=== PATIENT | male | born 1935 | race Caucasian/White ===

== ENCOUNTER 2019-08-27 11:14 | Inpatient (IN) | payer MEDICARE ==
[~2019-08-27] VITALS: Ht 170.2 cm; Wt 73.2 kg
[~2019-08-27 11:14] MED LIST: AMILODIPINE PO; FISHCAP PO; FLOM0.4C39 PO; LISIPOW PO; LOVASTATIN PO; METROPROL PO; MULTLIQ7 PO; OXYC1TAB23 PO; PRADAXA PO; SAWPOW XX; TYLENOL PO; VITAMIN D PO
[2019-08-27] MEDS ORDERED: XARE20TA PO (11:46)
[2019-08-27] MEDS ORDERED: FURO20TA2 PO (11:46)
[2019-08-27] MEDS ORDERED: CO Q200C10 PO (11:46)
[2019-08-27] MEDS ORDERED: DITR5TAB PO (11:46)
[2019-08-27] MEDS ORDERED: FINA5TAB2 PO (11:46)
[2019-08-27] MEDS ORDERED: CEPH500C PO (11:47)
[2019-08-27 13:31] LABS: BASO % 0.3 % (0.0-1.0); EOS # 0.1 10^3/uL (0.0-0.5); EOS % 0.8 % (0.0-3.0); HEMOGLOBIN 13.9 g/dl (13.5-17.5); LYMPH # 0.7 10^3/uL (1.5-5.0); LYMPH % 12.2 % (24.0-44.0); MEAN CORPUSCULAR HEMOGLOBIN 31.2 pg (27.0-33.0); MEAN CORPUSCULAR HGB CONC 33.1 g/dl (32.0-36.5); MEAN CORPUSCULAR VOLUME 94.4 fl (80.0-96.0); MONO # 0.7 10^3/uL (0.0-0.8); MONO % 11.5 % (0.0-5.0); NEUTROPHILS # 4.5 10^3/uL (1.5-8.5); NEUTROPHILS % 73.4 % (36.0-66.0); PLATELET COUNT, AUTOMATED 180 10^3/uL (150-450); RED BLOOD COUNT 4.45 10^6/uL (4.30-6.10); WHITE BLOOD COUNT 6.1 10^3/uL (4.0-10.0)
--- NOTE | 2019-08-27 13:31 | REP ---
CT of the abdomen and pelvis without IV or bowel contrast for right flank pain: There are no comparisons. There is a large right pleural effusion. The the. The hepatic parenchyma is homogeneous. There are numerous tiny gallbladder calculi, biliary gravel, layering dependently in the gallbladder. The gallbladder is otherwise unremarkable. There is no biliary duct dilatation. The pancreas and spleen are unremarkable. The adrenals are unremarkable. There are no renal calculi. There is no hydronephrosis. There is bilateral renal cortical atrophy. The abdominal aorta is unremarkable except for calcified atheroma. There is no periaortic adenopathy or mass. There is no bowel distension or obstruction. The mesentery is unremarkable. Pelvis: There is an irregular 2.1 cm calcification with irregular margins posterolaterally in the bladder on the left. The there is sigmoid colon diverticulosis without diverticulitis. There is no pelvic adenopathy or ascites. There is a left hip arthroplasty resulting in beam hardening artifact and image degradation in the inferior pelvis. There is advanced osteoarthritis of the right hip. There is degenerative disc disease throughout the lumbar spine. Impression: Large right pleural effusion. There are no renal or ureteral calculi. No hydronephrosis. There are a few small atheromatous calcifications in the kidneys. Abdominal aorta is unremarkable. No bowel distension or obstruction. No ascites. Diverticulosis without diverticulitis. 2.1 cm calcification per STIR laterally in the bladder with irregular margins. Multilevel lumbar spine degenerative disc disease. Advanced right hip osteoarthritis. Left hip arthroplasty. Electronically Signed by Abraham Viramontes MD 08/27/2019 01:22 P
[2019-08-27 13:40] LABS: INR 2.31; PROTHROMBIN TIME 25.2 SECONDS (11.8-14.0)
[2019-08-27 13:41] LABS: PARTIAL THROMBOPLASTIN TIME 43.4 SECONDS (25.0-38.4)
[2019-08-27 13:49] LABS: CALCIUM LEVEL 8.5 MG/DL (8.8-10.2); CREATININE FOR GFR 1.22 MG/DL (0.70-1.30); POTASSIUM SERUM 4.1 MEQ/L (3.5-5.1)
[2019-08-27] MEDS ORDERED: METO25TA4 PO (16:10)
[2019-08-27] MEDS ORDERED: LOVA40TA PO (16:10)
[2019-08-27] MEDS ORDERED: TAMS1CAP17 PO (16:10)
[2019-08-27] MEDS ORDERED: LISI-672 PO (16:10)
[2019-08-27] MEDS ORDERED: CO Q1CAP2 PO (16:10)
[2019-08-27] MEDS ORDERED: KP F1200 PO (16:10)
[2019-08-27] MEDS ORDERED: MAALOX 30 ML SUSP *UDC PO PRN (16:30)
[2019-08-27] MEDS ORDERED: MOM 30ML SUSPENSION UDC PO PRN (16:30)
--- NOTE | 2019-08-27 16:48 | HPEPDOC ---
General Date of Admission 08/27/19 Date of Service: Aug 27, 2019 Chief Complaint The patient is a 84-year-old male admitted with a reason for visit of Blood In Urine. Source: Patient Exam Limitations: No limitations Timing/Duration: Other (2-3 days) Severity: Mild Associated Symptoms: Weakness, Other (. Right flank pain and hematuria) History of Present Illness This is a very pleasant 84 years old white male with past medical history of coronary artery disease status post aortic valve replacement with bio prosthetic valve, possible CABG, but he is not sure hypertension, hyperlipidemia, atrial fibrillation, BPH, history of right pleural effusion wasn't his usual state of health since last 2-3 days when he noticed large amount of blood in the urine and he was seen at an urgent care where he was prescribed Keflex for UTI. Patient this morning, developed waves of right flank pain which is dull, intermittent, nonradiating, associated with hematuria, not relieved with any pain meds. No chest pain, no shortness of breath. Patient is being admitted with the diagnosis of hematuria and large right pleural effusion Home Medications Scheduled Cephalexin (Cephalexin) 500 Mg Capsule, 500 MG PO TID, (Reported) Finasteride (Finasteride) 5 Mg Tablet, 5 MG PO DAILY, (Reported) Fish Oil/Dha/Epa (Fish Oil 1,200 mg Fish Oil) 1 Each Capsule, 1 CAP PO BID, (Reported) Furosemide (Furosemide) 20 Mg Tablet, 20 MG PO DAILY, (Reported) Lisinopril (Lisinopril) 30 Mg Tablet, 30 MG PO DAILY, (Reported) Lovastatin (Lovastatin) 40 Mg Tablet, 80 MG PO QHS, (Reported) Metoprolol Tartrate (Metoprolol Tartrate) 25 Mg Tablet, 25 MG PO BID, (Reported) PCP INSTRUCTED PT THAT THEY MAY TAKE A THIRD TABLET DURING THE DAY NEEDED FOR HEART RATE AND HIGH BLOOD PRESSURE Oxybutynin Chloride (Ditropan Xl) 5 Mg Tab.er.24, 5 MG PO DAILY, (Reported) Rivaroxaban (Xarelto) 20 Mg Tablet, 20 MG PO QPM, (Reported) WITH DINNER Tamsulosin Hcl (Tamsulosin HCl) 0.4 Mg Capsule, 0.4 MG PO DAILY, (Reported) Ubidecarenone (Co Q-10) 200 Mg Capsule, 200 MG PO DAILY, (Reported) Allergies Coded Allergies: No Known Allergies (Unverified , 08/27/19) Past Medical History Medical History A. fib, hypertension, hyperlipidemia, aortic wall replacement, questionable C ABG, BPH Surgical History Bioprosthetic aortic valve, left hip replacement, carpal tunnel syndrome repair on left side Family History Significant Family History: No pertinent family hx Social History * Smoker: Denies Alcohol: rarely A-FIB/CHADSVASC A-FIB History Current/History of A-Fib/PAF?: Yes Current PO Anticoag Therapy: Yes Review of Systems Constitutional: Denies: Chills, Fever, Malaise, Night Sweats, Weakness, Fatigue, Weight Loss, Lethargy, Other Eyes: Denies: Pain, Vision change, Conjunctivae inflammation, Eyelid inflammation, Redness, Other ENT: Denies: Head Aches, Ear Pain, Dysphagia, Sinus Congestion, Post Nasal Drip, Sore Throat, Epistaxis, Other Symptoms Skin: Denies: Rash, Lesions, Jaundice, Bruising, Itching, Dry, Breakdown, Nail Changes, Other Pulmonary: Denies: Dyspnea, Cough, Pleuritic Chest Pain, Other Symptoms Gastrointestinal: Reports: Other Symptoms (and right flank pain) Genitourinary: Reports: Hematuria (, hematuria), Other Symptoms Hematologic: Denies: Bruising, Bleeding Excessively, Petecchia, Purpura, Enlarged Lymph Nodes, Other Hematologic Endocrine: Denies: Polydipsia, Polyphagia, Polyuria, Heat Intolerance, Cold Intolerance, Other Endocrine Sx Musculoskeletal: Denies: Neck Pain, Back Pain, Shoulder Pain, Arm Pain, Hand Pain, Leg Pain, Foot Pain, Joint Pain, Muscle Pain, Spasms, Other Symptoms Neurological: Denies: Weakness, Numbness, Incoordination, Change in speech, Confusion, Seizures, Other Symptoms Psych: Denies: Mood Normal, Anxiety, Depression, Memory Issues, Thoughts of Self Harm, Anger, Thoughts of Harming Other, Other Psych Physical Examination General Exam: Positive: Alert, Cooperative Eye Exam: Positive: PERRLA, Conjunctiva & lids normal ENT Exam: Positive: Atraumatic, Mucous membr. moist/pink Neck Exam: Positive: Supple, JVD Chest Exam: Positive: Clear to auscultation, Normal air movement Heart Exam: Positive: Rate Normal, Normal S1, Normal S2 Abdomen Exam: Positive: Normal bowel sounds, Soft, Tenderness (. No tenderness, no positive Ordoñez's punch on right side) Extremity Exam: Positive: Normal pulses Skin Exam: Negative: Nl turgor and temperature, Rash, Breakdown, Lesion, Pruritus, Other skin issue Neuro Exam: Negative: Normal Gait, Normal Speech, Strength at 5/5 X4 ext, Normal Tone, Sensation Intact, Cranial Nerves 3-12 NL, Reflexes 2+, Other Psych Exam: Negative: Mental status NL, Mood NL, Anxiety, Memory Intact, Oriented x 3, Other Vital Signs Vital Signs Date Time Temp Pulse Resp B/P (MAP) Pulse Ox O2 Delivery O2 Flow Rate FiO2 08/27/19 16:01 63 16 142/90 (107) 97 Room Air 08/27/19 11:15 98.0 Laboratory Data Labs 24H Laboratory Tests 2 08/27/19 12:55: Immature Granulocyte % (Auto) 1.8, Neutrophils (%) (Auto) 73.4H, Lymphocytes (%) (Auto) 12.2L, Monocytes (%) (Auto) 11.5H, Eosinophils (%) (Auto) 0.8, Basophils (%) (Auto) 0.3, Neutrophils # (Auto) 4.5, Lymphocytes # (Auto) 0.7L, Monocytes # (Auto) 0.7, Eosinophils # (Auto) 0.1, Basophils # (Auto) 0.0, Nucleated Red Blood Cells % (auto) 0.0, Prothrombin Time 25.2H, Prothromb Time International Ratio 2.31, Activated Partial Thromboplast Time 43.4H, Urine Color ARMANDO, Urine Appearance CLOUDYH, Urine pH 5.0, Urine Specific [place] 1.015, Urine Protein 1+H, Urine Glucose (UA) NEGATIVE, Urine Ketones NEGATIVE, Urine Blood 3+H, Urine Nitrite NEGATIVE, Urine Bilirubin NEGATIVE, Urine Urobilinogen 0.2, Urine Leukocyte Esterase NEGATIVE, Urine WBC (Auto) 27H, Urine RBC (Auto) TNTCH, Urine Hyaline Casts (Auto) 0, Urine Bacteria (Auto) 1+H, Urine Squamous Epithelial Cells 0, Urine Amorphous Sediment SMALLH, Urine Mucus (Auto) SMALL, Urine Sperm (Auto) , Anion Gap 7L, Glomerular Filtration Rate 60.0, Calcium Level 8.5L, NT- Pro-B-Type Natriuretic Peptide 3124H CBC/BMP Laboratory Tests 08/27/19 12:55 Microbiology Microbiology 08/27/19 Urine Culture, Received Pending Problems (1) Pleural effusion, right Status: Acute Problem Text: 84 years old white male with past medical history of CAD, status post aortic wall replacement with bioprosthesis. Questionable history of CABG, also in the past has developed right pleural effusion which was drained at [facility]. He presented this time with right flank pain and CAT scan of abdomen and pelvis essentially showed: Large right pleural effusion. There are no renal or ureteral calculi. No hydronephrosis. There are a few small atheromatous calcifications in the kidneys. Abdominal aorta is unremarkable. No bowel distension or obstruction. No ascites. Diverticulosis without diverticulitis. 2.1 cm calcification per STIR laterally in the bladder with irregular margins. Multilevel lumbar spine degenerative disc disease. Advanced right hip osteoarthritis. Left hip arthroplasty. His WBC count 6.1, hemoglobin 13.9, hematocrit 42, platelets of 1 ED [place] normal with BUN of 50 and creatinine 1.22. INR is 2.31 and BNP 3124 Admit patient to PCU with patient monitor Echocardiogram Serial troponin Continue home meds Hold Xarelto Thoracentesis in a.m. Cardiology consultation with Dr. Eller has been requested Continue all other home meds Further, as per cardiology recommendations DVT prophylaxis with bilateral SCDs Diet 2 g sodium Activity as tolerated (2) Hematuria Status: Acute Problem Text: Hematuria, most likely secondary to Xarelto and possible UTI Urine cultures have been sent from ED Will start Rocephin 1 g IV piggyback every 24 hours Hold Xarelto Monitor H&H and a urine (3) HTN (hypertension) Status: Chronic Problem Text: Continue home meds (4) Atrial fibrillation Status: Chronic Problem Text: Telemetry monitoring Continue home meds Hold Xarelto Rodas consult in a.m. (5) History of prosthetic aortic valve Status: Chronic Problem Text: Continue home meds (6) Hyperlipemia Status: Chronic Problem Text: Continue home meds Plan / VTE VTE Prophylaxis Ordered?: Yes KIRILL WYNN MD Aug 27, 2019 16:48
[2019-08-27] MEDS ORDERED: cefTRIAXone SOD 1 GM in D5W MINI-BAG PLUS 50 ML IV SCH (17:00)
--- NOTE | 2019-08-27 17:25 | REP ---
Chest x-ray: Two views. History: Large right pleural effusion. Comparison: Chest x-ray August 07, 2012. Findings: The patient is status post prior median sternotomy and aortic valve replacement. Mild cardiomegaly is observed. The left lung is clear. Pulmonary vasculature is not increased. On the right, there is a blunting of the posterior and lateral pleural angles consistent with a moderate right pleural effusion. Right lung is otherwise clear. No bony destructive lesion is seen. Impression: Status post aortic valve replacement. Moderate right pleural effusion noted. Otherwise no active disease. Electronically Signed by Davis Grimes MD 08/27/2019 07:38 P
[2019-08-27 18:30] VITALS: BP 144/82
[2019-08-27] MEDS ORDERED: SLF 3 ML SYR IV PRN (18:45)
[2019-08-27 20:00] VITALS: BP 146/75
[2019-08-27] MEDS: DOCUSATE SODIUM 100 MG CAP PO SCH (20:12)
[2019-08-27] MEDS: SIMVASTATIN 40 MG TAB PO SCH (20:12)
[2019-08-27] MEDS: METOPROLOL TART 25 MG TABLET PO SCH (20:14)
[2019-08-27] MEDS: SLF 3 ML SYR IV SCH (20:17)
[2019-08-27] MEDS: ACETAMINOPHEN TAB 650MG DOSE (2X325MG) PO PRN (20:23)
[2019-08-27 23:59] VITALS: BP 147/72
[2019-08-28] MEDS: ACETAMINOPHEN TAB 650MG DOSE (2X325MG) PO PRN ×5 (00:31→20:34)
[2019-08-28 04:00] VITALS: BP 152/70
[2019-08-28] MEDS: SLF 3 ML SYR IV SCH ×3 (04:33→21:10)
[2019-08-28 05:56] LABS: HEMATOCRIT 39.9 % (42.0-52.0); HEMOGLOBIN 13.3 g/dl (13.5-17.5); MEAN CORPUSCULAR HEMOGLOBIN 31.3 pg (27.0-33.0); MEAN CORPUSCULAR HGB CONC 33.3 g/dl (32.0-36.5); MEAN CORPUSCULAR VOLUME 93.9 fl (80.0-96.0); PLATELET COUNT, AUTOMATED 161 10^3/uL (150-450); RED BLOOD COUNT 4.25 10^6/uL (4.30-6.10); WHITE BLOOD COUNT 6.8 10^3/uL (4.0-10.0)
[2019-08-28 06:08] LABS: INR 1.5; PROTHROMBIN TIME 17.8 SECONDS (11.8-14.0)
[2019-08-28 06:31] LABS: ALBUMIN 2.9 GM/DL (3.2-5.2); ALT/SGPT 19 U/L (12-78); BILIRUBIN,TOTAL 1.5 MG/DL (0.2-1.0); BLOOD UREA NITROGEN 41 MG/DL (7-18); CALCIUM LEVEL 8.4 MG/DL (8.8-10.2); CARBON DIOXIDE LEVEL 26 MEQ/L (21-32); CHLORIDE LEVEL 106 MEQ/L (98-107); CREATININE FOR GFR 1.14 MG/DL (0.70-1.30); GLOMERULAR FILTRATION RATE > 60.0 (>35); GLUCOSE, FASTING 113 MG/DL (70-100); MAGNESIUM LEVEL 2.2 MG/DL (1.8-2.4); POTASSIUM SERUM 4.2 MEQ/L (3.5-5.1); SODIUM LEVEL 139 MEQ/L (136-145); TOTAL PROTEIN 6.6 GM/DL (6.4-8.2); TROPONIN I < 0.02 NG/ML (< 0.10)
[2019-08-28 07:47] VITALS: BP 190/100
[2019-08-28] MEDS ORDERED: FLUBLOK(EGG FREE)(QUAD)INFLUENZA VACC 0.5ML SYRINGE (90682)18YRS&OLDER IM ONE (09:00)
[2019-08-28] MEDS: DOCUSATE SODIUM 100 MG CAP PO SCH ×2 (09:32→20:33)
[2019-08-28] MEDS: oxyBUTYnin *DITROPAN XL* 5 MG TABCR PO SCH (09:33)
[2019-08-28] MEDS: TAMSULOSIN 0.4 MG CAP PO SCH (09:33)
[2019-08-28] MEDS: lisinopriL 10 MG TAB PO SCH (09:33)
[2019-08-28] MEDS: FINASTERIDE 5 MG TAB PO SCH (09:33)
[2019-08-28] MEDS: FUROSEMIDE 20 MG TAB PO SCH (09:34)
[2019-08-28] MEDS: METOPROLOL TART 25 MG TABLET PO SCH ×2 (09:34→20:33)
--- NOTE | 2019-08-28 10:52 | IPNPDOC ---
Subjective Date Seen The patient was seen on 08/28/19. Subjective Chief Complaint/HPI Patient is comfortable is still complaining of right flank pain comes in waves. No fever, no nausea, vomiting, no abdominal pain. Still has hematuria Eyes: Denies: Pain, Vision change Pulmonary: Denies: Dyspnea, Cough, Pleuritic Chest Pain, Other Symptoms Cardiovascular: Denies: Chest Pain, Palpitations, Orthopnea, Paroxysmal Noc. Dyspnea, Edema, Lt Headedness, Other Symptoms Gastrointestinal: Denies: Nausea, Vomiting, Abdominal Pain, Diarrhea, Constipat ion, Melena, Hematochezia, Other Symptoms Genitourinary: Reports: Hematuria, Other Symptoms (right flank pain) Musculoskeletal: Denies: Neck Pain, Back Pain, Shoulder Pain, Arm Pain, Hand Pain, Leg Pain, Foot Pain, Joint Pain, Muscle Pain, Spasms, Other Symptoms Neurological: Denies: Weakness, Numbness, Incoordination, Change in speech, Confusion, Seizures, Other Symptoms Objective Physical Examination ENT Exam: Positive: Atraumatic, Mucous membr. moist/pink Neck Exam: Positive: Supple, JVD Chest Exam: Positive: Clear to auscultation, Normal air movement Heart Exam: Positive: Rate Normal, Normal S1, Normal S2 Abdomen Exam: Positive: Normal bowel sounds, Soft, Tenderness (. No tenderness, no positive Ordoñez's punch on right side) Extremity Exam: Positive: Normal pulses Skin Exam: Positive: Nl turgor and temperature Neuro Exam: Positive: Strength at 5/5 X4 ext, Cranial Nerves 3-12 NL Assessment /Plan Problems (1) Flank pain Status: Acute Problem Text: Right flank pain, etiology is still unknown CT of the abdomen and pelvis did not show any acute kidney processes are kidney stones No evidence of any retroperitoneal bleed on CT abdomen, pelvis Get renal ultrasound on right side to further evaluate the symptoms H&H within normal range. INR 1.50 Symptomatic care (2) Pleural effusion, right Status: Acute Problem Text: Xarelto is on hold Scheduled for thoracentesis Echocardiogram is pending Patient will be seen by Dr. Eller case was discussed with him today Continue home meds (3) HTN (hypertension) Status: Chronic Problem Specific Plan: Consult Specialist Problem Text: Continue all present home meds (4) Hyperlipemia Status: Chronic Problem Text: Continue home meds (5) Atrial fibrillation Status: Chronic Problem Text: Rate is under well control, Xarelto is on hold. We'll continue all home meds (6) Hematuria Status: Acute Problem Text: H&H stable. We'll monitor patient's urine for continuous bleeding and renal sonogram has been ordered CBC in a.m. Xarelto on hold Plan/VTE VTE Prophylaxis Ordered?: Yes VS, I&O, 24H, Fishbone Vital Signs/I&O Vital Signs Date Time Temp Pulse Resp B/P (MAP) Pulse Ox O2 Delivery O2 Flow Rate FiO2 08/28/19 07:47 98.0 90 18 190/100 (130) 97 Room Air I&O- Last 24 Hours up to 6 AM 08/28/19 06:00 Intake Total 410 ml Output Total 700 ml Balance -290 ml Laboratory Data 24H LABS Laboratory Tests 2 08/27/19 12:55: Immature Granulocyte % (Auto) 1.8, Neutrophils (%) (Auto) 73.4H, Lymphocytes (%) (Auto) 12.2L, Monocytes (%) (Auto) 11.5H, Eosinophils (%) (Auto) 0.8, Basophils (%) (Auto) 0.3, Neutrophils # (Auto) 4.5, Lymphocytes # (Auto) 0.7L, Monocytes # (Auto) 0.7, Eosinophils # (Auto) 0.1, Basophils # (Auto) 0.0, Nucleated Red Blood Cells % (auto) 0.0, Prothrombin Time 25.2H, Prothromb Time International Ratio 2.31, Activated Partial Thromboplast Time 43.4H, Urine Color ARMANDO, Urine Appearance CLOUDYH, Urine pH 5.0, Urine Specific [place] 1.015, Urine Protein 1+H, Urine Glucose (UA) NEGATIVE, Urine Ketones NEGATIVE, Urine Blood 3+H, Urine Nitrite NEGATIVE, Urine Bilirubin NEGATIVE, Urine Urobilinogen 0.2, Urine Leukocyte Esterase NEGATIVE, Urine WBC (Auto) 27H, Urine RBC (Auto) TNTCH, Urine Hyaline Casts (Auto) 0, Urine Bacteria (Auto) 1+H, Urine Squamous Epithelial Cells 0, Urine Amorphous Sediment SMALLH, Urine Mucus (Auto) SMALL, Urine Sperm (Auto) , Anion Gap 7L, Glomerular Filtration Rate 60.0, Calcium Level 8.5L, MU-Dwb-T-Type Natriuretic Peptide 3124H 08/27/19 23:56: Troponin I < 0.02 2/5/20 05:32: Nucleated Red Blood Cells % (auto) 0.0, Prothrombin Time 17.8H, Prothromb Time International Ratio 1.50, Anion Gap 7L, Glomerular Filtration Rate > 60.0, Juan cium Level 8.4L, Troponin I < 0.02, Magnesium Level 2.2, Total Bilirubin 1.5H, Aspartate Amino Transf (AST/SGOT) 19, Alanine Aminotransferase (ALT/SGPT) 19, Alkaline Phosphatase 76, Total Protein 6.6, Albumin 2.9L, Albumin/Globulin Ratio 0.78L CBC/BMP Laboratory Tests 08/27/19 12:55 08/28/19 05:32 Microbiology Microbiology 08/27/19 Urine Culture - Final, Complete KIRILL WYNN MD Aug 28, 2019 10:52
[2019-08-28 13:00] VITALS: BP 162/78
--- NOTE | 2019-08-28 13:30 | REP ---
Urinary tract sonography: History: Right flank pain. Comparison CT study August 27, 2019. Sonographic findings: Scanning at the level of the urinary bladder demonstrates marked elevation of the bladder base with prostate hypertrophy. Prostate dimensions by transabdominal sonography are 4.7 x 5.0 x 4.7 cm. Calculated glandular volume 72.1 mL. There is a shadowing echogenic focus in the left posterior bladder lumen at the level of the left ureteral orifice region measuring 2.8 x 1.9 x 2.1 cm. This casts acoustic shadowing and is felt to correspond with a large bladder calculus seen on yesterday's CT study. Renal cortical echogenicity pattern is normal and renal contours are smooth. The right renal dimensions are 15.1 x 5.4 x 6.8 cm. Left kidney dimensions are 13.7 x 3.7 x 5.7 cm. On the right there is mild hydronephrosis with 10 mm diameter proximal ureter. There is a non-shadowing hyperechoic area in the renal pelvis on the right 2.9 x 1.4 x 1.7 cm in greatest diameter. No internal flow is seen. Possibilities include proteinaceous sludge like material, polypoid tissue, or thrombus. On the left there is evidence of mild hydroureter but no intrarenal hydronephrosis is seen. There is a cyst at the lower pole peripherally on the left measuring 2.2 x 2.8 x 1.4 cm. This projects anteriorly. Impression: 1. Large bladder calculus. 2. Marked prostate enlargement with elevation of the bladder base. 3. Right-sided hydronephrosis. There is a slightly hyperechoic non-shadowing material in the dilated renal pelvis on the right of uncertain etiology as discussed above. Thrombus versus polypoid tissue. 4. Peripheral cyst lower pole left kidney. Electronically Signed by Davis Grimes MD 08/28/2019 02:38 P
--- NOTE | 2019-08-28 14:54 | ECGEPIP ---
[facility] - ED Test Date: 2019-08-27 Pat Name: NORIS WYATT Department: Room: - Gender: Male [employer]: : 1935 Requested By: LAURA BARBOZA PA-C. Order Number: [id number] Reading MD: Indy Talavera Measurements Intervals [place]very Rate: 82 P: MO: 0 QRS: 108 QRSD: 126 T: 3 QT: 368 QTc: 431 Interpretive Statements ATRIAL FIBRILLATION MARKED RIGHT AXIS DEVIATION RIGHT BUNDLE BRANCH BLOCK baseline artifact may affect interpretation Electronically Signed on 08-28-2019 14:54:39 EST by Indy Talavera
[2019-08-28] MEDS ORDERED: PIPERACILLIN/TAZOBACTAM SOD 3.375 GM in D5W MINI-BAG PLUS 50 ML IV SCH (15:15)
[2019-08-28 16:00] VITALS: BP 119/58
--- NOTE | 2019-08-28 16:45 | SMCUROLCON ---
Urology Consultation General Date of Consultation 08/28/19 Reason For Consultation This patient is seen for Hematuria Pleural Effusion Rt. History of Present Illness This is an 84 y/o M w/ PMH significant for CAD, CVD, a fib (on xarelto), and BPH, admitted for a right pleural effusion and gross hematuria. The patient notes that he has been having gross hematuria intermittently for a few months, but for the last few days the hematuria has become heavier. He has also had right flank pain that has increased some over the last few days. A CT A/P was obtained on admission and was notable for a >2cm bladder stone and mild right hydronephrosis w/ no obvious cause of obstruction. A renal US was done today that demonstrated the same findings. Other than gross hematuria, the patient has no urinary complaints. He denies dysuria and feels that he empties his bladder well. He has been on flomax and proscar for several years for BPH and feels that these work well to help him void. At this time he notes that his flank pain is controlled. He has taken tylenol only for this. Past Medical History Medical History see HPI Surgical Hstory CABG, cardiac valve replacement, left hip replacement, carpal tunnel surgery Medications Current Medications Current Medications Medications (Trade) Dose Ordered Sig/Vicenta Route PRN Reason Start Time Stop Time Status Last Admin Dose Admin Acetaminophen (Tylenol Tab) 650 mg Q4H PRN PO PAIN OR FEVER 08/27/19 16:30 08/28/19 13:48 Al Hydrox/Mg Hydrox/Simethicone (Mylanta) 30 ml DAILY PRN PO DYSPEPSIA 08/27/19 16:30 Ceftriaxone Sodium 1 gm/ Dextrose 50 ml @ 100 mls/hr Q24H IV 08/27/19 17:00 08/28/19 15:15 DC 08/27/19 17:29 Docusate Sodium (Colace) 100 mg BID PO 08/27/19 21:00 08/28/19 09:32 Finasteride (Proscar) 5 mg DAILY PO 08/28/19 09:00 08/28/19 09:33 Furosemide (Lasix) 20 mg DAILY PO 08/28/19 09:00 08/28/19 09:34 Home Med (Med Rec Complete!) ASDIRECTED XX 08/27/19 16:15 08/27/19 16:13 DC Lisinopril (Prinivil) 30 mg DAILY PO 08/28/19 09:00 08/28/19 09:33 Magnesium Hydroxide (Milk Of Magnesia) 30 ml DAILY PRN PO CONSTIPATION 08/27/19 16:30 Metoprolol Tartrate (Lopressor) 25 mg BID PO 08/27/19 21:00 08/28/19 09:34 Oxybutynin Chloride (Ditropan Xl) 5 mg DAILY PO 08/28/19 09:00 08/28/19 09:33 Piperacillin Sod/ Tazobactam Sod 3.375 gm/Dextrose 50 ml @ 50 mls/hr Q6H IV 08/28/19 15:15 Simvastatin (Zocor) 80 mg QHS PO 08/27/19 21:00 08/27/19 20:12 Sodium Chloride (Saline Lock Flush) 2 ml ASDIRECTED PRN IV SEE LABEL COMMENTS 08/27/19 18:45 Sodium Chloride (Saline Lock Flush) 2 ml SLF IV 08/27/19 22:00 08/28/19 14:31 Tamsulosin HCl (Flomax) 0.4 mg DAILY PO 08/28/19 09:00 08/28/19 09:33 Allergies Allergies: Coded Allergies: No Known Allergies (Unverified , 08/27/19) Review of Systems General: Reports: Chills (earlier this afternoon) Constitutional: Reports: Fever (earlier this afternoon) Skin: Denies: Rash, Lesions, Breakdown, Nail Changes Pulmonary: Denies: Dyspnea, Cough Cardiovascular: Denies Chest Pain Gastrointestinal: Reports: Nausea, Abdominal Pain (lower right) Genitourinary: Reports: Hematuria; Denies: Dysuria, Frequency, Incontinence Musculoskeletal: Reports: Back Pain (right flank) Psych: Reports: Mood Normal Physical Examination General Exam: Alert, Cooperative, No Acute Distress Chest Exam: Normal air movement Heart Exam: Rate Normal Abdomen Exam: Soft, Tenderness (mild lower right) Skin Exam: Nl turgor and temperature Neuro Exam: Normal Speech Psych Exam: Mental status NL, Mood NL Vital Signs/I&O Vital Signs Date Time Temp Pulse Resp B/P (MAP) Pulse Ox O2 Delivery O2 Flow Rate FiO2 08/28/19 16:00 99.9 113 18 119/58 (78) 92 Room Air I&O- Last 24 Hours up to 6 AM 08/28/19 06:00 Intake Total 410 ml Output Total 700 ml Balance -290 ml Laboratory Data 24H Labs Laboratory Tests 2 08/27/19 23:56: Troponin I < 0.02 08/28/19 05:32: Troponin I < 0.02, Nucleated Red Blood Cells % (auto) 0.0, Prothrombin Time 17.8H, Prothromb Time International Ratio 1.50, Anion Gap 7L, Glomerular Filtration Rate > 60.0, Calcium Level 8.4L, Magnesium Level 2.2, Total Bilirubin 1.5H, Aspartate Amino Transf (AST/SGOT) 19, Alanine Aminotransferase (ALT/SGPT) 19, Alkaline Phosphatase 76, Total Protein 6.6, Albumin 2.9L, Albumin/Globulin Ratio 0.78L CBC/BMP Laboratory Tests 08/28/19 05:32 Microbiology Microbiology 08/27/19 Urine Culture - Final, Complete Assessment This is an 84 y/o M admitted w/ a large right pleural effusion and gross hematuria. The gross hematuria is the result of his large bladder stone and his blood thinner. I explained that it should be safe for him to go back on his blood thinner and to expect on and off hematuria until we remove his bladder stone. Regarding the right flank/lower abdominal pain, I am not certain if this is due to the kidney. His hydro is mild and could potentially be due to a recently passed kidney stone. If the pain persists, then we could investigate w/ a right ureteroscopy at the time of the bladder stone surgery. Plan - recommend checking a PVR as the bladder stone could have formed as a result of him retaining urine - ok from my standpoint to resume xarelto after he has his pleural effusion drained - I will arrange outpatient cystoscopy to confirm the finding of a bladder stone and rule out other bladder pathology - assuming only a bladder stone is seen, we will set him up for laser cystolitholapaxy (and possible right ureteroscopy) in the OR - plan of care discussed in detail w/ the patient and his family JEOVANY ORONA MD Aug 28, 2019 16:45
[2019-08-28] MEDS: PIPERACILLIN/TAZOBACTAM SOD 3.375 GM in D5W MINI-BAG PLUS 50 ML IV SCH ×2 (18:08→23:43)
[2019-08-28 20:00] VITALS: BP 107/57
[2019-08-28] MEDS: SIMVASTATIN 40 MG TAB PO SCH (20:33)
[2019-08-28 23:59] VITALS: BP 95/61
[2019-08-29] VITALS (14 sets, daily range): BP systolic 102–155; BP diastolic 65–86; O2SAT 97–100
[2019-08-29] MEDS: PIPERACILLIN/TAZOBACTAM SOD 3.375 GM in D5W MINI-BAG PLUS 50 ML IV SCH ×3 (05:33→17:47)
[2019-08-29] MEDS: SLF 3 ML SYR IV SCH ×3 (05:34→20:53)
[2019-08-29 06:05] LABS: BASO % 0.1 % (0.0-1.0); EOS % 0.1 % (0.0-3.0); HEMATOCRIT 37.1 % (42.0-52.0); HEMOGLOBIN 12.3 g/dl (13.5-17.5); LYMPH # 0.9 10^3/uL (1.5-5.0); LYMPH % 7.3 % (24.0-44.0); MEAN CORPUSCULAR HEMOGLOBIN 31.2 pg (27.0-33.0); MEAN CORPUSCULAR HGB CONC 33.2 g/dl (32.0-36.5); MEAN CORPUSCULAR VOLUME 94.2 fl (80.0-96.0); MONO % 8.4 % (0.0-5.0); NEUTROPHILS # 9.7 10^3/uL (1.5-8.5); NEUTROPHILS % 83.6 % (36.0-66.0); PLATELET COUNT, AUTOMATED 156 10^3/uL (150-450); RED BLOOD COUNT 3.94 10^6/uL (4.30-6.10); WHITE BLOOD COUNT 11.6 10^3/uL (4.0-10.0)
[2019-08-29 06:15] LABS: INR 1.41
[2019-08-29 06:31] LABS: ALBUMIN 2.4 GM/DL (3.2-5.2); BILIRUBIN,TOTAL 1.5 MG/DL (0.2-1.0); CALCIUM LEVEL 8.1 MG/DL (8.8-10.2); CREATININE FOR GFR 1.34 MG/DL (0.70-1.30); GLOMERULAR FILTRATION RATE 53.8 (>35); POTASSIUM SERUM 4.1 MEQ/L (3.5-5.1); TOTAL PROTEIN 5.9 GM/DL (6.4-8.2)
--- NOTE | 2019-08-29 08:33 | CR ---
DATE OF CONSULTATION: 08/29/2019 REFERRING PHYSICIAN: Dr. Zarate INDICATION: Right pleural effusion atrial fibrillation. HISTORY OF PRESENT ILLNESS: Mr. Phillips is previously unknown to me. He is followed by Dr. Berman in [place] and from cardiology has been seeing Dr. Eduardo Salgado also in [place] office. He presented to our facility because of right flank pain and gross hematuria. It was suspected that he is going to have a ureteral stone, but turns out that he had a stone in his bladder. There is also relatively unimpressive right-sided hydronephrosis. He was already seen by urology and there is a tentative plan for outpatient cystoscopy. I was asked to see him because the CT scan of the abdomen performed for suspected hydronephrosis revealed large right pleural effusion. The patient does have a history of prior right pleural effusion. He was hospitalized in [facility] in [place] last the year in November and December and underwent thoracentesis. Unfortunately, I am not quite sure what was the conclusion from the analysis of the fluid but subsequently he was given low-dose diuretics. It does not seem that it made any significant difference. The patient surprisingly denies significant dyspnea but admits that he has been quite sedentary. There has been no peripheral edema and no paroxysmal nocturnal dyspnea (PND). He also denies any anginal symptoms. PAST MEDICAL HISTORY: 1. Coronary artery disease, history of coronary artery bypass surgery in 2008 (TORRES to LAD, sequential SVG to RCA and posterolateral branch, SVG to OM2). 2. 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 3. Bilateral carotid artery stenosis, known to have less than 50% obstruction based on recent ultrasound. 4. History of embolic stroke in 2010. 5. Hypertension. 6. Hyperlipidemia. 7. Chronic atrial fibrillation. 8. BPH. SURGICAL HISTORY: Is positive for aortic valve replacement, bypass surgery as above, left hip replacement, and right hip replacement. SOCIAL HISTORY: Patient is retired. Does not smoke and does not drink. FAMILY HISTORY: Denies any early coronary artery disease in first-degree relatives. OUTPATIENT MEDICATIONS: - finasteride 5 mg a day - fish oil one capsule twice a day - furosemide 20 mg daily - lisinopril 30 mg daily - lovastatin 80 mg daily - metoprolol tartrate 25 twice a day - Ditropan 5 mg daily - Xarelto 20 mg daily - tamsulosin 0.4 mg daily - Coenzyme Q10 REVIEW OF SYSTEMS: There has not been any recent fever, chills, nausea, vomiting, or diarrhea. He denies any dyspnea with his level of activity. No chest pain. No dizziness, near/syncope. He had pain in his right groin and flank. He has had gross hematuria for several days. No peripheral edema. PHYSICAL EXAMINATION: Mr. Phillips is an elderly white male. He appears younger than his calendar age. He is in no distress, in a good mood, very pleasant. Vital Signs: Blood pressure 102/66. Heart rate has been in 70s and 80s. He is atrial fibrillation. Saturation is 96% on room air. Weight is recorded 74.7 kg. I do not appreciate jugular venous pulse (JVP) elevation. Lungs are clear on the left, on the right they are somewhat diminished over the base, not as impressive as I was expecting. Heart exam reveals irregularly irregular rhythm. The precordial impulse is not displaced. There is only faint murmur of the aortic valve, systolic ejection 1/6, certainly not more than that. I do not appreciate any diastolic murmur and I do not appreciate any apical murmur. Abdomen is soft. There is minimal tenderness around his right flank. No guarding. Extremities are free of edema. Peripheral pulses are palpable. Neurologically, there are no focal deficits. He is alert and oriented and appropriate, and moves all four extremities. LABORATORIES: Basic Metabolic Panel: Sodium 139, potassium 4.1, BUN 49, creatinine 1.3, and glucose 130. Normal liver function tests. Normal troponin and terminal proBNP was 3100 and albumin 2.4. CBC: WBC count 11.6, hemoglobin 12.3, hematocrit 37, platelet count 126,000. An electrocardiogram performed on admission revealed presence of atrial fibrillation with nonspecific repolarization abnormalities. ASSESSMENT AND PLAN: Mr. Phillisp is an 84-year-old man, who has a history of coronary artery bypass surgery and aortic valve replacement in 2008, who presents with martin hematuria and is found to have a large right pleural effusion. There is a plan for thoracentesis today, which I think is appropriate. His anticoagulation has been on hold for the last 2 days. I believe it is important to establish the etiology even though it is most likely going to be transudate. Surprisingly, he has not been bothered by the effusion and it is probably chronic in nature because he had thoracentesis for the same reason a little more than a year ago. Provided it is transudative infusion, I believe we can continue his chronic medications and just increase the dose of diuretics and the followup can be established through his regular strapper, Dr. Salgado. As far as the other issues are concerned, he has no ischemic symptoms and he does not have any trouble with rate control on his current medications. I do not believe there is any reason to change them. After the procedure is performed, the anticoagulation should be restarted. KATTY
[2019-08-29] MEDS: lisinopriL 10 MG TAB PO SCH (09:54)
[2019-08-29] MEDS: FINASTERIDE 5 MG TAB PO SCH (09:54)
[2019-08-29] MEDS: TAMSULOSIN 0.4 MG CAP PO SCH (09:54)
[2019-08-29] MEDS: METOPROLOL TART 25 MG TABLET PO SCH ×2 (09:55→20:53)
[2019-08-29] MEDS: DOCUSATE SODIUM 100 MG CAP PO SCH ×2 (09:55→20:51)
[2019-08-29] MEDS: oxyBUTYnin *DITROPAN XL* 5 MG TABCR PO SCH (09:55)
[2019-08-29] MEDS: FUROSEMIDE 20 MG TAB PO SCH (09:55)
[2019-08-29] MEDS: ACETAMINOPHEN TAB 650MG DOSE (2X325MG) PO PRN (09:58)
[2019-08-29] MEDS ORDERED: PILL CUTTER 1 EACH XX PRN (10:00)
--- NOTE | 2019-08-29 10:42 | IPNPDOC ---
Subjective Date Seen The patient was seen on 08/29/19. Subjective Chief Complaint/HPI Patient offers no new complaints. Still has some hematuria, but now is as gross as was on admission General: Denies: ROS Unobtainable, Chills, Night Sweats, Fatigue, Malaise, Normal Appetite, Other Symptoms Pulmonary: Denies: Dyspnea, Cough, Pleuritic Chest Pain, Other Symptoms Cardiovascular: Denies: Chest Pain, Palpitations, Orthopnea, Paroxysmal Noc. Dyspnea, Edema, Lt Headedness, Other Symptoms Gastrointestinal: Denies: Nausea, Vomiting, Abdominal Pain, Diarrhea, Constipation, Melena, Hematochezia, Other Symptoms Genitourinary: Reports: Hematuria Hematologic: Denies: Bruising, Bleeding Excessively, Petecchia, Purpura, Enlarged Lymph Nodes, Other Hematologic Endocrine: Denies: Polydipsia, Polyphagia, Polyuria, Heat Intolerance, Cold Intolerance, Other Endocrine Sx Musculoskeletal: Denies: Neck Pain, Back Pain, Shoulder Pain, Arm Pain, Hand Pain, Leg Pain, Foot Pain, Joint Pain, Muscle Pain, Spasms, Other Symptoms Neurological: Denies: Weakness, Numbness, Incoordination, Change in speech, Confusion, Seizures, Other Symptoms Psych: Denies: Mood Normal, Anxiety, Depression, Memory Issues, Thoughts of Self Harm, Anger, Thoughts of Harming Other, Other Psych Objective Physical Examination General Exam: Positive: Alert, Cooperative ENT Exam: Positive: Atraumatic, Mucous membr. moist/pink Neck Exam: Positive: Supple, JVD Chest Exam: Positive: Clear to auscultation, Normal air movement Heart Exam: Positive: Rate Normal, Normal S1, Normal S2 Abdomen Exam: Positive: Normal bowel sounds, Soft, Tenderness (. No tenderness, no positive Ordoñez's punch on right side) Extremity Exam: Positive: Normal pulses Skin Exam: Positive: Nl turgor and temperature Neuro Exam: Positive: Strength at 5/5 X4 ext, Cranial Nerves 3-12 NL Assessment /Plan Problems (1) Bladder calculus Status: Acute Problem Text: Large bladder calculus found on renal sonogram. Patient was seen by Dr. Fuller and I have a extensive discussion with Dr. Fuller. Once the thoracentesis is done, patient can be discharged home on his oral anticoagulants and Dr. Fuller reschedule intermittent OR as an outpatient for cystoscopy and possible left laser lithotripsy. Patient is clinically stable after thoracentesis is probably be discharged home on all his current meds and by mouth antibiotics (2) Pleural effusion, right Status: Acute Problem Text: Xarelto is on hold Scheduled for thoracentesis today Echo is still pending (3) HTN (hypertension) Status: Chronic Problem Specific Plan: Consult Specialist Problem Text: Continue all present home meds (4) Hyperlipemia Status: Chronic Problem Text: Continue home meds (5) Atrial fibrillation Status: Chronic Problem Text: Rate is under well control, Xarelto is on hold. We'll continue all home meds (6) Hematuria Status: Acute Problem Text: Most likely secondary to bladder calculus and anticoagulation Patient is H&H stable with hemoglobin of 12.3 and hematocrit 37.1 Monitor H&H. Otherwise, he'll follow with Dr. Fuller as an outpatient Plan/VTE VTE Prophylaxis Ordered?: Yes VS, I&O, 24H, Fishbone Vital Signs/I&O Vital Signs Date Time Temp Pulse Resp B/P (MAP) Pulse Ox O2 Delivery O2 Flow Rate FiO2 08/29/19 09:55 87 119/73 08/29/19 08:00 97.5 14 97 Room Air I&O- Last 24 Hours up to 6 AM 08/29/19 05:59 Intake Total 1230 ml Output Total 1550 ml Balance -320 ml Laboratory Data 24H LABS Laboratory Tests 2 08/29/19 05:45: Immature Granulocyte % (Auto) 0.5, Neutrophils (%) (Auto) 83.6H, Lymphocytes (%) (Auto) 7.3L, Monocytes (%) (Auto) 8.4H, Eosinophils (%) (Auto) 0.1, Basophils (%) (Auto) 0.1, Neutrophils # (Auto) 9.7H, Lymphocytes # (Auto) 0.9L, Monocytes # (Auto) 1.0H, Eosinophils # (Auto) 0.0, Basophils # (Auto) 0.0, Nucleated Red Blood Cells % (auto) 0.0, Prothrombin Time 17.0H, Prothromb Time International Ratio 1.41, Anion Gap 7L, Glomerular Filtration Rate 53.8, Calcium Level 8.1L, Total Bilirubin 1.5H, Aspartate Amino Transf (AST/SGOT) 16, Alanine Aminotransferase (ALT/SGPT) 22, Alkaline Phosphatase 69, Total Protein 5.9L, Albumin 2.4L, Albumin/Globulin Ratio 0.69L CBC/BMP Laboratory Tests 08/29/19 05:45 Microbiology Microbiology 08/28/19 Urine Culture, Received Pending 08/28/19 Blood Culture, Received Pending 08/28/19 Blood Culture, Received Pending 08/27/19 Urine Culture - Final, Complete KIRILL WYNN MD Aug 29, 2019 10:42
--- NOTE | 2019-08-29 15:56 | REP ---
Chest x-ray: Two views. History: Post thoracentesis. The patient is status post right thoracentesis. 1710 mL of pleural fluid removed. Comparison chest x-ray August 27, 2019. Findings: There is a significant decrease in the size of the right pleural effusion. However, there is a small right-sided pneumothorax visible on the postprocedure chest x-ray with air visible at the base and apex of the right lung. The heart is somewhat enlarged. Left lung remains clear. Impression: Small post thoracentesis pneumothorax on the right. Followup suggested. Electronically Signed by Davis Grimes MD 08/29/2019 04:53 P
--- NOTE | 2019-08-29 19:37 | IPNPDOC ---
Text Note Date of Service The patient was seen on 08/29/19. NOTE Per d/w who reviewed the xray done this evening we will order repeat xray in the AM. VS,Fishbone, I+O VS, Fishbone, I+O Laboratory Tests 08/29/19 05:45 Vital Signs Date Time Temp Pulse Resp B/P (MAP) Pulse Ox O2 Delivery O2 Flow Rate FiO2 08/29/19 17:40 97.9 90 18 147/72 (97) 96 Room Air I&O- Last 24 Hours up to 6 AM 08/29/19 06:00 Intake Total 1230 ml Output Total 1300 ml Balance -70 ml ADRIANE SOLOMON MD Aug 29, 2019 19:37
--- NOTE | 2019-08-29 19:44 | REP ---
PA and lateral chest: Comparison is from 03:19 p.m. earlier today post thoracentesis. There is a right pneumothorax over the apex of the right lung with the pleura approximately 18 mm. The pleura by 12 mm. On the study earlier today. There is also a right pneumothorax in the right costophrenic angle. The pleura are by 39 mm. On the study earlier today. The pleura or by 33 mm. Cardiac size is normal. The aliya, mediastinum, skeletal structures are unremarkable. There are sternotomy wires. There is an aortic valve replacement. Impression: Small right pneumothorax has slightly increased in size. Electronically Signed by Abraham Viramontes MD 08/29/2019 07:36 P
--- NOTE | 2019-08-29 20:42 | ECHO ---
DATE OF PROCEDURE: 08/29/2019 REFERRING PHYSICIAN: Dr. Zarate INDICATION: Congestive heart failure, pleural effusion. Aortic valve replacement. HEIGHT: 170 cm WEIGHT: 75 kg DIMENSIONS: IVS: 1.1 LV: 4.2 LVPW: 1.1 LA: 5.4 IVC: 2.6 Left atrial volume index: 57 The study is of good technical quality. The patient is in atrial fibrillation with controlled rate. Left ventricle is of normal size. There is normal left ventricular systolic function, I estimate left ventricular ejection fraction (LVEF) around 70-75%. No distinct segmental wall motion abnormalities are appreciated. Right ventricle is severely dilated and globally hypokinetic. There is aortic bioprosthesis. It was poorly visualized and I cannot comment on its structure. It does appear heavily sclerotic based on limited views. There are also very prominent degenerative abnormalities of mitral valve with mitral annular calcifications. Tricuspid valve appears grossly normal even though it was poorly seen. Pulmonic valve was not visualized. No pericardial effusion is noted. Inferior vena cava is dilated and there is only minimal collapse with respiration indicative of very high central venous pressure. Aortic root, aortic arch and visualized segment of abdominal aorta appear normal. Doppler interrogation of aortic valve reveals no insufficiency and no significant stenosis. There is approximately [id number] mitral insufficiency related to degenerative abnormalities of the valve. There is severe tricuspid insufficiency with central TR jet. Calculated pulmonary artery pressure is around 55 mmHg, which corresponds to upper limits of moderate pulmonary hypertension. Evaluation of diastolic function is inconclusive due to underlying atrial fibrillation. CONCLUSION 1. Study is of good technical quality, the patient is in atrial fibrillation with controlled rate. 2. Normal left ventricle (LV) size with hyperdynamic LV systolic function. 3. Dilated globally hypokinetic right ventricle. 4. Severe biatrial enlargement (right atrium is much larger than left). 5. Normal function of aortic bioprosthesis. 6. Upgi-at-roafanki mitral insufficiency. 7. Severe tricuspid insufficiency. 8. Elevated central venous pressure. COMMENT Subacute bacterial endocarditis (SBE) prophylaxis is recommended. MTDD
[2019-08-29] MEDS: SIMVASTATIN 40 MG TAB PO SCH (20:52)
[2019-08-30] VITALS (15 sets, daily range): BP systolic 126–158; BP diastolic 62–85; O2SAT 95–100
[2019-08-30] MEDS: PIPERACILLIN/TAZOBACTAM SOD 3.375 GM in D5W MINI-BAG PLUS 50 ML IV SCH ×2 (00:15→06:14)
[2019-08-30] MEDS: ACETAMINOPHEN TAB 650MG DOSE (2X325MG) PO PRN ×3 (01:27→14:46)
[2019-08-30 06:13] LABS: INR 1.24; PROTHROMBIN TIME 15.3 SECONDS (11.8-14.0)
[2019-08-30] MEDS: SLF 3 ML SYR IV SCH ×3 (06:14→20:35)
[2019-08-30 07:43] LABS: BASO % 0.5 % (0.0-1.0); EOS # 0.1 10^3/uL (0.0-0.5); EOS % 1.1 % (0.0-3.0); HEMATOCRIT 39.6 % (42.0-52.0); HEMOGLOBIN 12.7 g/dl (13.5-17.5); LYMPH # 0.9 10^3/uL (1.5-5.0); LYMPH % 10.9 % (24.0-44.0); MEAN CORPUSCULAR HEMOGLOBIN 30.9 pg (27.0-33.0); MEAN CORPUSCULAR HGB CONC 32.1 g/dl (32.0-36.5); MEAN CORPUSCULAR VOLUME 96.4 fl (80.0-96.0); MONO # 0.7 10^3/uL (0.0-0.8); MONO % 8.4 % (0.0-5.0); NEUTROPHILS # 6.4 10^3/uL (1.5-8.5); NEUTROPHILS % 77.8 % (36.0-66.0); PLATELET COUNT, AUTOMATED 175 10^3/uL (150-450); RED BLOOD COUNT 4.11 10^6/uL (4.30-6.10); WHITE BLOOD COUNT 8.2 10^3/uL (4.0-10.0)
[2019-08-30 08:14] LABS: ALBUMIN 2.5 GM/DL (3.2-5.2); ALT/SGPT 19 U/L (12-78); BILIRUBIN,TOTAL 0.9 MG/DL (0.2-1.0); BLOOD UREA NITROGEN 43 MG/DL (7-18); CALCIUM LEVEL 8.3 MG/DL (8.8-10.2); CARBON DIOXIDE LEVEL 27 MEQ/L (21-32); CHLORIDE LEVEL 109 MEQ/L (98-107); CREATININE FOR GFR 1.12 MG/DL (0.70-1.30); GLOMERULAR FILTRATION RATE > 60.0 (>35); GLUCOSE, FASTING 97 MG/DL (70-100); POTASSIUM SERUM 4.2 MEQ/L (3.5-5.1); SODIUM LEVEL 140 MEQ/L (136-145); TOTAL PROTEIN 6.2 GM/DL (6.4-8.2)
[2019-08-30] MEDS: TAMSULOSIN 0.4 MG CAP PO SCH (08:20)
[2019-08-30] MEDS: FUROSEMIDE 20 MG TAB PO SCH (08:20)
[2019-08-30] MEDS: FINASTERIDE 5 MG TAB PO SCH (08:20)
[2019-08-30] MEDS: oxyBUTYnin *DITROPAN XL* 5 MG TABCR PO SCH (08:20)
[2019-08-30] MEDS: DOCUSATE SODIUM 100 MG CAP PO SCH ×2 (08:20→20:35)
--- NOTE | 2019-08-30 08:22 | REP ---
ULTRASOUND-GUIDED RIGHT THORACENTESIS The procedure was performed under the direct supervision of Dr. Grimes. The risks and benefits of the procedure were explained to the patient and informed consent was obtained. The right pleural effusion was localized using ultrasound guidance. The skin was prepped and draped in a sterile fashion. 1% lidocaine was used as a local anesthetic. An 8-English multi side-hole catheter was inserted using trocar technique. 1710 ml of yellow fluid was withdrawn and discarded. The patient tolerated the procedure well and there were no immediate complications. After the appropriate amount of monitored convalescence the patient was discharged from the department. Electronically Signed by BERKLEY Mac 08/29/2019 05:28 P Electronically Signed by Davis Grimes MD 08/30/2019 08:13 A
[2019-08-30] MEDS: lisinopriL 10 MG TAB PO SCH (08:24)
[2019-08-30] MEDS: METOPROLOL TART 25 MG TABLET PO SCH ×2 (08:25→20:34)
--- NOTE | 2019-08-30 08:38 | REP ---
CHEST X-RAY: Two views. HISTORY: Chest pain. Followup pneumothorax. Comparison chest x-rays are from August 29, 2019 at 3:19 p.m. and August 29, 2019 at 7:12 p.m. FINDINGS: The previously noted right-sided pneumothorax is again seen. This has decreased in size slightly. There is an air-fluid level in the pleural space at the right base posteriorly. The amount of pleural fluid appears unchanged. No infiltrate is seen. Cardiomediastinal silhouette is unchanged. The patient is status post aortic valve replacement. IMPRESSION: Small right-sided hydropneumothorax, the pneumothorax component has decreased slightly since last night's radiograph. Electronically Signed by Davis Grimes MD 08/30/2019 08:50 A
--- NOTE | 2019-08-30 09:39 | IPNPDOC ---
Subjective Date Seen The patient was seen on 08/30/19. Subjective Chief Complaint/HPI Patient feels better, in no apparent distress was seen by Dr. Oates this morning for small pneumothorax secondary to thoracentesis pt is afebrile, asymptomatic, in no apparent distress General: Denies: ROS Unobtainable, Chills, Night Sweats, Fatigue, Malaise, Normal Appetite, Other Symptoms Skin: Denies: Rash, Lesions, Jaundice, Bruising, Itching, Dry, Breakdown, Nail Changes, Other Pulmonary: Denies: Dyspnea, Cough, Pleuritic Chest Pain, Other Symptoms Cardiovascular: Denies: Chest Pain, Palpitations, Orthopnea, Paroxysmal Noc. Dyspnea, Edema, Lt Headedness, Other Symptoms Gastrointestinal: Denies: Nausea, Vomiting, Abdominal Pain, Diarrhea, Constipation, Melena, Hematochezia, Other Symptoms Endocrine: Denies: Polydipsia, Polyphagia, Polyuria, Heat Intolerance, Cold Intolerance, Other Endocrine Sx Neurological: Denies: Weakness, Numbness, Incoordination, Change in speech, Confusion, Seizures, Other Symptoms Objective Physical Examination ENT Exam: Positive: Atraumatic, Mucous membr. moist/pink Neck Exam: Positive: Supple, JVD Chest Exam: Positive: Clear to auscultation, Normal air movement Heart Exam: Positive: Rate Normal, Normal S1, Normal S2 Abdomen Exam: Positive: Normal bowel sounds, Soft, Tenderness (. No tenderness, no positive Ordoñez's punch on right side) Extremity Exam: Positive: Normal pulses Skin Exam: Positive: Nl turgor and temperature Neuro Exam: Positive: Strength at 5/5 X4 ext, Cranial Nerves 3-12 NL Assessment /Plan Problems (1) Bladder calculus Status: Acute Problem Text: Large bladder calculus found on renal sonogram. Patient was seen by Dr. Fuller and I have a extensive discussion with Dr. Fuller. Once the thoracentesis is done, patient can be discharged home on his oral anticoagulants and Dr. Fuller reschedule intermittent OR as an outpatient for cystoscopy and possible left laser lithotripsy. Patient is clinically stable after thoracentesis is probably be discharged home on all his current meds a Will DC antibiotics as patient is a afebrile and asymptomatic and is refusing to take any more antibiotics (2) Pleural effusion, right Status: Acute Problem Text: Status post thoracentesis with removal of about 3 L of pleural fluid from right side Patient developed small pneumothorax after the procedure. Hence has been observed with repeated chest x-rays Dr. Oates from thoracic surgery was contacted and he is on the case already (3) HTN (hypertension) Status: Chronic Problem Specific Plan: Consult Specialist Problem Text: Continue all present home meds (4) Hyperlipemia Status: Chronic Problem Text: Continue home meds (5) Atrial fibrillation Status: Chronic Problem Text: Rate is under well control, Xarelto is on hold. We'll continue all home meds (6) Hematuria Status: Acute Problem Text: Most likely secondary to bladder calculus and anticoagulation Patient is H&H stable with hemoglobin of 12.3 and hematocrit 37.1 Patient has no more hematuria. Only one small clot was noted. Otherwise, he is asymptomatic at present and will probably start him back on Xarelto once his pneumothorax is resolved and is ready to be discharged (7) Pneumothorax Problem Text: Patient developed a small pneumothorax of thoracentesis. Patient had a repeat chest x-ray done last night which shows no increase in pneumothorax, but slight increase in right pleural effusion Dr. Oates was called twice yesterday and recommended observation only, he has seen the patient this morning, but official note is awaited Will continue telemetry, repeat chest x-ray today and tomorrow and once cleared by Dr. Oates. They will be discharged home Plan/VTE VTE Prophylaxis Ordered?: Yes VS, I&O, 24H, Fishbone Vital Signs/I&O Vital Signs Date Time Temp Pulse Resp B/P (MAP) Pulse Ox O2 Delivery O2 Flow Rate FiO2 08/30/19 08:25 93 08/30/19 08:24 158/85 08/30/19 08:00 97.3 18 100 Room Air 08/30/19 06:00 2.0 I&O- Last 24 Hours up to 6 AM 08/30/19 06:00 Intake Total 540 ml Output Total 320 ml Balance 220 ml Laboratory Data 24H LABS Laboratory Tests 2 08/30/19 05:42: Prothrombin Time 15.3H, Prothromb Time International Ratio 1.24 08/30/19 06:24: Immature Granulocyte % (Auto) 1.3, Neutrophils (%) (Auto) 77.8H, Lymphocytes (%) (Auto) 10.9L, Monocytes (%) (Auto) 8.4H, Eosinophils (%) (Auto) 1.1, Basophils (%) (Auto) 0.5, Neutrophils # (Auto) 6.4, Lymphocytes # (Auto) 0.9L, Monocytes # (Auto) 0.7, Eosinophils # (Auto) 0.1, Basophils # (Auto) 0.0, Nucleated Red Blood Cells % (auto) 0.0 08/30/19 06:42: Anion Gap 4L, Glomerular Filtration Rate > 60.0, Calcium Level 8.3L, Total Bi lirubin 0.9, Aspartate Amino Transf (AST/SGOT) 18, Alanine Aminotransferase (ALT/SGPT) 19, Alkaline Phosphatase 65, Total Protein 6.2L, Albumin 2.5L, Albumin/Globulin Ratio 0.68L CBC/BMP Laboratory Tests 08/30/19 06:24 08/30/19 06:42 Microbiology Microbiology 08/28/19 Urine Culture - Final, Complete 08/28/19 Blood Culture - Preliminary, Resulted No growth after 24 hours . All specim... 08/28/19 Blood Culture - Preliminary, Resulted No growth after 24 hours . All specim... 08/27/19 Urine Culture - Final, Complete KIRILL WYNN MD Aug 30, 2019 09:39
--- NOTE | 2019-08-30 19:57 | ECGEPIP ---
[facility] Test Date: 2019-08-28 Pat Name: NORIS WYATT Department: Room: [place] [address] Gender: Male [employer]: [id number] : [id number] Requested By: KIRILL WYNN Order Number: [id number] Reading MD: Parisa Eller Measurements Intervals [place] Rate: 82 P: WI: 0 QRS: 111 QRSD: 132 T: 10 QT: 375 QTc: 438 Interpretive Statements ATRIAL FIBRILLATION INTRAVENTRICULAR CONDUCTION DELAY POSSIBLE RIGHT VENTRICULAR HYPERTROPHY SIMILAR TO 08/27/2019 Electronically Signed on 08-30-2019 19:56:55 EST by Parisa Eller
[2019-08-30] MEDS: SIMVASTATIN 40 MG TAB PO SCH (20:34)
--- NOTE | 2019-08-30 21:35 | CR ---
DATE OF CONSULTATION: 08/30/2019 Patient seen at the request of Dr. Grimes and the hospital service for a hydropneumothorax after a drainage procedure in x-ray. HISTORY OF PRESENT ILLNESS: Patient is an 84-year-old white male who presented to this hospital with a ureteral stone. He had some hydronephrosis. He has known coronary artery disease, status post coronary artery bypass grafting procedure and aortic valve replacement, bilateral carotid stenoses and history of embolic stroke in 2010, hypertension, chronic atrial fibrillation, and benign prostatic hypertrophy. He was found to have a pleural effusion which was drained by x-ray yesterday. 1700 mL of yellow fluid was drawn off. His postprocedure chest x-ray showed the lower lobe on the right side from the chest wall with a small air fluid level and with apical pneumothorax. When Dr. Grimes asked me to see him I thought that this had represented an entrapped lung as there was no subcutaneous emphysema. Chest x-ray later on that evening showed a slight increase in the airspaces with the air fluid level, but not significantly so. Today's chest x-ray shows a diminution of the airspace with reaccumulation of the pleural fluid with an air fluid level. This is his first thoracentesis. Today he does not complain of shortness of breath. He has not been out and around walking in the [place] yet however. There is no cough and no sputum production and he has not had any chills. His temperature charts do not show a fever for the last 48 hours but he did have a fever of 101 on 08/28/2019. There is no dysphagia and he states that he is eating well. PHYSICAL EXAMINATION: His lungs show equal breath sounds on either side without wheezes, rhonchi or rales. Percussion note is full to the diaphragm. Extremities show no pretibial edema, no calf tenderness. Neck is supple. There is no jugular venous distention. No subcutaneous emphysema. Trachea is midline. Mouth shows his mucous membranes to be pink and moist. Lips and commissures without lesions. There is no thrush. Eyes show his pupils equal and reactive. Extraocular muscles intact. Sclera nonicteric. Neuro shows II-XII intact. Gross motor and gross sensation intact. Gait is not tested. Psychiatric shows him to be awake, alert and oriented times three with appropriate mood, affect and conversational. Cardiac exam is without murmurs, clips, gallops or rubs. I cannot feel his point of maximal impulse (PMI). S1 and S2 are normal. Abdomen is soft, nontender. Bowel sounds are positive. There is no costovertebral angle (CVA) tenderness. His chest x-ray are described above that I have reviewed. IMPRESSION: 1. Pleural effusion, right side. 2. Coronary artery disease. 3. Status post aortic valve replacement. 4. Hematuria. 5. Hypertension. 6. Atrial fibrillation. PLAN AND DISCUSSION: The fluid was not sent for analysis. Considering the description of the fluid, it is probably transudative. It has probably been chronic as further review of the medical record shows that he had thoracentesis a year ago. I suspect that his lung is entrapped with fibrous tissue and that he is going to reaccumulate fluid. The fluid he accumulates is going to fill the space where his lung is entrapped. I can only conjecture that his fluid is secondary to a cardiac origin. He has essentially normal renal function with a BUN and creatinine of 43 and 1.12. I do not think this will keep him from going home. I suggest he be followed by cardiology and his primary care physician with serial chest x-rays. If he is not symptomatic from his pleural effusion I would not drain it as it is only going to come back and fill the empty space. He certainly does not need a PleurX catheter at this point in time.
[2019-08-31] VITALS: BP 136/90
[2019-08-31 04:00] VITALS: BP 135/88
[2019-08-31 05:29] LABS: BASO % 0.5 % (0.0-1.0); EOS # 0.2 10^3/uL (0.0-0.5); EOS % 2.1 % (0.0-3.0); HEMATOCRIT 39.3 % (42.0-52.0); HEMOGLOBIN 12.9 g/dl (13.5-17.5); LYMPH % 12.2 % (24.0-44.0); MEAN CORPUSCULAR HEMOGLOBIN 31.2 pg (27.0-33.0); MEAN CORPUSCULAR HGB CONC 32.8 g/dl (32.0-36.5); MEAN CORPUSCULAR VOLUME 95.2 fl (80.0-96.0); MONO # 0.7 10^3/uL (0.0-0.8); MONO % 8.5 % (0.0-5.0); NEUTROPHILS # 5.8 10^3/uL (1.5-8.5); NEUTROPHILS % 74.8 % (36.0-66.0); PLATELET COUNT, AUTOMATED 190 10^3/uL (150-450); RED BLOOD COUNT 4.13 10^6/uL (4.30-6.10); WHITE BLOOD COUNT 7.8 10^3/uL (4.0-10.0)
[2019-08-31 05:40] LABS: INR 1.33; PROTHROMBIN TIME 16.2 SECONDS (11.8-14.0)
[2019-08-31 05:58] LABS: ALBUMIN 2.7 GM/DL (3.2-5.2); ALT/SGPT 25 U/L (12-78); BILIRUBIN,TOTAL 0.8 MG/DL (0.2-1.0); BLOOD UREA NITROGEN 35 MG/DL (7-18); CALCIUM LEVEL 8.4 MG/DL (8.8-10.2); CARBON DIOXIDE LEVEL 30 MEQ/L (21-32); CHLORIDE LEVEL 108 MEQ/L (98-107); CREATININE FOR GFR 0.93 MG/DL (0.70-1.30); GLOMERULAR FILTRATION RATE > 60.0 (>35); GLUCOSE, FASTING 115 MG/DL (70-100); POTASSIUM SERUM 4.4 MEQ/L (3.5-5.1); SODIUM LEVEL 141 MEQ/L (136-145); TOTAL PROTEIN 5.9 GM/DL (6.4-8.2)
[2019-08-31] MEDS: SLF 3 ML SYR IV SCH ×2 (06:52→13:11)
[2019-08-31 08:00] VITALS: BP 138/84
[2019-08-31] MEDS: lisinopriL 10 MG TAB PO SCH (08:27)
[2019-08-31 08:28] VITALS: BP 138/84
[2019-08-31] MEDS: METOPROLOL TART 25 MG TABLET PO SCH (08:28)
[2019-08-31] MEDS: oxyBUTYnin *DITROPAN XL* 5 MG TABCR PO SCH (08:28)
[2019-08-31] MEDS: FUROSEMIDE 20 MG TAB PO SCH (08:28)
[2019-08-31] MEDS: TAMSULOSIN 0.4 MG CAP PO SCH (08:28)
[2019-08-31] MEDS: DOCUSATE SODIUM 100 MG CAP PO SCH (08:29)
[2019-08-31] MEDS: FINASTERIDE 5 MG TAB PO SCH (08:29)
--- NOTE | 2019-08-31 08:32 | REP ---
Clinical: Follow up pneumothorax. Technique: PA and lateral. Comparison: 08/30/2019. Findings: Right hydropneumothorax unchanged. Stable cardiomegaly. No new acute process identified. Evidence of prior sternotomy and CABG. Impression: 1. Stable right hydropneumothorax. 2. No new acute process. Electronically Signed by Guilherme Juarez MD 08/31/2019 08:24 A
[2019-08-31] MEDS ORDERED: RIVAROXABAN 20 MG TAB (XARELTO) PO ONE (09:00)
--- NOTE | 2019-08-31 11:27 | IPNPDOC ---
Subjective Date Seen The patient was seen on 08/31/19. Subjective Chief Complaint/HPI Patient comfortable in no distress. No shortness of breath, no chest pain, or syncope General: Denies: ROS Unobtainable, Chills, Night Sweats, Fatigue, Malaise, Normal Appetite, Other Symptoms Constitutional: Denies: Chills, Fever, Malaise, Night Sweats, Weakness, Fatigue, Weight Loss, Lethargy, Other Skin: Denies: Rash, Lesions, Jaundice, Bruising, Itching, Dry, Breakdown, Nail Changes, Other Pulmonary: Denies: Dyspnea, Cough, Pleuritic Chest Pain, Other Symptoms Cardiovascular: Denies: Chest Pain, Palpitations, Orthopnea, Paroxysmal Noc. Dyspnea, Edema, Lt Headedness, Other Symptoms Gastrointestinal: Denies: Nausea, Vomiting, Abdominal Pain, Diarrhea, Constipation, Melena, Hematochezia, Other Symptoms Endocrine: Denies: Polydipsia, Polyphagia, Polyuria, Heat Intolerance, Cold In tolerance, Other Endocrine Sx Musculoskeletal: Denies: Neck Pain, Back Pain, Shoulder Pain, Arm Pain, Hand Pain, Leg Pain, Foot Pain, Joint Pain, Muscle Pain, Spasms, Other Symptoms Neurological: Denies: Weakness, Numbness, Incoordination, Change in speech, Confusion, Seizures, Other Symptoms Objective Physical Examination ENT Exam: Positive: Atraumatic, Mucous membr. moist/pink Neck Exam: Positive: Supple, JVD Chest Exam: Positive: Clear to auscultation, Normal air movement Heart Exam: Positive: Rate Normal, Normal S1, Normal S2 Abdomen Exam: Positive: Normal bowel sounds, Soft, Tenderness (. No tenderness, no positive Ordoñez's punch on right side) Extremity Exam: Positive: Normal pulses Skin Exam: Positive: Nl turgor and temperature Neuro Exam: Positive: Strength at 5/5 X4 ext, Cranial Nerves 3-12 NL Assessment /Plan Problems (1) Bladder calculus Status: Acute Problem Text: Large bladder calculus found on renal sonogram. Patient was seen by Dr. Fuller and I have a extensive discussion with Dr. Fuller. pt will continue taking his cephalexin as an outpatient and follow with Dr. Fuller in a week for possible procedure in [place] as outpatient No more bleeding and he will be restarted back on Xarelto (2) Pleural effusion, right Status: Acute Problem Text: Status post thoracentesis with removal of about 3 L of pleural fluid from right side Patient was seen by Dr. Oates. Repeat chest x-ray showed no increase in pneumothorax. Head CT is been cleared by Dr. Oates for discharge home. He will need to follow with his primary care physician for repeat chest x-ray. Patient is completely asymptomatic. No shortness of breath or chest pain. (3) HTN (hypertension) Status: Chronic Problem Specific Plan: Consult Specialist Problem Text: Continue all present home meds (4) Hyperlipemia Status: Chronic Problem Text: Continue home meds (5) Atrial fibrillation Status: Chronic Problem Text: Rate is under well control. Will restart Xarelto today (6) Hematuria Status: Acute Problem Text: . Patient is H&H is stable and the hematuria has resolved Follow with Dr. Fuller as an outpatient (7) Pneumothorax Problem Text: Patient developed small pneumothorax after thoracentesis pt was followed up with Dr. Oates last night I'll repeat 3. Follow-up chest x-ray does not show any increase in pneumothorax Is completely asymptomatic and as per Dr. Oates's recommendation can get repeat chest x-ray with his PCP as an outpatient Patient will be discharged today Plan/VTE VTE Prophylaxis Ordered?: Yes VS, I&O, 24H, Fishbone Vital Signs/I&O Vital Signs Date Time Temp Pulse Resp B/P (MAP) Pulse Ox O2 Delivery O2 Flow Rate FiO2 08/31/19 08:28 98 138/84 08/31/19 08:00 97.7 18 97 Room Air 08/30/19 06:00 2.0 I&O- Last 24 Hours up to 6 AM 08/31/19 06:00 Intake Total 930 ml Output Total 220 ml Balance 710 ml Laboratory Data 24H LABS Laboratory Tests 2 08/31/19 05:18: Immature Granulocyte % (Auto) 1.9, Neutrophils (%) (Auto) 74.8H, Lymphocytes (%) (Auto) 12.2L, Monocytes (%) (Auto) 8.5H, Eosinophils (%) (Auto) 2.1, Basophils (%) (Auto) 0.5, Neutrophils # (Auto) 5.8, Lymphocytes # (Auto) 1.0L, Monocytes # (Auto) 0.7, Eosinophils # (Auto) 0.2, Basophils # (Auto) 0.0, Nucleated Red Blood Cells % (auto) 0.0, Prothrombin Time 16.2H, Prothromb Time International Ratio 1.33, Anion Gap 3L, Glomerular Filtration Rate > 60.0, Calcium Level 8.4L, Total Bilirubin 0.8, Aspartate Amino Transf (AST/SGOT) 21, Alanine Aminotransf erase (ALT/SGPT) 25, Alkaline Phosphatase 70, Total Protein 5.9L, Albumin 2.7L, Albumin/Globulin Ratio 0.84L CBC/BMP Laboratory Tests 08/31/19 05:18 Microbiology Microbiology 08/28/19 Urine Culture - Final, Complete 08/28/19 Blood Culture - Preliminary, Resulted No Growth after 48 hours. All Specime... 08/28/19 Blood Culture - Preliminary, Resulted No Growth after 48 hours. All Specime... 08/27/19 Urine Culture - Final, Complete KIRILL WYNN MD Aug 31, 2019 11:26
--- NOTE | 2019-08-31 11:28 | DS.PDOC ---
Discharge Summary General Date of Admission Aug 27, 2019 at 16:22 Date of Discharge 08/31/19 Discharge Summary PROCEDURES PERFORMED DURING STAY: None. ADMITTING DIAGNOSES: 1. . Hematuria ,right pleural effusion. DISCHARGE DIAGNOSES: 1. , Hematuria, bladder calculus, right pleural effusion, right pneumothorax, hypertension, hyperlipidemia, A. fib. COMPLICATIONS/CHIEF COMPLAINT: Hematuria ,Pleural Effusion Rt. HISTORY OF PRESENT ILLNESS: This is a very pleasant 84 years old white male with past medical history of coronary artery disease status post aortic valve replacement with bio prosthetic valve, possible CABG, but he is not sure hypertension, hyperlipidemia, atrial fibrillation, BPH, history of right pleural effusion wasn't his usual state of health since last 2-3 days when he noticed large amount of blood in the urine and he was seen at an urgent care where he was prescribed Keflex for UTI. Patient this morning, developed waves of right flank pain which is dull, intermittent, nonradiating, associated with hematuria, not relieved with any pain meds. No chest pain, no shortness of breath. Patient is being admitted with the diagnosis of hematuria and large right pleural effusion. HOSPITAL COURSE: (1) Bladder calculus Large bladder calculus found on renal sonogram. Patient was seen by Dr. Fuller and I have a extensive discussion with Dr. Fuller. pt will continue taking his cephalexin as an outpatient and follow with Dr. Fuller in a week for possible procedure in [place] as outpatient No more bleeding and he will be restarted back on Xarelto (2) Pleural effusion, right Status post thoracentesis with removal of about 3 L of pleural fluid from right side Patient was seen by Dr. Oates. Repeat chest x-ray showed no increase in pneumothorax. Head CT is been cleared by Dr. Oates for discharge home. He will need to follow with his primary care physician for repeat chest x-ray. Patient is completely asymptomatic. No shortness of breath or chest pain. (3) HTN (hypertension) Continue all present home meds (4) Hyperlipemia Status: Chronic Problem Text: Continue home meds (5) Atrial fibrillation Rate is under well control. Will restart Xarelto today (6) Hematuria Patient is H&H is stable and the hematuria has resolved Follow with Dr. Fuller as an outpatient (9) Pneumothorax. Patient developed small pneumothorax after thoracentesis pt was followed up with Dr. Oates last night I'll repeat 3. Follow-up chest x-ray does not show any increase in pneumothorax Is completely asymptomatic and as per Dr. Oates's recommendation can get repeat chest x-ray with his PCP as an outpatient Patient will be discharged home today . DISCHARGE MEDICATIONS: Please see below. ALLERGIES: Please see below. PHYSICAL EXAMINATION ON DISCHARGE: VITAL SIGNS: Please see below. GENERAL: Within normal limits HEENT: TAYLA muscle intact NECK: Supple, no JVD, no lymphadenopathy CARDIOVASCULAR EXAMINATION: S1, S2, regular RESPIRATORY EXAMINATION: Clear to A&P ABDOMINAL EXAMINATION: Benign EXTREMITIES: No clubbing, cyanosis, edema SKIN: Within normal limits NEUROLOGICAL EXAMINATION: . No focal motor sensory deficit PSYCHIATRIC EXAMINATION: Normal LABORATORY DATA: Please see below. IMAGING: Abdominal sono: Bladder calculus PROGNOSIS: Good ACTIVITY: As tolerated. DIET: As tolerated DISCHARGE PLAN: Follow with PCP and Dr. Fuller as an outpatient in one week DISPOSITION: . Home DISCHARGE INSTRUCTIONS: 1. As per discharge instructions. ITEMS TO FOLLOWUP ON ON OUTPATIENT: 1. Follow-up chest x-ray with PCP as soon as possible and follow with Dr. Fuller in one week. DISCHARGE CONDITION: Stable. Time is spent on the discharge is 41 minutes. Vital Signs/I&Os Vital Signs Date Time Temp Pulse Resp B/P (MAP) Pulse Ox O2 Delivery O2 Flow Rate FiO2 08/31/19 08:28 98 138/84 08/31/19 08:00 97.7 18 97 Room Air 08/30/19 06:00 2.0 I&O- Last 24 Hours up to 6 AM 08/31/19 06:00 Intake Total 930 ml Output Total 220 ml Balance 710 ml Laboratory Data Labs 24H Laboratory Tests 2 08/31/19 05:18: Immature Granulocyte % (Auto) 1.9, Neutrophils (%) (Auto) 74.8H, Lymphocytes (%) (Auto) 12.2L, Monocytes (%) (Auto) 8.5H, Eosinophils (%) (Auto) 2.1, Basophils (%) (Auto) 0.5, Neutrophils # (Auto) 5.8, Lymphocytes # (Auto) 1.0L, Monocytes # (Auto) 0.7, Eosinophils # (Auto) 0.2, Basophils # (Auto) 0.0, Nucleated Red Blood Cells % (auto) 0.0, Prothrombin Time 16.2H, Prothromb Time International Ratio 1.33, Anion Gap 3L, Glomerular Filtration Rate > 60.0, Calcium Level 8.4L, Total Bilirubin 0.8, Aspartate Amino Transf (AST/SGOT) 21, Alanine Aminotransferase (ALT/SGPT) 25, Alkaline Phosphatase 70, Total Protein 5.9L, Albumin 2.7L, Albumin/Globulin Ratio 0.84L CBC/BMP Laboratory Tests 08/31/19 05:18 Microbiology Microbiology 08/28/19 Urine Culture - Final, Complete 08/28/19 Blood Culture - Preliminary, Resulted No Growth after 48 hours. All Specime... 08/28/19 Blood Culture - Preliminary, Resulted No Growth after 48 hours. All Specime... 08/27/19 Urine Culture - Final, Complete Discharge Medications Scheduled Cephalexin (Cephalexin) 500 Mg Capsule, 500 MG PO TID, (Reported) Finasteride (Finasteride) 5 Mg Tablet, 5 MG PO DAILY, (Reported) Fish Oil/Dha/Epa (Fish Oil 1,200 mg Fish Oil) 1 Each Capsule, 1 CAP PO BID, (Reported) Furosemide (Furosemide) 20 Mg Tablet, 20 MG PO DAILY, (Reported) Lisinopril (Lisinopril) 30 Mg Tablet, 30 MG PO DAILY, (Reported) Lovastatin (Lovastatin) 40 Mg Tablet, 80 MG PO QHS, (Reported) Metoprolol Tartrate (Metoprolol Tartrate) 25 Mg Tablet, 25 MG PO BID, (Reported) PCP INSTRUCTED PT THAT THEY MAY TAKE A THIRD TABLET DURING THE DAY NEEDED FOR HEART RATE AND HIGH BLOOD PRESSURE Oxybutynin Chloride (Ditropan Xl) 5 Mg Tab.er.24, 5 MG PO DAILY, (Reported) Rivaroxaban (Xarelto) 20 Mg Tablet, 20 MG PO QPM, (Reported) WITH DINNER Tamsulosin Hcl (Tamsulosin HCl) 0.4 Mg Capsule, 0.4 MG PO DAILY, (Reported) Ubidecarenone (Co Q-10) 200 Mg Capsule, 200 MG PO DAILY, (Reported) Allergies Coded Allergies: No Known Allergies (Unverified , 08/27/19) KIRILL WYNN MD Aug 31, 2019 11:28
== END 2019-08-31 13:25 | disposition home or self-care (01) | DRG 813 ==
LOC: M ED 11:14 → M ED INP 16:22 → ENRESERVDT 16:35 → ENRESERVTM 16:35 → M PCU 18:02
PROVIDERS: ADMIT Internal Medicine; ATTEND Internal Medicine
PROC: 0W993ZZ Drainage of Right Pleural Cavity, Percutaneous Approach (ICD-10-PCS; principal; 2019-08-29 14:00)
DX: D68.32 Hemorrhagic disorder due to extrinsic circulating anticoagulants (principal); J90 Pleural effusion, not elsewhere classified; I48.20 Chronic atrial fibrillation, unspecified; J95.811 Postprocedural pneumothorax; R31.9 Hematuria, unspecified; N21.0 Calculus in bladder; I10 Essential (primary) hypertension; E78.5 Hyperlipidemia, unspecified; I25.10 Atherosclerotic heart disease of native coronary artery without angina pectoris; Z95.2 Presence of prosthetic heart valve; N40.0 Benign prostatic hyperplasia without lower urinary tract symptoms; Z79.899 Other long term (current) drug therapy; Z96.642 Presence of left artificial hip joint; Z86.73 Personal history of transient ischemic attack (TIA), and cerebral infarction without residual deficits; Z96.641 Presence of right artificial hip joint

== ENCOUNTER 2019-12-04 15:26 | Inpatient (IN) | payer MEDICARE ==
[~2019-12-04] VITALS: Ht 170.2 cm; Wt 76.9 kg
[~2019-12-04 15:26] MED LIST changes: +ARTH650T17 PO; +CEPH500C PO; +CO Q1CAP2 PO; +CO Q200C10 PO; +DITR5TAB PO; +FINA5TAB2 PO; +FURO20TA2 PO; +KP F1200 PO; +LISI30TA4 PO; +LOVA40TA PO; +METO25TA4 PO; +MULTCAP PO; +TAMS1CAP17 PO; +XARE20TA PO
[2019-12-04 16:20] LABS: BASO % 0.2 % (0.0-1.0); HEMATOCRIT 41.9 % (42.0-52.0); HEMOGLOBIN 14.3 g/dl (13.5-17.5); LYMPH # 0.2 10^3/uL (1.5-5.0); LYMPH % 1.8 % (24.0-44.0); MEAN CORPUSCULAR HEMOGLOBIN 31.8 pg (27.0-33.0); MEAN CORPUSCULAR HGB CONC 34.1 g/dl (32.0-36.5); MEAN CORPUSCULAR VOLUME 93.3 fl (80.0-96.0); MONO # 0.9 10^3/uL (0.0-0.8); MONO % 7.3 % (0.0-5.0); NEUTROPHILS # 11.1 10^3/uL (1.5-8.5); NEUTROPHILS % 89.9 % (36.0-66.0); PLATELET COUNT, AUTOMATED 147 10^3/uL (150-450); RED BLOOD COUNT 4.49 10^6/uL (4.30-6.10); WHITE BLOOD COUNT 12.3 10^3/uL (4.0-10.0)
[2019-12-04] MEDS ORDERED: ONDANSETRON 4MG/2ML VIAL IV ONE (16:30)
[2019-12-04] MEDS ORDERED: MORPHINE 4 MG/ML 1ML VIAL/SYRINGE (J2270) IV ONE (16:30)
[2019-12-04] MEDS: GASTROGRAFIN SOLUTION 30ML PO SCH ×2 (16:54→17:25)
[2019-12-04 17:11] LABS: ALBUMIN 3.1 GM/DL (3.2-5.2); ALT/SGPT 37 U/L (12-78); BILIRUBIN,DIRECT 0.6 MG/DL (0.0-0.2); BILIRUBIN,TOTAL 4.2 MG/DL (0.2-1.0); BLOOD UREA NITROGEN 34 MG/DL (7-18); CALCIUM LEVEL 8.7 MG/DL (8.8-10.2); CARBON DIOXIDE LEVEL 25 MEQ/L (21-32); CHLORIDE LEVEL 94 MEQ/L (98-107); CK-MB VALUE MASS 5.8 NG/ML (<3.6); CPK CREATINE PHOSPHOKINASE 115 U/L (39-308); CREATININE FOR GFR 0.98 MG/DL (0.70-1.30); GLOMERULAR FILTRATION RATE > 60.0 (>35); GLUCOSE, FASTING 143 MG/DL (70-100); LIPASE 56 U/L (73-393); MB/CK RELATIVE INDEX 5.04 (< OR =4); POTASSIUM SERUM 3.7 MEQ/L (3.5-5.1); SODIUM LEVEL 129 MEQ/L (136-145); TOTAL PROTEIN 6.9 GM/DL (6.4-8.2); TROPONIN I 0.02 NG/ML (< 0.10)
[2019-12-04] MEDS ORDERED: ISOVUE-370 76% 100ML VIAL As Ordered ONE (17:23)
--- NOTE | 2019-12-04 18:46 | REPVR ---
PROCEDURE INFORMATION: Exam: CT Abdomen And Pelvis With Contrast Exam date and time: 12/04/2019 6:16 PM Age: 84 years old Clinical indication: Abdominal pain; Generalized; Additional info: Gen abd pain, distention TECHNIQUE: Imaging protocol: Computed tomography of the abdomen and pelvis with intravenous contrast. Radiation optimization: All CT scans at this facility use at least one of these dose optimization techniques: automated exposure control; mA and/or kV adjustment per patient size (includes targeted exams where dose is matched to clinical indication); or iterative reconstruction. Contrast material: ISOVUE 370; Contrast volume: 100 ml; Contrast route: IV; COMPARISON: CT ABD PELVIS W/O CONTRAST 08/27/2019 12:52 PM FINDINGS: Lower thorax: Partially visualized moderate to large right pleural effusion. Coronary artery calcifications. Liver: Unremarkable. Gallbladder and bile ducts: Hydropic gallbladder. Possible gallbladder wall thickening. Pericholecystic fat stranding and fluid. Cholelithiasis. Pancreas: Unremarkable. No ductal dilation. Spleen: Unremarkable. Adrenals: Unremarkable. Kidneys and ureters: Punctate nonobstructive caliceal calculi in the kidneys. No hydronephrosis. Stomach and bowel: Scattered colonic diverticulosis without evidence of diverticulitis. Small bowel loops are unremarkable. Appendix: No evidence of appendicitis. Intraperitoneal space: Trace degree of nonspecific free fluid in the pelvis. Vasculature: Atherosclerotic calcifications of the aorta and major branches. Lymph nodes: No enlarged lymph nodes. Bladder: 2.1 cm stellate urinary bladder stone. Reproductive: Unremarkable as visualized. Bones/joints: Total left hip arthroplasty. Multilevel degenerative changes of the visualized spine. Chronic bilateral L5 spondylolysis. Grade 1 anterolisthesis of L5 on S1. No acute osseous lesion or fracture. Soft tissues: Unremarkable. IMPRESSION: 1. Findings concerning for acute cholecystitis in the setting of cholelithiasis. Recommend GI consultation and correlation with LFTs. 2. Partially visualized moderate to large right pleural effusion. 3. 2.1 cm stellate urinary bladder stone. 4. Other findings, as above. Electronically signed by: Castillo Ballard On 12/04/2019 18:46:14 PM
[2019-12-04] MEDS ORDERED: PIPERACILLIN/TAZOBACTAM SOD 4.5 GM in D5W MINI-BAG PLUS 50 ML IV ONE (19:00)
[2019-12-04] MEDS ORDERED: ONDANSETRON 4MG/2ML VIAL IV PRN (20:30)
[2019-12-04] MEDS ORDERED: LABETALOL 100MG/20ML VIAL IV SCH (21:00)
[2019-12-04] MEDS ORDERED: METO25TA4 PO (21:04)
[2019-12-04] MEDS ORDERED: OXYB5TAB10 PO (21:04)
[2019-12-04 21:28] VITALS: BP 164/64
[2019-12-04] MEDS: D5W/0.9% SODIUM CHLORIDE 1,000 ML IV SCH (22:13)
[2019-12-05] VITALS (7 sets, daily range): BP systolic 122–168; BP diastolic 68–98
[2019-12-05] MEDS: PIPERACILLIN/TAZOBACTAM SOD 3.375 GM in D5W MINI-BAG PLUS 50 ML IV SCH ×4 (02:00→20:25)
--- NOTE | 2019-12-05 03:48 | HPEPDOC ---
[facility] Medical History & Physical Date of Admission December 04, 2019 Date of Service: December 04, 2019 Attending Physician: LORENA VIVEROS MD History and Physical CHIEF COMPLAINT: Abdominal pain HISTORY OF PRESENT ILLNESS: 84 years old man with CAD s/p CABG?, s/p AVR with bio prosthetic valve, hypertension, hyperlipidemia, chronic atrial fibrillation, BPH and chronic right pleural effusion who presented to the ED reporting 3 days of abdominal pain, nausea, emesis, bloating and distention. He reports having eaten well with his family on mother's day but had abdominal pain since that dinner that has been waxing and waning. Today the pain was so severe with associated nausea and nonbloody emesis such that his and daughter decided that he should come into the hospital. In the ED, he was hemodynamically stable and afebrile and studies showed leukocytosis to 12.3, stable non ischemic EKG, negative trops, lipase and LFTs wnl and CT A/P revealed cholelithiasis with associated gall bladder wall thickening and fat stranding c/w cholecystitis, as well as a bladder stone (2.1 cm), punctate non-obstructing kidney stones with no hydro and his previously noted large R pleural effusion (recently drained in 08/2019). He was started on empiric zosyn, made NPO, surgery was consulted (Dr. Castellanos) and he suggested holding his xarelto, continuing antibiotics, NPO status and consultation with IR in the morning for cholecystostomy until inflammation improves. On further evaluation his abdomen was distended, hypoactive and on discussion with Dr. Castellanos decided to place an NGT for a developing ileus. He is now being admitted to medicine. Past Medical History -chronic A. fib -CAD -Hypertension -Hyperlipidemia -BPH -History of kidney stones Surgical History -Aortic valve replacement -possible history of CABG, unsure -Thoracenteses -Left hip replacement -Carpal tunnel syndrome release on left side Family History -No pertinent family hx Social History -None smoker, rare alcohol, no illicit drugs Review of Systems Constitutional: Denies: Chills, Fever, Malaise, Night Sweats, Weakness, Fatigue, Weight Loss, Lethargy, Other Eyes: Denies: Pain, Vision change, Conjunctivae inflammation, Eyelid inflammation, Redness, Other ENT: Denies: Head Aches, Ear Pain, Dysphagia, Sinus Congestion, Post Nasal Drip, Sore Throat, Epistaxis, Other Symptoms Skin: Denies: Rash, Lesions, Jaundice, Bruising, Itching, Dry, Breakdown, Nail Changes, Other Pulmonary: Denies: Dyspnea, Cough, Pleuritic Chest Pain, Other Symptoms Gastrointestinal: Reports: diffuse abdominal pain worst at RUQ, increased abdominal distention with girth, nausea, emesis, with no diarrhea. Denies bloody stool or emesis Genitourinary: No noted hematuria or retention symptoms at this time. No dysuria Hematologic: Denies: Bruising, Bleeding Excessively, Petecchia, Purpura, Enlarged Lymph Nodes, Other Hematologic Endocrine: Denies: Polydipsia, Polyphagia, Polyuria, Heat Intolerance, Cold Intolerance, Other Endocrine Sx Musculoskeletal: Denies: Neck Pain, Back Pain, Shoulder Pain, Arm Pain, Hand Pain, Leg Pain, Foot Pain, Joint Pain, Muscle Pain, Spasms, Other Symptoms Neurological: Denies: Weakness, Numbness, Incoordination, Change in speech, Confusion, Seizures, Other Symptoms Psych: Denies: Mood Normal, Anxiety, Depression, Memory Issues, Thoughts of Self Harm, Anger, Thoughts of Harming Other, Other Psych Physical Examination General: Alert, Cooperative, mild distress from abdominal discomfort, burping often, stops to vomit into emesis bag during examination Eye: PERRLA, Conjunctiva & lids normal ENT: Atraumatic, Mucous membr. moist/pink Neck: Positive: Supple, JVD Chest: Diminished R posterior lower field, otherwise clear to auscultation. No wheezing Heart Exam: irregularly irregular, s1s2, no noted murmurs Abdomen: distended, hypoactive sounds, tympanitic, RUQ pain with unreliable Ordoñez likely 2/2 girth, otherwise no rebound, involuntary guarding or shifting dullness Extremity: 2+ DP pulses Skin: Nl turgor and temperature, no rashes or lesions Neuro: Normal Speech, Strength at 5/5 X4 ext, Normal Tone, Sensation Intact, Cranial Nerves 3-12 NL Psych: Oriented x 3, good historian Assessment: 84 years old man with CAD s/p CABG?, s/p AVR with bio prosthetic valve, HTN, HLD, chronic atrial fibrillation, BPH and chronic right pleural effusion who presented to the ED reporting 3 days of abdominal pain, nausea, emesis, bloating and distention and found to have evidence of acute cholecystitis, reaccumulation of his chronic R pleural effusion and clinically now with ileus. Cholecystitis: Abdominal pain, RUQ pain on exam, CT with cholelithiasis and ev idence of inflammation -continue empiric zosyn -day team to consult IR in the morning for possible cholecystostomy per surgery recs -surgery consulted, Dr. Castellanos aware, recommending holding anticoagulation, abx, NPO and pursuing cholecystostomy. However if IR defers cholecystostomy, to pursue HIDA scan -IVF d5NS while NPO at 75cc/hr -morphine 4q6hp for severe abdominal pain Ileus: 2/2 to ongoing cholecystitis -NGT placed to low intermittent suction -IVF with D5NS -NPO -zofran IV PRN CAD s/p likely CABG w/ AVR -continue ASA, lipitor chronic Afib: -switch PO metop to metop IV Q6H for rate control -hold xarelto with pending interventions for cholecystitis -telemetry HTN: -holding home ACEi not tolerating much PO, giving IV metop q6H will escalate antihypertensives if indicated R pleural effusion: chronic, recurrent -currently on room air, per Dr. Oates's last evaluation, does not require pleurX and to tap if symptomatic but otherwise monitor. 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 Inpatient. Vital Signs Vital Signs Date Time Temp Pulse Resp B/P (MAP) Pulse Ox O2 Delivery O2 Flow Rate FiO2 12/05/19 00:00 98.7 88 16 122/78 (93) 97 Room Air Laboratory Data Labs 24H Laboratory Tests 2 12/04/19 15:59: Immature Granulocyte % (Auto) 0.8, Neutrophils (%) (Auto) 89.9H, Lymphocytes (%) (Auto) 1.8L, Monocytes (%) (Auto) 7.3H, Eosinophils (%) (Auto) 0.0, Basophils (%) (Auto) 0.2, Neutrophils # (Auto) 11.1H, Lymphocytes # (Auto) 0.2L, Monocytes # (Auto) 0.9H, Eosinophils # (Auto) 0.0, Basophils # (Auto) 0.0, Nucleated Red Blood Cells % (auto) 0.0, Anion Gap 10, Glomerular Filtration Rate > 60.0, Calcium Level 8.7L, Total Bilirubin 4.2H, Direct Bilirubin 0.6H, Aspartate Amino Transf (AST/SGOT) 44H, Alanine Aminotransferase (ALT/SGPT) 37, Alkaline Phosphatase 95, Total Creatine Kinase 115, Creatine Kinase MB 5.8H, Creatine Kinase MB Relative Index 5.04H, Troponin I 0.02, Total Protein 6.9, Albumin 3.1L, Albumin/Globulin Ratio 0.82L, Lipase 56L CBC/BMP Laboratory Tests 12/04/19 15:59 Home Medications Scheduled Finasteride (Finasteride) 5 Mg Tablet, 5 MG PO DAILY Fish Oil/Dha/Epa (Fish Oil 1,200 mg Fish Oil) 1 Each Capsule, 1 CAP PO BID Furosemide (Furosemide) 20 Mg Tablet, 20 MG PO DAILY Lisinopril (Lisinopril) 30 Mg Tablet, 30 MG PO DAILY Lovastatin (Lovastatin) 40 Mg Tablet, 80 MG PO QHS Metoprolol Tartrate (Metoprolol Tartrate) 25 Mg Tablet, 25 MG PO BID Multivitamin (Multivitamins) 1 Each Capsule, 1 TAB PO DAILY Oxybutynin Chloride (Oxybutynin Chloride) 5 Mg Tablet, 5 MG PO DAILY Rivaroxaban (Xarelto) 20 Mg Tablet, 20 MG PO QPM WITH DINNER Tamsulosin Hcl (Tamsulosin HCl) 0.4 Mg Capsule, 0.4 MG PO DAILY Ubidecarenone (Co Q-10) 200 Mg Capsule, 200 MG PO DAILY Scheduled PRN Acetaminophen (Arthritis Pain Reliever) 650 Mg Tablet.er, 650 MG PO TID PRN for PAIN Metoprolol Tartrate (Metoprolol Tartrate) 25 Mg Tablet, 25 MG PO DAILY PRN for HBP Allergies Coded Allergies: No Known Allergies (Unverified , 10/15/19) A-FIB/CHADSVASC A-FIB History Current/History of A-Fib/PAF?: Yes Current PO Anticoag Therapy: No Age/Risk Factor Scoring CHADSVASC: CHADSVASC Response (Comments) Value Age Risk Factor Age >/= 75 years old 2 Gender Risk Factor Male 0 Hx of CHF No 0 Hx of HTN Yes 1 Hx of Stroke/TIA/or VTE Yes 2 Hx of Diabetes No 0 Hx of Vascular Disease Yes 1 Total 6 Treatment Treatment ordered: NONE Reason Anticoagulant not given: Recent/upcomin procedure LORENA VIVEROS MD December 05, 2019 03:48
[2019-12-05] MEDS: METOPROLOL 5 MG/5 ML VIAL IV SCH ×3 (04:08→16:40)
[2019-12-05 06:15] LABS: HEMATOCRIT 37.9 % (42.0-52.0); HEMOGLOBIN 12.8 g/dl (13.5-17.5); MEAN CORPUSCULAR HGB CONC 33.8 g/dl (32.0-36.5); MEAN CORPUSCULAR VOLUME 91.8 fl (80.0-96.0); PLATELET COUNT, AUTOMATED 153 10^3/uL (150-450); RED BLOOD COUNT 4.13 10^6/uL (4.30-6.10); WHITE BLOOD COUNT 9.2 10^3/uL (4.0-10.0)
[2019-12-05 06:29] LABS: ALBUMIN 2.4 GM/DL (3.2-5.2); ALT/SGPT 34 U/L (12-78); BILIRUBIN,TOTAL 2.9 MG/DL (0.2-1.0); BLOOD UREA NITROGEN 31 MG/DL (7-18); CALCIUM LEVEL 7.9 MG/DL (8.8-10.2); CARBON DIOXIDE LEVEL 27 MEQ/L (21-32); CHLORIDE LEVEL 98 MEQ/L (98-107); CREATININE FOR GFR 0.81 MG/DL (0.70-1.30); GLOMERULAR FILTRATION RATE > 60.0 (>35); GLUCOSE, FASTING 158 MG/DL (70-100); POTASSIUM SERUM 3.4 MEQ/L (3.5-5.1); SODIUM LEVEL 133 MEQ/L (136-145); TOTAL PROTEIN 5.9 GM/DL (6.4-8.2)
--- NOTE | 2019-12-05 08:39 | IPN ---
DATE: 12/05/2019 The patient has been doing better overnight. His nasogastric (NG) tube has been in place. Labs are still pending this morning, but overall he has not been septic appearing per se. He states his abdominal pain is much better than it was. He is really not having a significant amount. His NG tube drainage was adjusted and seemed to have about 600 or 700 mL after adjustment. His abdominal exam reveals a much less distended abdomen, but he has a firm palpable mass in the right upper quadrant consistent with his probable inflamed gallbladder. IMPRESSION AND PLAN: The patient has evidence of probable cholecystitis as the etiology for his ileus. He feels a lot better. We will wait for his white count. If his white count is more elevated this morning or if he has a temperature spike, I would recommend proceeding with a cholecystostomy tube today. However, if his white count is down and he stays afebrile, we may be able to postpone this indefinitely or possibly until his anticoagulation has weaned off some more. This will have to be a day by day evaluation per se. In any case, I do feel that he has an extremely high pain tolerance and his abdominal exam may be somewhat unreliable given this finding. 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
--- NOTE | 2019-12-05 08:51 | CR ---
DATE OF CONSULTATION: 12/04/2019 HISTORY OF PRESENT ILLNESS: The patient is an 84-year-old male who has had numerous recurrent episodes of right pleural effusions essentially had a 3-day history of abdominal pain, nausea, vomiting, bloating and distension but essentially has had some crampy abdominal pain that was progressive today. Had some nonbloody emesis proceeded to the hospital for evaluation. The patient has a leukocytosis with a CT scan showing some gallbladder wall thickening, some stranding around the gallbladder. Also a large right pleural effusion. He is on anticoagulation with Xarelto. PAST MEDICAL HISTORY: Significant for history of the aortic valve replacement, history of coronary artery bypass graft (CABG), history of thoracentesis times two, history of hip replacement, history of carpal tunnel, history of coronary artery disease, chronic atrial fibrillation, hypertension, hyperlipidemia, benign prostatic hypertrophy (BPH), kidney stones. PHYSICAL EXAMINATION: Reveals an 84-year-old male who looks uncomfortable, very distended and complaining of mostly pressure, as his major complaint, across his abdomen. HEENT is unremarkable. NECK: Supple without adenopathy. LUNGS: Clear, anteriorly although diminished at the right posterior aspect. HEART: Heart is regular with many irregular beats. ABDOMEN: Distended, tympanitic throughout. No significant tenderness is appreciated but his abdomen is so tense that it is hard to truly palpate deeply on his exam. EXTREMITIES: Warm, well-perfused. IMPRESSION AND PLAN: The patient has evidence of ileus at this point. Nasogastric (NG) tube decompression, nothing by mouth is warranted. I anticipate the ileus is secondary to cholecystitis. Given that this has been going on for several days with the significant inflammation of the gallbladder wall, I would suggest that we see how he does overnight with antibiotic treatment. If his white count comes down and he is feeling much better, we may be able to resolve this issue with antibiotic treatment without further intervention. However, the inflammation that is caused from this probable gallbladder infection is significant enough to cause an ileus. Thus implies that this may tend to be less likely treated with antibiotic treatment alone and may need a percutaneous cholecystostomy tube for drainage as a temporary measure. I would recommend re-evaluating the white count in the morning seeing how that is doing and clinically seeing how he is doing. If he clinically improves his white count is slightly down, then watching this over the ensuing 24-48 hours is reasonable and that will the allow the Xarelto work out of his system to make intervention if necessary less risky for bleeding complications.
[2019-12-05] MEDS ORDERED: KCL 10MEQ/100ML SWI (KRUN) 10 MEQ in IV 1 EA IV ONE (10:00)
--- NOTE | 2019-12-05 10:02 | IPNPDOC ---
Subjective Date Seen The patient was seen on 12/05/19. Subjective Chief Complaint/HPI Patient is feeling slightly better after he had the NG tube placed in, abdomen is soft on exam General: Denies: ROS Unobtainable, Chills, Night Sweats, Fatigue, Malaise, Normal Appetite, Other Symptoms Constitutional: Denies: Chills, Fever, Malaise, Night Sweats, Weakness, Fatigue, Weight Loss, Lethargy, Other Eyes: Denies: Pain, Vision change, Conjunctivae inflammation, Eyelid inflammation, Redness, Other ENT: Denies: Head Aches, Ear Pain, Dysphagia, Sinus Congestion, Post Nasal Drip, Sore Throat, Epistaxis, Other Symptoms Pulmonary: Denies: Dyspnea, Cough, Pleuritic Chest Pain, Other Symptoms Cardiovascular: Denies: Chest Pain, Palpitations, Orthopnea, Paroxysmal Noc. Dyspnea, Edema, Lt Headedness, Other Symptoms Gastrointestinal: Reports: Abdominal Pain Genitourinary: Denies: Dysuria, Frequency, Incontinence, Hematuria, Retention, Other Symptoms Musculoskeletal: Denies: Neck Pain, Back Pain, Shoulder Pain, Arm Pain, Hand Pain, Leg Pain, Foot Pain, Joint Pain, Muscle Pain, Spasms, Other Symptoms Neurological: Denies: Weakness, Numbness, Incoordination, Change in speech, Confusion, Seizures, Other Symptoms Objective Physical Examination General Exam: Positive: Alert, Cooperative Eye Exam: Positive: PERRLA, Conjunctiva & lids normal ENT Exam: Positive: Atraumatic Neck Exam: Positive: Supple Chest Exam: Positive: Clear to auscultation Heart Exam: Positive: Rate Normal, Normal S1, Normal S2 Abdomen Exam: Positive: Normal bowel sounds, Soft, Tenderness (mild tenderness all over the abdomen) Extremity Exam: Positive: Normal pulses Skin Exam: Positive: Nl turgor and temperature Neuro Exam: Positive: Strength at 5/5 X4 ext, Sensation Intact, Cranial Nerves 3-12 NL Assessment /Plan Problems (1) Acute cholecystitis Status: Acute Problem Text: Acute cholecystitis NG tube in place with copious amount of drainage Patient is symptomatically feeling better since last night . We'll continue nothing by mouth status Communicated with Dr. Multani regarding cholecystotomy to placement, but since patient took his last dose of anticoagulation on Monday night. His WBC is count is getting better and he is symptomatically better, she is spoke with Dr. Castellanos and will hold on placing a cholecystotomy tube and just follow conservative medical management. Continue IV antibiotics with Zosyn Continue IV fluids as per orders Pain management Further, as per surgery accommodation (2) Atrial fibrillation with RVR Status: Acute Problem Text: History of chronic A. fib Patient is a nothing by mouth, hence metoprolol changed to IV Holding Xarelto at the present time On continuous radiation monitor (3) HTN (hypertension) Status: Chronic Problem Text: Holding by mouth meds Continue IV metoprolol Will restart by mouth meds once he is taken oral feeding (4) Hyperlipemia Status: Chronic Problem Text: Hold by mouth meds (5) Hypokalemia Status: Acute Problem Text: KCl 10 mEq IV 1 ordered Repeat labs in a.m. Plan/VTE VTE Prophylaxis Ordered?: Yes VS, I&O, 24H, Fishbone Vital Signs/I&O Vital Signs Date Time Temp Pulse Resp B/P (MAP) Pulse Ox O2 Delivery O2 Flow Rate FiO2 12/05/19 08:00 99.5 90 16 134/87 (103) 95 Room Air I&O- Last 24 Hours up to 6 AM 12/05/19 06:00 Intake Total 775 ml Output Total 1000 ml Balance -225 ml Laboratory Data 24H LABS Laboratory Tests 2 12/04/19 15:59: Immature Granulocyte % (Auto) 0.8, Neutrophils (%) (Auto) 89.9H, Lymphocytes (%) (Auto) 1.8L, Monocytes (%) (Auto) 7.3H, Eosinophils (%) (Auto) 0.0, Basophils (%) (Auto) 0.2, Neutrophils # (Auto) 11.1H, Lymphocytes # (Auto) 0.2L, Monocytes # (Auto) 0.9H, Eosinophils # (Auto) 0.0, Basophils # (Auto) 0.0, Nucleated Red Blood Cells % (auto) 0.0, Anion Gap 10, Glomerular Filtration Rate > 60.0, Calcium Level 8.7L, Total Bilirubin 4.2H, Direct Bilirubin 0.6H, Aspartate Amino Transf (AST/SGOT) 44H, Alanine Aminotransferase (ALT/SGPT) 37, Alkaline Phosphatase 95, Total Creatine Kinase 115, Creatine Kinase MB 5.8H, Creatine Kinase MB Relative Index 5.04H, Troponin I 0.02, Total Protein 6.9, Albumin 3.1L, Albumin/Globulin Ratio 0.82L, Lipase 56L 12/05/19 05:15: Nucleated Red Blood Cells % (auto) 0.0, Anion Gap 8, Glomerular Filtration Rate > 60.0, Calcium Level 7.9L, Total Bilirubin 2.9H, Aspartate Amino Transf (AST/SGOT) 34, Alanine Aminotransferase (ALT/SGPT) 34, Alkaline Phosphatase 81, Total Protein 5.9L, Albumin 2.4#L, Albumin/Globulin Ratio 0.69L CBC/BMP Laboratory Tests 12/04/19 15:59 12/05/19 05:15 KIRILL WYNN MD December 05, 2019 10:01
[2019-12-05] MEDS: D5W/0.9% SODIUM CHLORIDE 1,000 ML IV SCH (10:04)
[2019-12-05 10:14] LABS: INR 2.23; PROTHROMBIN TIME 24.5 SECONDS (11.8-14.0)
--- NOTE | 2019-12-05 22:07 | ECGEPIP ---
[facility] - ED Test Date: 2019-12-04 Pat Name: NORIS WYATT Department: Room: - Gender: Male [employer]: primo : [id number] Requested By: YUVAL Zhou Order Number: [id number] Reading MD: Sam Burnette Measurements Intervals [place] Rate: 103 P: DC: 0 QRS: 120 QRSD: 120 T: 8 QT: 337 QTc: 442 Interpretive Statements ATRIAL FIBRILLATION WITH RAPID VENTRICULAR RESPONSE POSSIBLE RIGHT VENTRICULAR HYPERTROPHY MODERATE INTRAVENTRICULAR CONDUCTION DELAY SIMILAR TO 08/28/19 Electronically Signed on 12-05-2019 22:07:34 EDT by Sam Burnette
[2019-12-06] VITALS (9 sets, daily range): BP systolic 122–188; BP diastolic 78–100
[2019-12-06] MEDS: METOPROLOL 5 MG/5 ML VIAL IV SCH ×5 (00:14→23:38)
[2019-12-06] MEDS: PIPERACILLIN/TAZOBACTAM SOD 3.375 GM in D5W MINI-BAG PLUS 50 ML IV SCH ×4 (01:47→20:11)
[2019-12-06] MEDS: D5W/0.9% SODIUM CHLORIDE 1,000 ML IV SCH ×2 (01:49→12:10)
[2019-12-06 05:54] LABS: BASO % 0.4 % (0.0-1.0); HEMATOCRIT 39.3 % (42.0-52.0); HEMOGLOBIN 13.1 g/dl (13.5-17.5); LYMPH # 0.4 10^3/uL (1.5-5.0); LYMPH % 4.4 % (24.0-44.0); MEAN CORPUSCULAR HEMOGLOBIN 31.3 pg (27.0-33.0); MEAN CORPUSCULAR HGB CONC 33.3 g/dl (32.0-36.5); MEAN CORPUSCULAR VOLUME 93.8 fl (80.0-96.0); MONO % 12.3 % (0.0-5.0); NEUTROPHILS # 6.7 10^3/uL (1.5-8.5); NEUTROPHILS % 81.7 % (36.0-66.0); PLATELET COUNT, AUTOMATED 169 10^3/uL (150-450); RED BLOOD COUNT 4.19 10^6/uL (4.30-6.10); WHITE BLOOD COUNT 8.2 10^3/uL (4.0-10.0)
[2019-12-06 06:21] LABS: ALBUMIN 2.3 GM/DL (3.2-5.2); ALT/SGPT 78 U/L (12-78); BLOOD UREA NITROGEN 28 MG/DL (7-18); CALCIUM LEVEL 7.8 MG/DL (8.8-10.2); CARBON DIOXIDE LEVEL 31 MEQ/L (21-32); CHLORIDE LEVEL 104 MEQ/L (98-107); CREATININE FOR GFR 0.78 MG/DL (0.70-1.30); GLOMERULAR FILTRATION RATE > 60.0 (>35); GLUCOSE, FASTING 156 MG/DL (70-100); SODIUM LEVEL 143 MEQ/L (136-145); TOTAL PROTEIN 5.7 GM/DL (6.4-8.2)
[2019-12-06] MEDS: KCL 10MEQ/100ML SWI (KRUN) 10 MEQ in IV 1 EA IV SCH ×4 (07:06→16:16)
[2019-12-06 07:08] LABS: MAGNESIUM LEVEL 2.4 MG/DL (1.8-2.4)
--- NOTE | 2019-12-06 10:12 | IPNPDOC ---
Subjective Date Seen The patient was seen on 12/06/19. Subjective Chief Complaint/HPI Patient complaining of discomfort but not pain and right upper quadrant. No fever or any other complaints observed last night General: Denies: ROS Unobtainable, Chills, Night Sweats, Fatigue, Malaise, Normal Appetite, Other Symptoms Constitutional: Denies: Chills, Fever, Malaise, Night Sweats, Weakness, Fatigue, Weight Loss, Lethargy, Other Pulmonary: Denies: Dyspnea, Cough, Pleuritic Chest Pain, Other Symptoms Cardiovascular: Denies: Chest Pain, Palpitations, Orthopnea, Paroxysmal Noc. Dyspnea, Edema, Lt Headedness, Other Symptoms Gastrointestinal: Reports: Abdominal Pain Genitourinary: Denies: Dysuria, Frequency, Incontinence, Hematuria, Retention, Other Symptoms Musculoskeletal: Denies: Neck Pain, Back Pain, Shoulder Pain, Arm Pain, Hand Pain, Leg Pain, Foot Pain, Joint Pain, Muscle Pain, Spasms, Other Symptoms Neurological: Denies: Weakness, Numbness, Incoordination, Change in speech, Confusion, Seizures, Other Symptoms Objective Physical Examination ENT Exam: Positive: Atraumatic Neck Exam: Positive: Supple Chest Exam: Positive: Clear to auscultation Heart Exam: Positive: Rate Normal, Normal S1, Normal S2 Abdomen Exam: Positive: Normal bowel sounds, Soft, Tenderness (. Minimum tenderness in right upper quadrant on deep palpation, palpable gallbladder) Extremity Exam: Positive: Normal pulses Skin Exam: Positive: Nl turgor and temperature Neuro Exam: Positive: Strength at 5/5 X4 ext, Sensation Intact, Cranial Nerves 3-12 NL Assessment /Plan Problems (1) Acute cholecystitis Status: Acute Problem Text: Acute cholecystitis NG tube in place with drainage Patient complained of mild discomfort but not pain at the right upper quadrant Patient is nothing by mouth Continue IV antibiotics with Zosyn Continue IV fluids as per orders Discussed with Dr. Castellanos. He will see patient today and decide about any surgical recommendation (2) Atrial fibrillation with RVR Status: Acute Problem Text: History of chronic A. fib Patient is a nothing by mouth, hence metoprolol changed to IV with control vent rate Holding Xarelto at the present time On continuous playground monitor (3) HTN (hypertension) Status: Chronic Problem Text: Holding by mouth meds Continue IV metoprolol Will restart by mouth meds once he is taken oral feeding (4) Hyperlipemia Status: Chronic Problem Text: Hold by mouth meds (5) Hypokalemia Status: Acute Problem Text: KCl 10 mEq IV 2 ordered by the night team . Repeat labs in a.m. Plan/VTE VTE Prophylaxis Ordered?: Yes VS, I&O, 24H, Fishbone Vital Signs/I&O Vital Signs Date Time Temp Pulse Resp B/P (MAP) Pulse Ox O2 Delivery O2 Flow Rate FiO2 12/06/19 07:36 97.7 86 20 148/78 (101) 96 Room Air I&O- Last 24 Hours up to 6 AM 12/06/19 06:00 Intake Total 1750 ml Output Total 2400 ml Balance -650 ml Laboratory Data 24H LABS Laboratory Tests 2 12/06/19 05:09: Immature Granulocyte % (Auto) 1.2, Neutrophils (%) (Auto) 81.7H, Lymphocytes (%) (Auto) 4.4L, Monocytes (%) (Auto) 12.3H, Eosinophils (%) (Auto) 0.0, Basophils (%) (Auto) 0.4, Neutrophils # (Auto) 6.7, Lymphocytes # (Auto) 0.4L, Monocytes # (Auto) 1.0H, Eosinophils # (Auto) 0.0, Basophils # (Auto) 0.0, Nucleated Red Blood Cells % (auto) 0.0, Anion Gap 8, Glomerular Filtration Rate > 60.0, Calcium Level 7.8L, Magnesium Level 2.4, Total Bilirubin 2.0H, Aspartate Amino Transf (AST/SGOT) 88H, Alanine Aminotransferase (ALT/SGPT) 78, Alkaline Phosphatase 83, Total Protein 5.7L, Albumin 2.3L, Albumin/Globulin Ratio 0.7 CBC/BMP Laboratory Tests 12/06/19 05:09 KIRILL WYNN MD December 06, 2019 10:12
[2019-12-06] MEDS ORDERED: PILL CUTTER 1 EACH XX PRN (12:30)
[2019-12-06 12:33] LABS: MAGNESIUM LEVEL 2.3 MG/DL (1.8-2.4); POTASSIUM SERUM 3.3 MEQ/L (3.5-5.1)
--- NOTE | 2019-12-06 13:20 | REP ---
REASON: Question ileus. The accompanying frontal view of the chest has been compared to the latest prior two-view examination of the chest of 08/31/2019. There is cardiomegaly, status quo. The right-sided pleural effusion seen previously has increased. There is no evidence of free subdiaphragmatic air. The intestinal gas pattern is nonspecific. There is no evidence of intestinal obstruction or significant ileus. The organ silhouettes insofar as delineated are within normal limits. IMPRESSION: 1. Increased right pleural effusion. 2. Stable cardiomegaly. 3. Nonspecific intestinal gas pattern without evidence of a significant ileus or obstruction. There is a small amount of gas within a few small bowel loops, which are not dilated. Electronically Signed by Ned Batista DO 12/06/2019 01:31 P
--- NOTE | 2019-12-06 13:57 | IPN ---
DATE: 12/06/2019 Subjectively, the patient states that he is feeling better than he was previously, but he is still having a lot of burping and still feels mildly distended. He has had some diarrheal bowel movements. His white count has normalized and he has been afebrile, but he is still having significant nasogastric (NG) tube drainage and continues have some mild shortness breath. On physical exam, his lungs are clear anteriorly. However, the right side, specifically right posterior, is significantly decreased consistent with his large pleural effusion seen on CAT scan the abdomen and pelvis. He does have a palpable mass in the right upper quadrant consistent with his episode of cholecystitis and I anticipate this is his distended gallbladder. He is distended overall with a tympanitic abdomen and his NG tube does not seem to be functioning very well at this point. IMPRESSION AND PLAN: The patient has evidence of an ileus associated with his probable cholecystitis. Given his ileus and abdominal distention, laparoscopic cholecystectomy is much more difficult and has a higher possibility of needing an open operative intervention. Thus, I would recommend proceeding with a percutaneous cholecystostomy tube at this time to see if this helps his ileus resolve and improve his overall medical status. His shortness of breath is also a contraindication for operative intervention at this time and he would need a thoracentesis preoperatively to optimize him as well for operative intervention. Given these findings, I do feel that his next best option at this time is to proceed with a percutaneous cholecystostomy tube. Will see how he does with the drainage over the weekend. Hopefully, we can discontinue his NG tube and progress his diet as well.
[2019-12-06] MEDS: SIMETHICONE 80 MG CHEW TAB PO SCH ×3 (13:58→20:11)
[2019-12-06] MEDS: MORPHINE 4 MG/ML 1ML VIAL/SYRINGE (J2270) IV PRN (21:16)
[2019-12-07] MEDS: D5W/0.9% SODIUM CHLORIDE 1,000 ML IV SCH ×2 (02:02→18:19)
[2019-12-07] MEDS: PIPERACILLIN/TAZOBACTAM SOD 3.375 GM in D5W MINI-BAG PLUS 50 ML IV SCH ×4 (02:02→20:19)
[2019-12-07 04:00] VITALS: BP 160/100
[2019-12-07] MEDS: METOPROLOL 5 MG/5 ML VIAL IV SCH ×4 (05:10→23:19)
[2019-12-07 05:13] LABS: HEMATOCRIT 40.7 % (42.0-52.0); HEMOGLOBIN 13.6 g/dl (13.5-17.5); MEAN CORPUSCULAR HEMOGLOBIN 31.4 pg (27.0-33.0); MEAN CORPUSCULAR HGB CONC 33.4 g/dl (32.0-36.5); PLATELET COUNT, AUTOMATED 171 10^3/uL (150-450); RED BLOOD COUNT 4.33 10^6/uL (4.30-6.10); WHITE BLOOD COUNT 7.7 10^3/uL (4.0-10.0)
[2019-12-07 05:15] LABS: BASO % 0.3 % (0.0-1.0); HEMATOCRIT 41.5 % (42.0-52.0); HEMOGLOBIN 13.8 g/dl (13.5-17.5); LYMPH # 0.6 10^3/uL (1.5-5.0); LYMPH % 8.1 % (24.0-44.0); MEAN CORPUSCULAR HEMOGLOBIN 31.3 pg (27.0-33.0); MEAN CORPUSCULAR HGB CONC 33.3 g/dl (32.0-36.5); MEAN CORPUSCULAR VOLUME 94.1 fl (80.0-96.0); MONO # 0.9 10^3/uL (0.0-0.8); MONO % 12.2 % (0.0-5.0); NEUTROPHILS # 5.8 10^3/uL (1.5-8.5); NEUTROPHILS % 76.9 % (36.0-66.0); PLATELET COUNT, AUTOMATED 173 10^3/uL (150-450); RED BLOOD COUNT 4.41 10^6/uL (4.30-6.10); WHITE BLOOD COUNT 7.6 10^3/uL (4.0-10.0)
[2019-12-07 05:48] LABS: ALBUMIN 2.3 GM/DL (3.2-5.2); ALT/SGPT 66 U/L (12-78); BILIRUBIN,TOTAL 2.2 MG/DL (0.2-1.0); BLOOD UREA NITROGEN 26 MG/DL (7-18); CALCIUM LEVEL 7.9 MG/DL (8.8-10.2); CARBON DIOXIDE LEVEL 33 MEQ/L (21-32); CHLORIDE LEVEL 104 MEQ/L (98-107); CREATININE FOR GFR 0.77 MG/DL (0.70-1.30); GLOMERULAR FILTRATION RATE > 60.0 (>35); GLUCOSE, FASTING 127 MG/DL (70-100); POTASSIUM SERUM 3.3 MEQ/L (3.5-5.1); SODIUM LEVEL 142 MEQ/L (136-145)
[2019-12-07 08:00] VITALS: BP 154/70
[2019-12-07] MEDS: SIMETHICONE 80 MG CHEW TAB PO SCH (08:09)
[2019-12-07] MEDS: KCL 10MEQ/100ML SWI (KRUN) 10 MEQ in IV 1 EA IV SCH ×2 (09:56→11:24)
--- NOTE | 2019-12-07 10:37 | IPNPDOC ---
Subjective Date Seen The patient was seen on 12/07/19. Subjective Chief Complaint/HPI Patient is angry and frustrated, expressed that he has eaten nothing by mouth since last 6 days and nothing is being done which he means surgical intervention. All the complications and contraindications for lap cholecystectomy were explained to him, but he is still insistent on doing something. According to nursing staff about 650 mL of gastric output was drained via NG tube Patient is afebrile and as per patient, he had a BM today Constitutional: Denies: Chills, Fever, Malaise, Night Sweats, Weakness, Fatigue, Weight Loss, Lethargy, Other Eyes: Denies: Pain, Vision change, Conjunctivae inflammation, Eyelid inflammation, Redness, Other Pulmonary: Denies: Dyspnea, Cough, Pleuritic Chest Pain, Other Symptoms Cardiovascular: Denies: Chest Pain, Palpitations, Orthopnea, Paroxysmal Noc. Dyspnea, Edema, Lt Headedness, Other Symptoms Gastrointestinal: Reports: Abdominal Pain Musculoskeletal: Denies: Neck Pain, Back Pain, Shoulder Pain, Arm Pain, Hand Pain, Leg Pain, Foot Pain, Joint Pain, Muscle Pain, Spasms, Other Symptoms Neurological: Denies: Weakness, Numbness, Incoordination, Change in speech, Confusion, Seizures, Other Symptoms Objective Physical Examination ENT Exam: Positive: Atraumatic Neck Exam: Positive: Supple Chest Exam: Positive: Clear to auscultation Heart Exam: Positive: Rate Normal, Normal S1, Normal S2 Abdomen Exam: Positive: Normal bowel sounds, Soft, Tenderness (. Minimum tenderness in right upper quadrant on deep palpation, palpable gallbladder) Extremity Exam: Positive: Normal pulses Skin Exam: Positive: Nl turgor and temperature Neuro Exam: Positive: Strength at 5/5 X4 ext, Sensation Intact, Cranial Nerves 3-12 NL Assessment /Plan Problems (1) Acute cholecystitis Status: Acute Problem Text: Acute cholecystitis Patient has NG tube in and 650 mL of gastric secretions were aspirated Patient is still is nothing by mouth Surgical follow-up appreciated, not a candidate for laparoscopic cholecystectomy Interventional radiology is not available on the weekend for cholecystotomy placement Continue IV antibiotics, Zosyn as he seems to be responding and his WBC count is 7.6 today and he is afebrile Possible NG tube removal and is started diet once followed up by surgery and recommended (2) Atrial fibrillation with RVR Status: Acute Problem Text: History of chronic A. 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 (3) HTN (hypertension) Status: Chronic Problem Text: Holding by mouth meds Continue IV metoprolol Will restart by mouth meds once he is taken oral feeding (4) Hyperlipemia Status: Chronic Problem Text: Hold by mouth meds (5) Hypokalemia Status: Acute Problem Text: Patient's potassium again was 3.3 KCl 10mEqs 2 has been ordered Plan/VTE VTE Prophylaxis Ordered?: Yes VS, I&O, 24H, Fishbone Vital Signs/I&O Vital Signs Date Time Temp Pulse Resp B/P (MAP) Pulse Ox O2 Delivery O2 Flow Rate FiO2 12/07/19 08:00 98.0 92 16 154/70 (98) 96 Room Air I&O- Last 24 Hours up to 6 AM 12/07/19 06:00 Intake Total 1275 ml Output Total 900 ml Balance 375 ml Laboratory Data 24H LABS Laboratory Tests 2 12/06/19 11:57: Magnesium Level 2.3 12/07/19 04:51: Immature Granulocyte % (Auto) 2.5, Neutrophils (%) (Auto) 76.9H, Lymphocytes (%) (Auto) 8.1L, Monocytes (%) (Auto) 12.2H, Eosinophils (%) (Auto) 0.0, Basophils (%) (Auto) 0.3, Neutrophils # (Auto) 5.8, Lymphocytes # (Auto) 0.6L, Monocytes # (Auto) 0.9H, Eosinophils # (Auto) 0.0, Basophils # (Auto) 0.0, Nucleated Red Blood Cells % (auto) 0.0, Anion Gap 5L, Glomerular Filtration Rate > 60.0, Calcium Level 7.9L, Total Bilirubin 2.2H, Aspartate Amino Transf (AST/SGOT) 44H, Alanine Aminotransferase (ALT/SGPT) 66, Alkaline Phosphatase 80, Total Protein 6.0L, Albumin 2.3L, Albumin/Globulin Ratio 0.6 CBC/BMP Laboratory Tests 12/06/19 11:57 12/07/19 04:51 KIRILL WYNN MD December 07, 2019 10:36
[2019-12-07 12:00] VITALS: BP 152/84
[2019-12-07] MEDS: MORPHINE 4 MG/ML 1ML VIAL/SYRINGE (J2270) IV PRN (12:25)
[2019-12-07] MEDS: oxyBUTYnin 5 MG TAB PO SCH (15:30)
[2019-12-07] MEDS: lisinopriL 10 MG TAB PO SCH (15:31)
[2019-12-07] MEDS: TAMSULOSIN 0.4 MG CAP PO SCH (15:31)
[2019-12-07] MEDS: FINASTERIDE 5 MG TAB PO SCH (15:31)
[2019-12-07 16:00] VITALS: BP 129/76
[2019-12-07 20:00] VITALS: BP 145/80
[2019-12-07] MEDS: SIMVASTATIN 40 MG TAB PO SCH (20:19)
[2019-12-07] MEDS ORDERED: METOPROLOL TART 25 MG TABLET PO SCH (21:00)
[2019-12-08] MEDS: PIPERACILLIN/TAZOBACTAM SOD 3.375 GM in D5W MINI-BAG PLUS 50 ML IV SCH ×4 (02:15→20:30)
[2019-12-08 04:00] VITALS: BP 140/82
[2019-12-08] MEDS: D5W/0.9% SODIUM CHLORIDE 1,000 ML IV SCH (04:09)
[2019-12-08] MEDS: METOPROLOL 5 MG/5 ML VIAL IV SCH (04:10)
[2019-12-08 05:11] LABS: HEMATOCRIT 44.7 % (42.0-52.0); HEMOGLOBIN 14.2 g/dl (13.5-17.5); MEAN CORPUSCULAR HEMOGLOBIN 30.4 pg (27.0-33.0); MEAN CORPUSCULAR HGB CONC 31.8 g/dl (32.0-36.5); MEAN CORPUSCULAR VOLUME 95.7 fl (80.0-96.0); PLATELET COUNT, AUTOMATED 216 10^3/uL (150-450); RED BLOOD COUNT 4.67 10^6/uL (4.30-6.10); WHITE BLOOD COUNT 10.8 10^3/uL (4.0-10.0)
[2019-12-08 05:36] LABS: ALBUMIN 2.4 GM/DL (3.2-5.2); ALT/SGPT 54 U/L (12-78); BILIRUBIN,TOTAL 1.6 MG/DL (0.2-1.0); BLOOD UREA NITROGEN 22 MG/DL (7-18); CALCIUM LEVEL 7.7 MG/DL (8.8-10.2); CARBON DIOXIDE LEVEL 33 MEQ/L (21-32); CHLORIDE LEVEL 106 MEQ/L (98-107); CREATININE FOR GFR 0.77 MG/DL (0.70-1.30); GLOMERULAR FILTRATION RATE > 60.0 (>35); GLUCOSE, FASTING 115 MG/DL (70-100); POTASSIUM SERUM 3.7 MEQ/L (3.5-5.1); SODIUM LEVEL 143 MEQ/L (136-145); TOTAL PROTEIN 6.2 GM/DL (6.4-8.2)
[2019-12-08 08:00] VITALS: BP 122/76
[2019-12-08] MEDS: METOPROLOL TART 25 MG TABLET PO SCH ×2 (08:11→20:30)
[2019-12-08] MEDS: lisinopriL 10 MG TAB PO SCH (08:12)
[2019-12-08] MEDS: FINASTERIDE 5 MG TAB PO SCH (08:15)
[2019-12-08] MEDS: TAMSULOSIN 0.4 MG CAP PO SCH (08:15)
[2019-12-08] MEDS: oxyBUTYnin 5 MG TAB PO SCH (08:15)
--- NOTE | 2019-12-08 09:05 | IPN ---
DATE: 12/07/2019 HISTORY: Patient was admitted back on the by the hospitalist service with a diagnosis of acute cholecystitis. He was seen in consultation by general surgery and it was noted that he had been having pain for perhaps 3 days prior to admission. He was started on antibiotics. He had an ileus associated with the acute cholecystitis and a nasogastric (NG) tube was placed. With the antibiotic therapy his white blood cell count returned toward normal. He still has some discomfort in the epigastrium but reports that he has been having some flatus and has had several bowel movements. Vital signs show that he has been afebrile over the past 24 hours. His pulse is in the range of 65-104. Blood pressure is good. Intake and output show that he had 1600 in yesterday with 1200 out recorded. He did have four small bowel movements noted. PHYSICAL EXAMINATION: Patient is lying quietly in the hospital bed. He looks fairly comfortable at rest. The NG tube seems to be his chief complaint. Heart exam shows a regular rhythm. The lungs show good bilateral breath sounds though they may be diminished somewhat on the right. His abdomen is fairly soft but still perhaps mildly distended. There is a suggestion of a mass palpable in the medial aspect of the subcostal area on the right. This is mildly tender. The lower portions of the abdomen are nontender and soft. He does have bowel sounds present. Laboratory studies today include a CBC showing a white count of 8, hemoglobin of 14, hematocrit of 42, and a platelet count of 173,000. Differential count shows 77% neutrophils, 8% lymphocytes, and 12% monocytes. Chemistry profile shows a sodium of 142, potassium 3.3, chloride 104, CO2 of 33, BUN of 26, creatinine 0.8, and a glucose of 127. His liver function tests show a total bilirubin of 2.2, which is stable from the 15th but down from admission. AST is minimally elevated at 44 and the other LFTs are normal. He has no new imaging. Apparently, there had been a plan for him to have a percutaneous cholecystostomy tube but in the absence of an interventional radiologist this was not performed. IMPRESSION: Acute cholecystitis now perhaps 5-6 days old with obvious palpable mass in the epigastrium likely representing his inflamed gallbladder. RECOMMENDATIONS: At this point, the patient seems to be having less discomfort. His ileus appears to be resolving. He is complaining quite a bit about the NG tube. Although I think ideally he would have had a laparoscopic cholecystectomy this has not been the case. I think his bowel function is probably adequate to remove his NG tube and I have ordered removal of his NG tube today. I believe starting him on some clear liquids would be reasonable to see how he does with this. If he does not tolerate the diet, then he still may well require a cholecystectomy. I would continue the antibiotics for now. KATTY
--- NOTE | 2019-12-08 09:24 | IPNPDOC ---
Subjective Date Seen The patient was seen on 12/08/19. Subjective Chief Complaint/HPI Patient is tolerating clear liquid diet but still had some epigastric pain after taking his lovastatin. He had refused to take his by mouth metoprolol. I had extensive discussion with them this morning and he is willing to take his beta blockers to avoid any PVCs, nonsustained V. tach, etc. General: Denies: ROS Unobtainable, Chills, Night Sweats, Fatigue, Malaise, Normal Appetite, Other Symptoms Constitutional: Denies: Chills, Fever, Malaise, Night Sweats, Weakness, Fatigue, Weight Loss, Lethargy, Other Pulmonary: Denies: Dyspnea, Cough, Pleuritic Chest Pain, Other Symptoms Cardiovascular: Denies: Chest Pain, Palpitations, Orthopnea, Paroxysmal Noc. Dyspnea, Edema, Lt Headedness, Other Symptoms Gastrointestinal: Reports: Other Symptoms (epigastric pain) Genitourinary: Denies: Dysuria, Frequency, Incontinence, Hematuria, Retention, Other Symptoms Musculoskeletal: Denies: Neck Pain, Back Pain, Shoulder Pain, Arm Pain, Hand Pain, Leg Pain, Foot Pain, Joint Pain, Muscle Pain, Spasms, Other Symptoms Neurological: Denies: Weakness, Numbness, Incoordination, Change in speech, Confusion, Seizures, Other Symptoms Objective Physical Examination ENT Exam: Positive: Atraumatic Neck Exam: Positive: Supple Chest Exam: Positive: Clear to auscultation Heart Exam: Positive: Rate Normal, Normal S1, Normal S2 Abdomen Exam: Positive: Normal bowel sounds, Soft, Tenderness (. Minimum tenderness in right upper quadrant on deep palpation, palpable gallbladder) Extremity Exam: Positive: Normal pulses Skin Exam: Positive: Nl turgor and temperature Neuro Exam: Positive: Strength at 5/5 X4 ext, Sensation Intact, Cranial Nerves 3-12 NL Assessment /Plan Problems (1) Acute cholecystitis Status: Acute Problem Text: Acute cholecystitis Patient has NG tube in and 650 mL of gastric secretions were aspirated Patient is still is nothing by mouth Surgical follow-up appreciated, not a candidate for laparoscopic cholecystectomy Interventional radiology is not available on the weekend for cholecystotomy placement Continue IV antibiotics, Zosyn as he seems to be responding and his WBC count is 7.6 today and he is afebrile NG tube was removed yesterday, patient is tolerating clear liquids, but he was unable to tolerate lovastatin And he had also refused to take his by mouth metoprolol, I had extensive discussion with them regarding all the complications of not taking his beta b lockers may cause cardiac arrhythmias [place] and , he understands very well and now he is willing to take his meds regularly. Yesterday when he was not taking his by mouth metoprolol. He was started on IV metoprolol 5 mg to 6 hours, which will be DC'd now, monitor tech checked no events or arrhythmias noted over last night Will keep him on clear liquid diets and still hold his anticoagulants as he might still need cholecystotomy on Monday, which I doubt at this point as patient is improving clinically. Will await further input from surgical colleagues (2) Atrial fibrillation with RVR Status: Acute Problem Text: History of chronic A. fib Patient is a nothing by mouth, hence metoprolol changed to IV with control vent rate Once patient is started having oral intake, then we'll restart Xarelto and beta blockers orally (3) HTN (hypertension) Status: Chronic Problem Text: Holding by mouth meds Continue IV metoprolol Will restart by mouth meds once he is taken oral feeding (4) Hyperlipemia Status: Chronic Problem Text: Hold by mouth meds (5) Hypokalemia Status: Resolved Problem Text: Plan/VTE VTE Prophylaxis Ordered?: Yes VS, I&O, 24H, [facility] Vital Signs/I&O Vital Signs Date Time Temp Pulse Resp B/P (MAP) Pulse Ox O2 Delivery O2 Flow Rate FiO2 12/08/19 08:11 100 122/72 12/08/19 08:00 98.7 18 97 Room Air I&O- Last 24 Hours up to 6 AM 12/08/19 06:00 Intake Total 2645 ml Output Total 1300 ml Balance 1345 ml Laboratory Data 24H LABS Laboratory Tests 2 12/07/19 12:17: Bedside Glucose (Misc Panel) 124H 12/08/19 04:37: Nucleated Red Blood Cells % (auto) 0.0, Anion Gap 4L, Glomerular Filtration Rate > 60.0, Calcium Level 7.7L, Total Bilirubin 1.6H, Aspartate Amino Transf (AST/SGOT) 25, Alanine Aminotransferase (ALT/SGPT) 54, Alkaline Phosphatase 81, Total Protein 6.2L, Albumin 2.4L, Albumin/Globulin Ratio 0.6 CBC/BMP Laboratory Tests 12/08/19 04:37 KIRILL WYNN MD December 08, 2019 09:24
[2019-12-08] MEDS ORDERED: SLF 3 ML SYR IV PRN (09:45)
[2019-12-08 12:00] VITALS: BP 132/60
--- NOTE | 2019-12-08 13:12 | IPN ---
DATE: 12/08/2019 HISTORY: Patient is being observed with severe acute cholecystitis with a secondary ileus. Because of his medical issues a nonoperative approach was taken. He has been responding to his antibiotic therapy. Yesterday, his nasogastric (NG) tube was removed and he was started on clear liquids. Vital signs show that he has been afebrile over the past 24 hours. His pulse is in the low 90s to as high as 100. Blood pressure is good and his room air oxygen saturation is normal. Intake and output show that yesterday he had 2400 in with 1600 out. He had 720 mL of oral intake recorded. He has had a bowel movement this morning and denies any nausea or vomiting. PHYSICAL EXAMINATION: Patient is sitting propped up in the bed looking quite comfortable. He is alert and oriented. Sclerae are anicteric. Heart exam shows a regular rhythm at about 100. The lungs are generally clear though the breath sounds are slightly diminished on the right. The abdomen is fairly soft but still mildly full. He does have active bowel sounds. Laboratory studies today show white count of 11, hemoglobin 14, hematocrit of 45 and a platelet count of 216,000. Chemistry profile shows sodium of 143, potassium 3.7, chloride 106, CO2 of 33, BUN of 22, creatinine of 0.8 and a glucose of 115. Total bilirubin is down to 1.6 and the other liver function tests are normal. IMPRESSION: Patient appears to be doing well with his clear liquid diet. He denies any nausea. He has had some bowel function and has active bowel sounds. RECOMMENDATIONS: I would recommend continuing his antibiotics for now. I will advance his diet today. I have taken the liberty of discontinuing his D5 normal saline as he appears to be taking in adequate oral intake. I am going to order a chest x-ray to followup on his large right pleural effusion. KATTY
[2019-12-08] MEDS: SLF 3 ML SYR IV SCH ×2 (13:25→20:33)
[2019-12-08 16:00] VITALS: BP 118/64
[2019-12-08 20:00] VITALS: BP 110/70
[2019-12-08] MEDS: SIMVASTATIN 40 MG TAB PO SCH (20:30)
[2019-12-09] VITALS (11 sets, daily range): BP systolic 100–180; BP diastolic 62–104
[2019-12-09] MEDS: PIPERACILLIN/TAZOBACTAM SOD 3.375 GM in D5W MINI-BAG PLUS 50 ML IV SCH ×4 (02:30→20:09)
[2019-12-09 04:25] LABS: BASO % 0.3 % (0.0-1.0); EOS % 0.2 % (0.0-3.0); HEMATOCRIT 37.6 % (42.0-52.0); HEMOGLOBIN 12.7 g/dl (13.5-17.5); LYMPH # 0.5 10^3/uL (1.5-5.0); LYMPH % 5.6 % (24.0-44.0); MEAN CORPUSCULAR HEMOGLOBIN 31.8 pg (27.0-33.0); MEAN CORPUSCULAR HGB CONC 33.8 g/dl (32.0-36.5); MEAN CORPUSCULAR VOLUME 94.2 fl (80.0-96.0); MONO # 0.6 10^3/uL (0.0-0.8); MONO % 6.5 % (0.0-5.0); NEUTROPHILS % 83.5 % (36.0-66.0); PLATELET COUNT, AUTOMATED 186 10^3/uL (150-450); RED BLOOD COUNT 3.99 10^6/uL (4.30-6.10); WHITE BLOOD COUNT 9.6 10^3/uL (4.0-10.0)
[2019-12-09] MEDS: SLF 3 ML SYR IV SCH ×3 (05:02→21:36)
[2019-12-09 05:12] LABS: ALT/SGPT 36 U/L (12-78); BILIRUBIN,TOTAL 1.7 MG/DL (0.2-1.0); BLOOD UREA NITROGEN 18 MG/DL (7-18); CALCIUM LEVEL 7.3 MG/DL (8.8-10.2); CARBON DIOXIDE LEVEL 32 MEQ/L (21-32); CHLORIDE LEVEL 106 MEQ/L (98-107); GLOMERULAR FILTRATION RATE > 60.0 (>35); GLUCOSE, FASTING 103 MG/DL (70-100); POTASSIUM SERUM 2.9 MEQ/L (3.5-5.1); SODIUM LEVEL 144 MEQ/L (136-145); TOTAL PROTEIN 5.2 GM/DL (6.4-8.2)
[2019-12-09] MEDS ORDERED: POTASSIUM CHLORIDE 10 MEQ SR TABLET PO ONE ×2 (06:15→07:15)
[2019-12-09] MEDS: oxyBUTYnin 5 MG TAB PO SCH (09:00)
[2019-12-09] MEDS: FINASTERIDE 5 MG TAB PO SCH (09:00)
[2019-12-09] MEDS: TAMSULOSIN 0.4 MG CAP PO SCH (09:00)
[2019-12-09] MEDS: lisinopriL 10 MG TAB PO SCH (09:41)
[2019-12-09] MEDS: METOPROLOL TART 25 MG TABLET PO SCH ×2 (09:42→20:10)
--- NOTE | 2019-12-09 10:14 | REP ---
PORTABLE CHEST X-RAY: SINGLE VIEW. HISTORY: Follow effusion. Preliminary report is provided at the time of the exam by Dr. Juarez. Comparison chest x-ray: December 06, 2019 FINDINGS: Extensive pleural opacity right base consistent with effusion persists, essentially unchanged. Left lung is clear. Remainder of the right lung is free of infiltrate. The patient is status post aortic valve replacement and median sternotomy wires are seen. Mildly prominent heart. Pulmonary vasculature is not increased. IMPRESSION: Findings consistent with moderate right pleural effusion essentially unchanged. Electronically Signed by Davis Grimes MD 12/09/2019 10:27 A
--- NOTE | 2019-12-09 10:32 | IPNPDOC ---
Subjective Date Seen The patient was seen on 12/09/19. Subjective Chief Complaint/HPI Patient is sitting in chair ,eating his breakfast has no other new complaints General: Denies: ROS Unobtainable, Chills, Night Sweats, Fatigue, Malaise, Normal Appetite, Other Symptoms Pulmonary: Denies: Dyspnea, Cough, Pleuritic Chest Pain, Other Symptoms Cardiovascular: Denies: Chest Pain, Palpitations, Orthopnea, Paroxysmal Noc. Dyspnea, Edema, Lt Headedness, Other Symptoms Gastrointestinal: Denies: Nausea, Vomiting, Abdominal Pain, Diarrhea, Constip ation, Melena, Hematochezia, Other Symptoms Musculoskeletal: Denies: Neck Pain, Back Pain, Shoulder Pain, Arm Pain, Hand Pain, Leg Pain, Foot Pain, Joint Pain, Muscle Pain, Spasms, Other Symptoms Neurological: Denies: Weakness, Numbness, Incoordination, Change in speech, Confusion, Seizures, Other Symptoms Objective Physical Examination ENT Exam: Positive: Atraumatic Neck Exam: Positive: Supple Chest Exam: Positive: Clear to auscultation Heart Exam: Positive: Rate Normal, Normal S1, Normal S2 Abdomen Exam: Positive: Normal bowel sounds, Soft, Tenderness (, palpable gallbladder, right upper quadrant below the costal margin with minimal tenderness on deep palpation) Extremity Exam: Positive: Normal pulses Skin Exam: Positive: Nl turgor and temperature Neuro Exam: Positive: Strength at 5/5 X4 ext, Sensation Intact, Cranial Nerves 3-12 NL Assessment /Plan Problems (1) Acute cholecystitis Status: Acute Problem Text: Acute cholecystitis Progressively improving with IV antibiotics and he is now on full diet Continue IV antibiotics, Zosyn as he seems to be responding and his WBC count is 9.6 today and he is afebrile NG tube was removed. If he was started on clear liquid diets now to a regular diet, tolerating so far. Will restart patient's statins as patient is on a full diet now Patient is taking all his by mouth meds now, including metoprolol, and no arrhythmia or cardiac event noticed on the monitor Communicated with Dr. Multani, hopefully will patient have a cholecystotomy done today Further recommendation as per surgery (2) Atrial fibrillation with RVR Status: Acute Problem Text: History of chronic A. fib Patient is currently taking his by mouth metoprolol No incidents. I events noted on the monitor technician. Last night Anticoagulation is still on hold till cholecystotomy procedure is complete (3) HTN (hypertension) Status: Chronic Problem Text: Continue all home meds (4) Hyperlipemia Status: Chronic Problem Text: Continue all home meds (5) Hypokalemia Status: Resolved Problem Text: Patient's potassium is again 2.9, extra potassium has been ordered Repeat levels at 2 PM today and add more potassium if needed Plan/VTE VTE Prophylaxis Ordered?: Yes VS, I&O, 24H, Fishbone Vital Signs/I&O Vital Signs Date Time Temp Pulse Resp B/P (MAP) Pulse Ox O2 Delivery O2 Flow Rate FiO2 12/09/19 09:42 136 148/84 12/09/19 08:00 97.8 18 96 Room Air I&O- Last 24 Hours up to 6 AM 12/09/19 06:00 Intake Total 1295 ml Output Total 0 ml Balance 1295 ml Laboratory Data 24H LABS Laboratory Tests 2 12/09/19 03:43: Immature Granulocyte % (Auto) 3.9H, Neutrophils (%) (Auto) 83.5H, Lymphocytes (%) (Auto) 5.6L, Monocytes (%) (Auto) 6.5H, Eosinophils (%) (Auto) 0.2, Basophils (%) (Auto) 0.3, Neutrophils # (Auto) 8.0, Lymphocytes # (Auto) 0.5L, Monocytes # (Auto) 0.6, Eosinophils # (Auto) 0.0, Basophils # (Auto) 0.0, Nucleated Red Blood Cells % (auto) 0.0, Anion Gap 6L, Glomerular Filtration Rate > 60.0, Calcium Level 7.3L, Total Bilirubin 1.7H, Aspartate Amino Transf (AST/SGOT) 17, Alanine Aminotransferase (ALT/SGPT) 36, Alkaline Phosphatase 66, Total Protein 5.2L, Albumin 2.0L, Albumin/Globulin Ratio 0.6 CBC/BMP Laboratory Tests 12/09/19 03:43 KIRILL WYNN MD December 09, 2019 10:32
[2019-12-09] MEDS ORDERED: diphenhydrAMINE 50MG/ML VIAL (J1200) As Ordered ONE (11:17)
[2019-12-09] MEDS ORDERED: fentaNYL 100 MCG/2 ML INJECTION (J3010) As Ordered ONE (11:18)
[2019-12-09] MEDS ORDERED: MIDAZOLAM INJ 2MG/2ML VIAL (J2250 PER 1MG) As Ordered ONE (11:18)
[2019-12-09] MEDS ORDERED: LIDOCAINE 1% MDV 20ML VIAL As Ordered ONE (11:18)
[2019-12-09] MEDS ORDERED: cefTRIAXone SOD 1GM VIAL (J0696 PER 250MG) As Ordered ONE (11:36)
--- NOTE | 2019-12-09 12:25 | REP ---
IR Cholecystostomy placement using CT guidance. Clinical information: Acute cholecystitis. Presently not a surgical candidate, therefore referred by surgery. Physician: Dr. Multani. Procedure: The patient was advised of the benefits, risks and alternatives of the procedure and informed consent was obtained. The time-out was performed with verification of the patient's name, MRN, site of procedure and type of procedure to be performed. Moderate sedation was not performed. Fentanyl was administered for analgesia. The physician spent 45 minutes of continuous face to face time with the patient. The patient was placed in the supine position on the CT gantry and a scan was performed through the region of interest. This demonstrates a distended gallbladder with the wall thickening, pericholecystic fluid and radiodense stone like material in the gallbladder. Large right pleural effusion. After marking the overlying skin, the patient was prepped and draped in the usual sterile fashion. The soft tissues overlying the gallbladder puncture site were anesthetized with lidocaine. Through this anesthetized region, an 18 gauge Chiba needle was advanced into the gallbladder under intermittent CT guidance. Brown fluid was aspirated. An Amplatz wire was advanced into the fluid collection over which a 10-Portuguese APDL was advanced. Subsequent localized CT scanning was performed to confirm catheter location. The catheter was then locked, sutured in position and placed to gravity drainage. The patient tolerated the procedure well and was returned to PRU in stable condition. EBL: Less than 5 ml. Complications: None. Conclusion: 1. CT demonstrates distended gallbladder containing stones with pericholecystic fluid and inflammation. 2. Successful CT guided cholecystostomy catheter placement. Catheter requires flushing with 10 ml sterile saline every day. Catheter may be removed at time of surgery otherwise patient to follow up in IR in 8 - 12 weeks for ongoing drain management. Thank you this referral. Electronically Signed by Krista Multani MD 12/09/2019 12:24 P
[2019-12-09 15:03] LABS: BLOOD UREA NITROGEN 21 MG/DL (7-18); CALCIUM LEVEL 8.3 MG/DL (8.8-10.2); CARBON DIOXIDE LEVEL 31 MEQ/L (21-32); CHLORIDE LEVEL 104 MEQ/L (98-107); CREATININE FOR GFR 0.72 MG/DL (0.70-1.30); GLOMERULAR FILTRATION RATE > 60.0 (>35); GLUCOSE, FASTING 112 MG/DL (70-100); MAGNESIUM LEVEL 2.1 MG/DL (1.8-2.4); SODIUM LEVEL 141 MEQ/L (136-145)
[2019-12-09] MEDS ORDERED: METOPROLOL 5 MG/5 ML VIAL IV PRN (15:30)
[2019-12-09] MEDS: ACETAMINOPHEN 650MG ER TAB (TYLENOL ARTHRITIS) PO PRN (17:37)
[2019-12-09] MEDS ORDERED: METOPROLOL 5 MG/5 ML VIAL IV STA (18:57)
[2019-12-09 19:06] LABS: CLOSTRIDIUM DIFFICILE PCR NEGATIVE (NEGATIVE)
[2019-12-09] MEDS: SIMVASTATIN 40 MG TAB PO SCH (21:00)
[2019-12-10] VITALS: BP 141/89
[2019-12-10] MEDS: PIPERACILLIN/TAZOBACTAM SOD 3.375 GM in D5W MINI-BAG PLUS 50 ML IV SCH ×4 (02:58→20:19)
[2019-12-10 04:00] VITALS: BP 139/88
[2019-12-10] MEDS: MORPHINE 4 MG/ML 1ML VIAL/SYRINGE (J2270) IV PRN (04:51)
[2019-12-10] MEDS: SLF 3 ML SYR IV SCH ×3 (05:19→20:31)
[2019-12-10 05:32] LABS: BASO # 0.1 10^3/uL (0.0-0.2); BASO % 0.5 % (0.0-1.0); EOS % 0.1 % (0.0-3.0); HEMATOCRIT 42.3 % (42.0-52.0); HEMOGLOBIN 13.7 g/dl (13.5-17.5); LYMPH # 0.5 10^3/uL (1.5-5.0); LYMPH % 3.1 % (24.0-44.0); MEAN CORPUSCULAR HEMOGLOBIN 30.3 pg (27.0-33.0); MEAN CORPUSCULAR HGB CONC 32.4 g/dl (32.0-36.5); MEAN CORPUSCULAR VOLUME 93.6 fl (80.0-96.0); MONO # 0.5 10^3/uL (0.0-0.8); MONO % 3.3 % (0.0-5.0); NEUTROPHILS # 13.6 10^3/uL (1.5-8.5); NEUTROPHILS % 90.4 % (36.0-66.0); PLATELET COUNT, AUTOMATED 213 10^3/uL (150-450); RED BLOOD COUNT 4.52 10^6/uL (4.30-6.10)
[2019-12-10 06:00] LABS: ALBUMIN 2.3 GM/DL (3.2-5.2); ALT/SGPT 41 U/L (12-78); BILIRUBIN,TOTAL 1.6 MG/DL (0.2-1.0); BLOOD UREA NITROGEN 21 MG/DL (7-18); CALCIUM LEVEL 7.9 MG/DL (8.8-10.2); CARBON DIOXIDE LEVEL 29 MEQ/L (21-32); CHLORIDE LEVEL 106 MEQ/L (98-107); CREATININE FOR GFR 0.68 MG/DL (0.70-1.30); GLOMERULAR FILTRATION RATE > 60.0 (>35); GLUCOSE, FASTING 139 MG/DL (70-100); SODIUM LEVEL 141 MEQ/L (136-145); TOTAL PROTEIN 5.7 GM/DL (6.4-8.2)
[2019-12-10 08:00] VITALS: BP 166/88
[2019-12-10] MEDS: TAMSULOSIN 0.4 MG CAP PO SCH (08:15)
[2019-12-10] MEDS: lisinopriL 10 MG TAB PO SCH (08:15)
[2019-12-10] MEDS: oxyBUTYnin 5 MG TAB PO SCH (08:16)
[2019-12-10] MEDS: METOPROLOL TART 25 MG TABLET PO SCH ×4 (08:16→20:21)
[2019-12-10] MEDS: FINASTERIDE 5 MG TAB PO SCH (08:16)
[2019-12-10 12:00] VITALS: BP 122/82
--- NOTE | 2019-12-10 13:16 | IPN ---
DATE: 12/09/2019 The patient had a slight elevated white count over the weekend. He has been afebrile but he still has a palpable mass on his abdominal exam and underwent a percutaneous cholecystostomy tube today. I am not exactly sure why the cholecystostomy tube was postponed until today, but underwent the procedure today and essentially the patient had a significant amount of pericholecystic fluid and I wonder if some of this was an abscess development in the pericholecystic area. He did have a temperature spike as well as some tachycardia associated with this abscess drainage, which is not surprising. He has been tolerating a diet. However, his albumin still keeps coming down. He is not nauseated today but still is distended, and he states that he had been eating overall relatively well over the weekend. The drainage in the tube at this point is quite dark and appears to be old blood suggesting that he probably had an infected gallbladder which hemorrhaged into the lumen as the most likely abnormality. Currently, he seems to be stable and doing well after drainage. IMPRESSION/PLAN: The patient had an infected gallbladder. Still with its distension I anticipate that drainage should expedite his gradual return of bowel function with the amount of inflammation seen on the CT scan suggesting that there was an ongoing significant infectious process present. With his elevated temperature and tachycardia it also supports this. In any case, at this point, we will see what the cultures of the drainage show and more importantly we will see how he makes some progress over the next 24-48 hours. Typically it takes an extra 48 hours for this to make significant improvements given the localized infection/inflammation that is present and it takes a while for this to resolve. In any case, at this point, it is reasonable to continue on a regular diet. He says he has been eating well, although he still seems some moderately distended and I feel that it is probably reasonable to continue with this, continue with antibiotics and we will see how he is doing in the morning.
[2019-12-10] MEDS ORDERED: LIDOCAINE 1% MDV 20ML VIAL As Ordered ONE (13:44)
[2019-12-10 16:00] VITALS: BP 138/73
--- NOTE | 2019-12-10 16:59 | REP ---
Procedure: PICC line insertion with Parul The procedure was performed under the direct supervision of Dr. Christianson. The risks and benefits of the procedure were explained to the patient and informed consent was obtained. The right basilic vein was localized using ultrasound guidance. The skin was prepped and draped in a sterile fashion. 2% lidocaine was used as a local anesthetic. Using ultrasound guidance the basilic vein was cannulated and a 0.018 guidewire was inserted and advanced to the SVC using fluoroscopic guidance. The needle was removed and a 5.5 Angolan dilator and peel-away sheath was inserted over the guide wire. A 5.5 Angolan dual lumen catheter was cut to length of 40 cm. The dilator was removed and the catheter was inserted over the guide wire with the tip ending in the SVC. The peel-away sheath was removed and the catheter was flushed with heparinized saline as per Hospital protocol. The catheter was affixed to the skin and a sterile dressing was applied. The patient tolerated the procedure well and there were no immediate complications. 0.4 minutes of fluoro time was utilized for this procedure. Electronically Signed by BERKLEY Mac 12/10/2019 04:38 P Electronically Signed by Abraham Christianson MD 12/10/2019 04:50 P
--- NOTE | 2019-12-10 17:14 | IPNPDOC ---
Text Note Date of Service The patient was seen on 12/10/19. NOTE Subjective: Continues to have abdominal discomfort and distention, complaining of regurgitation of stomach secretions all night since removal of the NG tube. Says had a rough night. He says has been passing a little gas. Physical Exam: Vitals: As below General: Awake alert and cooperative, mild discomfort from abdominal distension. HEENT: Normocephalic, atraumatic, moist mucous membranes, anicteric eyes Chest: decreased breath sounds on the right base till mid back, left clear to auscultation CVS: irregularly irregular heart rate, tachycardia, no rub or murmur or gallop Abdomen: distended, tender in the epigastrium and right upper quadrant, hyperperistaltic bowel sounds. Extremities: no edema, no caynosis or clubbing. Neuro: no focal neurodeficit. Labs and Radiology: Reviewed Assessment and Plan: 84 years old man with CAD, s/p AVR with bio prosthetic valve, hypertension, hyperlipidemia, chronic atrial fibrillation, BPH and chronic right pleural effusion who presented to the ED reporting 3 days of abdominal pain, nausea, emesis, bloating and distention. He reported having eaten well with his family on mother's day but had abdominal pain since that dinner that has been waxing and waning which made him come to the ED. In the ED, CT A/P revealed cholelithiasis with associated gall bladder wall thickening and fat stranding c/w cholecystitis, as well as a bladder stone (2.1cm), punctate non-obstructing kidney stones with no hydro and his previously noted large R pleural effusion (recently drained in 08/2019). He was admitted for acute cholecystitis. Acute cholecystitis s/p cholecystostomy drain on 12/09/19 Continue IV antibiotics, Zosyn NG tube was removed. Diet to continue on regular as per surgery Atrial fibrillation with RVR heart rate continues to be uncontrolled due to abdominal pathology , pain metoprolol dose increased. Xarelto on hold Large Recurrent right pleural effusion probably cardiac in origin due to moderate to severe pulmonary hypertension with dilated right heart and right heart failure with mitral regurgitation. IR drainage if symptomatic last drainage in aug 2019. Was seen by Dr Oates at that time and he recommended not not drain it again unless symptomatic. Echo in 2019: Normal left ventricle (LV) size with hyperdynamic LV systolic function. Dilated globally hypokinetic right ventricle. Severe biatrial enlargement (right atrium is much larger than left). Normal function of aortic bioprosthesis. [id number] mitral insufficiency. Severe tricuspid insufficiency. Elevated central venous pressure. RVSP about 55 HTN (hypertension) lisinopril dose reduced as metoprolol has been increased for rate control. Hyperlipemia statin Hypokalemia Resolved CAD S/P CABG continue metoprolol, statin, will restart xarelto when cleared by IR. BPH continue flomax and finasteride H/o kidney stones and ureteral stone H/o Aortic valve replacement H/O Embolic stroke in 2010 no deficits noted. Bilateral carotid artery stenosis. chronic. VS,Fishbone, I+O VS, Fishbone, I+O Laboratory Tests 12/10/19 04:47 Vital Signs Date Time Temp Pulse Resp B/P (MAP) Pulse Ox O2 Delivery O2 Flow Rate FiO2 12/10/19 14:30 89 18 95 Room Air 12/10/19 13:00 147/78 12/10/19 12:00 98.2 12/09/19 12:15 3 I&O- Last 24 Hours up to 6 AM 12/10/19 06:00 Intake Total 945 ml Output Total 265 ml Balance 680 ml NEHEMIAS STEELE MD December 10, 2019 17:14
[2019-12-10] MEDS: SODIUM CHLORIDE 0.9% INJ 10 ML SYR IV SCH (17:51)
[2019-12-10] MEDS ORDERED: FAT EMULSION IV 20% 500 ML IV SCH (18:00)
[2019-12-10] MEDS ORDERED: AMINO AC/ELECTROLYTE/DEX/CALC 2,000 ML IV SCH (18:00)
[2019-12-10 20:00] VITALS: BP 164/98
[2019-12-10] MEDS: NORCO, ANEXSIA 5/325MG TABLET (HYDROcodone/ACETAMINOPHEN) PO PRN (20:25)
[2019-12-10] MEDS: SIMVASTATIN 40 MG TAB PO SCH (20:31)
[2019-12-11] VITALS: BP 112/72
[2019-12-11] MEDS: PIPERACILLIN/TAZOBACTAM SOD 3.375 GM in D5W MINI-BAG PLUS 50 ML IV SCH ×4 (02:39→20:26)
--- NOTE | 2019-12-11 02:49 | IPN ---
DATE: 12/10/2019 Patient did have a temperature spike yesterday. However, he has been afebrile today. His heart rate has come down nicely during the day today. Initially this morning, it was elevated, all consistent with drainage of an abscess/infected gallbladder. 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 Yesterday, it was definitely dark, old blood, now has some minimal bile color to it. He overall still does not complain of any abdominal pain or discomfort but does feel some pressure. He states that today he has been a little bit more nauseated and is not as hungry. His abdomen is soft. His drain is draining. There is a nontender abdomen. No guarding. No rebound. It is a little bit softer than it was yesterday but still tympanitic across the upper abdomen. IMPRESSION/PLAN: Clinically, his abdomen looks a little better, but he is not feeling any better. I do feel that it has been a while since he has had some regular food and even though he said he has been eating well with his albumin decrease yesterday, I do feel that it is reasonable to start him on some total parenteral nutrition (TPN) at this time and continue him on his antibiotic treatment. He understands our current plan. I anticipate if the rest of this infection follows suit with his heart rate dropping, at this point with his blood pressure looking good, that he should have some significant improvement from a gastrointestinal (GI) standpoint and overall feeling better within the next 24-36 hours. We will see how he is doing depending (cut off).
[2019-12-11 04:00] VITALS: BP 158/98
[2019-12-11 04:28] LABS: HEMATOCRIT 42.3 % (42.0-52.0); HEMOGLOBIN 13.8 g/dl (13.5-17.5); MEAN CORPUSCULAR HEMOGLOBIN 30.8 pg (27.0-33.0); MEAN CORPUSCULAR HGB CONC 32.6 g/dl (32.0-36.5); MEAN CORPUSCULAR VOLUME 94.4 fl (80.0-96.0); PLATELET COUNT, AUTOMATED 223 10^3/uL (150-450); RED BLOOD COUNT 4.48 10^6/uL (4.30-6.10); WHITE BLOOD COUNT 12.8 10^3/uL (4.0-10.0)
[2019-12-11 04:51] LABS: BLOOD UREA NITROGEN 23 MG/DL (7-18); CARBON DIOXIDE LEVEL 29 MEQ/L (21-32); CHLORIDE LEVEL 103 MEQ/L (98-107); CREATININE FOR GFR 0.71 MG/DL (0.70-1.30); GLOMERULAR FILTRATION RATE > 60.0 (>35); GLUCOSE, FASTING 203 MG/DL (70-100); MAGNESIUM LEVEL 2.2 MG/DL (1.8-2.4); PHOSPHORUS LEVEL 2.7 MG/DL (2.5-4.9); SODIUM LEVEL 139 MEQ/L (136-145)
[2019-12-11] MEDS: SODIUM CHLORIDE 0.9% INJ 10 ML SYR IV SCH ×2 (06:37→17:40)
[2019-12-11] MEDS: SLF 3 ML SYR IV SCH ×3 (06:38→20:27)
[2019-12-11 08:00] VITALS: BP 164/96
[2019-12-11] MEDS: FINASTERIDE 5 MG TAB PO SCH ×2 (09:00→09:24)
[2019-12-11] MEDS: TAMSULOSIN 0.4 MG CAP PO SCH ×2 (09:00→09:25)
[2019-12-11] MEDS ORDERED: FUROSEMIDE 40MG/4ML VIAL (J1940) IV ONE (09:00)
[2019-12-11] MEDS: METOPROLOL TART 25 MG TABLET PO SCH ×4 (09:25→20:26)
[2019-12-11] MEDS: oxyBUTYnin 5 MG TAB PO SCH (09:25)
[2019-12-11] MEDS: lisinopriL 10 MG TAB PO SCH (09:25)
--- NOTE | 2019-12-11 11:34 | IPNPDOC ---
Text Note Date of Service The patient was seen on 12/11/19. NOTE Subjective: Says the abdomen feels a little better today, did have small bowel movement, but still uncomfortable. Did complain of feeling SOB though his oxygenation is fine. He also complains of a pain in the esophagus when he is swallowing. Spoke with Cheri today and updated her on the patient. He got some [place] yesterday which helped. Physical Exam: Vitals: As below General: Awake alert and cooperative, mild discomfort from abdominal distension. HEENT: Normocephalic, atraumatic, moist mucous membranes, anicteric eyes , No oral thrush. Chest: decreased breath sounds on the right base till mid back, left clear to auscultation CVS: irregularly irregular heart rate, tachycardia, no rub or murmur or gallop Abdomen: distended, tender in the epigastrium and right upper quadrant, hyperperistaltic bowel sounds. Extremities: no edema, no cyanosis or clubbing. Neuro: no focal neurodeficit. Labs and Radiology: Reviewed Assessment and Plan: 84 years old man with CAD, s/p AVR with bio prosthetic valve, hypertension, hyperlipidemia, chronic atrial fibrillation, BPH and chronic right pleural effusion who presented to the ED reporting 3 days of abdominal pain, nausea, emesis, bloating and distention. He reported having eaten well with his family on mother's day but had abdominal pain since that dinner that has been waxing and waning which made him come to the ED. In the ED, CT A/P revealed cholelithiasis with associated gall bladder wall thickening and fat stranding c/w cholecystitis, as well as a bladder stone (2.1cm), punctate non-obstructing kidney stones with no hydro and his previously noted large R pleural effusion (recently drained in 08/2019). He was admitted for acute cholecystitis. Acute cholecystitis s/p cholecystostomy drain on 12/09/19 Continue IV antibiotics, Zosyn NG tube was removed. Diet to continue on regular as per surgery Protein calorie malnutrition Has low albumin, poor oral intake for several days Started on TPN. Atrial fibrillation with RVR heart rate continues to be uncontrolled due to abdominal pathology , pain metoprolol dose increased. Xarelto on hold follows with Dr Salgado in [place]. If heart rate does not get better controlled will consult our cardiology. Large Recurrent right pleural effusion probably cardiac in origin due to moderate to severe pulmonary hypertension with dilated right heart and right heart failure with mitral regurgitation. IR drainage if symptomatic last drainage in aug 2019. Was seen by Dr Oates at that time and he recommended not not drain it again unless symptomatic. Echo in 2020: Normal left ventricle (LV) size with hyperdynamic LV systolic function. Dilated globally hypokinetic right ventricle. Severe biatrial enlargement (right atrium is much larger than left). Normal function of aortic bioprosthesis. [id number] mitral insufficiency. Severe tricuspid insufficiency. Elevated central venous pressure. RVSP about 55 Will give IV Lasix once. Discussed with Dr Oates about needing drainge at present or not. He is going to review his previous xrays and get back to me. HTN (hypertension) lisinopril dose reduced as metoprolol has been increased for rate control. Hyperlipemia statin Hypokalemia Resolved CAD S/P CABG continue metoprolol, statin, will restart xarelto when cleared by IR. BPH continue flomax and finasteride H/o kidney stones and ureteral stone H/o Aortic valve replacement H/O Embolic stroke in 2010 no deficits noted. Bilateral carotid artery stenosis. chronic. VS,Fishbone, I+O VS, Fishbone, I+O Laboratory Tests 12/11/19 03:54 Vital Signs Date Time Temp Pulse Resp B/P (MAP) Pulse Ox O2 Delivery O2 Flow Rate FiO2 12/11/19 08:00 97.9 93 16 164/96 (118) 97 Room Air 12/09/19 12:15 3 I&O- Last 24 Hours up to 6 AM 12/11/19 06:00 Intake Total 1640 ml Output Total 350 ml Balance 1290 ml NEHEMIAS STEELE MD December 11, 2019 11:34
[2019-12-11 12:00] VITALS: BP 166/90
[2019-12-11] MEDS ORDERED: MAALOX 30 ML SUSP *UDC PO ONE (14:30)
[2019-12-11] MEDS ORDERED: MAALOX 30 ML SUSP *UDC PO PRN (14:30)
[2019-12-11 16:00] VITALS: BP 162/88
[2019-12-11] MEDS ORDERED: FAT EMULSION IV 20% 500 ML IV SCH (18:00)
[2019-12-11] MEDS ORDERED: AMINO AC/ELECTROLYTE/DEX/CALC 2,000 ML IV SCH (18:00)
[2019-12-11 20:00] VITALS: BP 132/84
[2019-12-11] MEDS: SIMVASTATIN 40 MG TAB PO SCH (20:17)
[2019-12-11] MEDS: PANTOPRAZOLE 40MG VIAL (C9113 PER 1) IV SCH (20:26)
[2019-12-11] MEDS: SUCRALFATE SUSP 1GM/10ML UD PO SCH (20:26)
[2019-12-11] MEDS: NORCO, ANEXSIA 5/325MG TABLET (HYDROcodone/ACETAMINOPHEN) PO PRN (20:28)
[2019-12-12] VITALS: BP 136/74
[2019-12-12] MEDS: PIPERACILLIN/TAZOBACTAM SOD 3.375 GM in D5W MINI-BAG PLUS 50 ML IV SCH ×4 (02:07→20:05)
[2019-12-12 04:00] VITALS: BP 142/72
[2019-12-12] MEDS: SLF 3 ML SYR IV SCH ×3 (05:36→22:06)
[2019-12-12] MEDS: SODIUM CHLORIDE 0.9% INJ 10 ML SYR IV SCH ×2 (05:36→17:08)
[2019-12-12] MEDS: NORCO, ANEXSIA 5/325MG TABLET (HYDROcodone/ACETAMINOPHEN) PO PRN ×2 (05:48→17:06)
[2019-12-12 07:35] VITALS: BP 158/70
[2019-12-12] MEDS: SUCRALFATE SUSP 1GM/10ML UD PO SCH ×4 (07:53→20:03)
[2019-12-12 07:58] LABS: BASO # 0.1 10^3/uL (0.0-0.2); BASO % 0.7 % (0.0-1.0); EOS # 0.1 10^3/uL (0.0-0.5); EOS % 0.7 % (0.0-3.0); HEMATOCRIT 43.5 % (42.0-52.0); HEMOGLOBIN 14.2 g/dl (13.5-17.5); LYMPH # 0.7 10^3/uL (1.5-5.0); LYMPH % 6.2 % (24.0-44.0); MEAN CORPUSCULAR HEMOGLOBIN 30.6 pg (27.0-33.0); MEAN CORPUSCULAR HGB CONC 32.6 g/dl (32.0-36.5); MEAN CORPUSCULAR VOLUME 93.8 fl (80.0-96.0); MONO # 0.6 10^3/uL (0.0-0.8); MONO % 5.8 % (0.0-5.0); NEUTROPHILS # 8.8 10^3/uL (1.5-8.5); NEUTROPHILS % 82.4 % (36.0-66.0); PLATELET COUNT, AUTOMATED 225 10^3/uL (150-450); RED BLOOD COUNT 4.64 10^6/uL (4.30-6.10); WHITE BLOOD COUNT 10.7 10^3/uL (4.0-10.0)
[2019-12-12] MEDS: TAMSULOSIN 0.4 MG CAP PO SCH (08:00)
[2019-12-12] MEDS: oxyBUTYnin 5 MG TAB PO SCH (08:00)
[2019-12-12] MEDS: FINASTERIDE 5 MG TAB PO SCH (08:00)
[2019-12-12] MEDS: FUROSEMIDE 40MG/4ML VIAL (J1940) IV SCH (08:00)
[2019-12-12] MEDS: lisinopriL 10 MG TAB PO SCH (08:01)
[2019-12-12] MEDS: METOPROLOL TART 25 MG TABLET PO SCH (08:01)
[2019-12-12 08:22] LABS: ALBUMIN 2.3 GM/DL (3.2-5.2); ALT/SGPT 42 U/L (12-78); BILIRUBIN,TOTAL 1.1 MG/DL (0.2-1.0); BLOOD UREA NITROGEN 22 MG/DL (7-18); CARBON DIOXIDE LEVEL 34 MEQ/L (21-32); CHLORIDE LEVEL 99 MEQ/L (98-107); CREATININE FOR GFR 0.73 MG/DL (0.70-1.30); GLOMERULAR FILTRATION RATE > 60.0 (>35); GLUCOSE, FASTING 126 MG/DL (70-100); POTASSIUM SERUM 3.8 MEQ/L (3.5-5.1); SODIUM LEVEL 139 MEQ/L (136-145)
--- NOTE | 2019-12-12 11:14 | IPNPDOC ---
Text Note Date of Service The patient was seen on 12/12/19. NOTE Subjective: Says feels much better today. He had a good breakfast and his belly distention is less. Also says the pain with swallowing that he was having has improved. No fever or chills, His Heart rate is getting better controlled. Now mostly in 80 to 100 range going upto 120s when ambulating or during activities. Physical Exam: Vitals: As below General: Awake alert and cooperative, mild discomfort from abdominal distension. HEENT: Normocephalic, atraumatic, moist mucous membranes, anicteric eyes , No oral thrush. Chest: decreased breath sounds on the right base till mid back, left clear to auscultation CVS: irregularly irregular heart rate, no rub or murmur or gallop Abdomen: mildly distended, mildly tender in the epigastrium and right upper quadrant, normal bowel sounds. Extremities: no edema, no cyanosis or clubbing. Neuro: no focal neurodeficit. Labs and Radiology: Reviewed Assessment and Plan: 84 years old man with CAD, s/p AVR with bio prosthetic valve, hypertension, hyperlipidemia, chronic atrial fibrillation, BPH and chronic right pleural effusion who presented to the ED reporting 3 days of abdominal pain, nausea, emesis, bloating and distention. He reported having eaten well with his family on mother's day but had abdominal pain since that dinner that has been waxing and waning which made him come to the ED. In the ED, CT A/P revealed cholelithiasis with associated gall bladder wall thickening and fat stranding c/w cholecystitis, as well as a bladder stone (2.1cm), punctate non-obstructing kidney stones with no hydro and his previously noted large R pleural effusion (recently drained in 08/2019). He was admitted for acute cholecystitis. Acute cholecystitis s/p cholecystostomy drain on 12/09/19 Continue IV antibiotics, Zosyn NG tube was removed. Diet to continue on regular as per surgery Protein calorie malnutrition Has low albumin, poor oral intake for several days Started on TPN. Atrial fibrillation with RVR hear rate better controlled but still not optimal will change metoprolol to atenolol for better heart rate control. Restart Xarelto follows with Dr Salgado in [place]. Large Recurrent right pleural effusion probably cardiac in origin due to moderate to severe pulmonary hypertension with dilated right heart and right heart failure with mitral regurgitation. IR drainage if symptomatic last drainage in aug 2019. Was seen by Dr Oates at that time and he recommended not not drain it again unless symptomatic. Echo in 2019: Normal left ventricle (LV) size with hyperdynamic LV systolic function. Dilated globally hypokinetic right ventricle. Severe biatrial enlargement (right atrium is much larger than left). Normal function of aortic bioprosthesis. [id number] mitral insufficiency. Severe tricuspid insufficiency. Elevated central venous pressure. RVSP about [address] Oates and per him the efussion is about the same size as in August and does not need to be drained if not SOB. Patient tells me he has an appointment with a lung specialist in [place] for this. HTN (hypertension) lisinopril dose reduced will change metoprolol to atenolol. Hyperlipemia statin Hypokalemia Resolved CAD S/P CABG continue metoprolol, statin, will restart xarelto when cleared by IR. BPH continue flomax and finasteride H/o kidney stones and ureteral stone H/o Aortic valve replacement H/O Embolic stroke in 2010 no deficits noted. Bilateral carotid artery stenosis. chronic. VS,Fishbone, I+O VS, Fishbone, I+O Laboratory Tests 12/12/19 07:34 Vital Signs Date Time Temp Pulse Resp B/P (MAP) Pulse Ox O2 Delivery O2 Flow Rate FiO2 12/12/19 08:01 117 12/12/19 07:35 97.5 20 158/70 (99) 98 Room Air 12/09/19 12:15 3 I&O- Last 24 Hours up to 6 AM 12/12/19 06:00 Intake Total 2200 ml Output Total 2230 ml Balance -30 ml NEHEMIAS STEELE MD December 12, 2019 11:14
[2019-12-12 12:12] VITALS: BP 159/77
[2019-12-12] MEDS: atenoloL 25 MG TAB PO SCH ×2 (12:21→20:09)
[2019-12-12 13:34] VITALS: BP 134/76
[2019-12-12] MEDS: SODIUM CHLORIDE 0.9% INJ 10 ML SYR IV PRN ×2 (14:51→21:58)
[2019-12-12] MEDS: RIVAROXABAN 20 MG TAB (XARELTO) PO SCH (17:05)
[2019-12-12] MEDS: SIMVASTATIN 40 MG TAB PO SCH (20:03)
[2019-12-12] MEDS: PANTOPRAZOLE 40MG VIAL (C9113 PER 1) IV SCH (20:05)
[2019-12-12 22:00] VITALS: BP 133/76
[2019-12-13] MEDS: PIPERACILLIN/TAZOBACTAM SOD 3.375 GM in D5W MINI-BAG PLUS 50 ML IV SCH ×4 (02:17→20:04)
[2019-12-13] MEDS: SODIUM CHLORIDE 0.9% INJ 10 ML SYR IV PRN (03:38)
[2019-12-13] MEDS: SODIUM CHLORIDE 0.9% INJ 10 ML SYR IV SCH ×2 (05:37→17:39)
[2019-12-13] MEDS: SLF 3 ML SYR IV SCH ×3 (05:37→20:05)
[2019-12-13] MEDS: NORCO, ANEXSIA 5/325MG TABLET (HYDROcodone/ACETAMINOPHEN) PO PRN ×4 (05:38→21:26)
[2019-12-13 06:00] VITALS: BP 167/58
[2019-12-13 07:06] LABS: HEMATOCRIT 39.6 % (42.0-52.0); MEAN CORPUSCULAR HEMOGLOBIN 30.7 pg (27.0-33.0); MEAN CORPUSCULAR HGB CONC 32.8 g/dl (32.0-36.5); MEAN CORPUSCULAR VOLUME 93.6 fl (80.0-96.0); PLATELET COUNT, AUTOMATED 226 10^3/uL (150-450); RED BLOOD COUNT 4.23 10^6/uL (4.30-6.10); WHITE BLOOD COUNT 11.1 10^3/uL (4.0-10.0)
[2019-12-13 07:39] LABS: BLOOD UREA NITROGEN 27 MG/DL (7-18); CALCIUM LEVEL 7.9 MG/DL (8.8-10.2); CARBON DIOXIDE LEVEL 34 MEQ/L (21-32); CHLORIDE LEVEL 100 MEQ/L (98-107); CREATININE FOR GFR 0.84 MG/DL (0.70-1.30); GLOMERULAR FILTRATION RATE > 60.0 (>35); GLUCOSE, FASTING 86 MG/DL (70-100); POTASSIUM SERUM 4.2 MEQ/L (3.5-5.1); SODIUM LEVEL 139 MEQ/L (136-145)
[2019-12-13 07:40] LABS: EOSINOPHILS 2 % (0-3); LYMPHOCYTES 10 % (16-44); MONOCYTES 1 % (0-5); NEUTROPHILS 83 % (28-66)
[2019-12-13 07:41] LABS: PLATELET ESTIMATE NORMAL (NORMAL)
[2019-12-13] MEDS: SUCRALFATE SUSP 1GM/10ML UD PO SCH ×5 (07:51→20:17)
[2019-12-13] MEDS: FINASTERIDE 5 MG TAB PO SCH (08:55)
[2019-12-13] MEDS: FUROSEMIDE 40MG/4ML VIAL (J1940) IV SCH (08:55)
[2019-12-13] MEDS: oxyBUTYnin 5 MG TAB PO SCH (08:55)
[2019-12-13] MEDS: TAMSULOSIN 0.4 MG CAP PO SCH (08:55)
[2019-12-13] MEDS: atenoloL 25 MG TAB PO SCH ×2 (08:57→20:05)
[2019-12-13] MEDS: lisinopriL 10 MG TAB PO SCH (08:58)
--- NOTE | 2019-12-13 10:41 | IPNPDOC ---
Text Note Date of Service The patient was seen on 12/13/19. NOTE Subjective: Says feels much better today. He had a good breakfast and his belly distention is less. Pulse rate better controlled. No fever or chills. Oral intake is improving. Physical Exam: Vitals: As below General: Awake alert and cooperative, comfortable HEENT: Normocephalic, atraumatic, moist mucous membranes, anicteric eyes , No oral thrush. Chest: decreased breath sounds on the right base till mid back, left clear to auscultation CVS: irregularly irregular heart rate, no rub or murmur or gallop Abdomen: mildly distended, mildly tender in the epigastrium and right upper quadrant, hyperperistaltic bowel sounds. Extremities: no edema, no cyanosis or clubbing. Neuro: no focal neurodeficit. Labs and Radiology: Reviewed Assessment and Plan: 84 years old man with CAD s/p CABG, s/p AVR with bio prosthetic valve, hypertension, hyperlipidemia, chronic atrial fibrillation, BPH and chronic right pleural effusion who presented to the ED reporting 3 days of abdominal pain, nausea, emesis, bloating and distention. He reported having eaten well with his family on mother's day but had abdominal pain since that dinner that has been waxing and waning which made him come to the ED. In the ED, CT A/P revealed cholelithiasis with associated gall bladder wall thickening and fat stranding c/w cholecystitis, as well as a bladder stone (2.1cm), punctate non-obstructing kidney stones with no hydro and his previously noted large R pleural effusion (recently drained in 08/2019). He was admitted for acute cholecystitis. Acute cholecystitis s/p cholecystostomy drain on 12/09/19 Continue IV antibiotics, Zosyn Protein calorie malnutrition Has low albumin, poor oral intake for several days now off TPN. Atrial fibrillation with RVR hear rate better controlled but still not optimal changed metoprolol to atenolol for better heart rate control. Restarted Xarelto follows with Dr Sal[place]. Large Recurrent right pleural effusion probably cardiac in origin due to moderate to severe pulmonary hypertension with dilated right heart and right heart failure with mitral regurgitation. IR drainage if symptomatic last drainage in aug 2019. Was seen by Dr Oates at that time and he recommended not not drain it again unless symptomatic. Echo in 2019: Normal left ventricle (LV) size with hyperdynamic LV systolic function. Dilated globally hypokinetic right ventricle. Severe biatrial enlargement (right atrium is much larger than left). Normal function of aortic bioprosthesis. [id number] mitral insufficiency. Severe tricuspid insufficiency. Elevated central venous pressure. RVSP about [address] Oates and per him the effusion is about the same size as in August and does not need to be drained if not SOB. Patient tells me he has an appointment with a lung specialist in [place] for [place]. HTN (hypertension) lisinopril dose reduced metoprolol to atenolol. Hyperlipemia statin Hypokalemia Resolved CAD S/P CABG continue betablocker, statin and xarelto BPH continue flomax and finasteride H/o kidney stones and ureteral stone H/o Aortic valve replacement H/O Embolic stroke in 2010 no deficits noted. Bilateral carotid artery stenosis. chronic. VS,Fishbone, I+O VS, Fishbone, I+O Laboratory Tests 12/13/19 06:12 Vital Signs Date Time Temp Pulse Resp B/P (MAP) Pulse Ox O2 Delivery O2 Flow Rate FiO2 12/13/19 08:57 111 125/86 12/13/19 06:08 18 Room Air 12/13/19 06:00 97.9 97 12/09/19 12:15 3 I&O- Last 24 Hours up to 6 AM 12/13/19 06:00 Intake Total 1100 ml Output Total 1992 ml Balance -892 ml NEHEMIAS STEELE MD December 13, 2019 10:41
--- NOTE | 2019-12-13 12:32 | IPN ---
DATE: 12/13/2019 Subjectively, the patient was transferred from progressive care unit (PCU) up to the fourth floor. States that he has been having some bowel movements, tolerating a regular diet. He said no nausea, no vomiting. No abdominal pain. States his dysphagia is better than it was before hand. He had been taking pain medication because of his dysphagia. It sounds as though it may be a nasogastric (NG) tube related as the most likely etiology. Although he states he has been doing better with eating. His drain has been draining less over the last 24 hours but still has bilious drainage and is not complaining of any increasing pain or discomfort. VITAL SIGNS: He has had no fevers from vital signs. He has been stable. His blood pressures has been up and down ss it has been over the last several days. PHYSICAL EXAMINATION: On his physical exam his abdomen is soft, nondistended, nontender. No guarding. No rebound or peritoneal signs are appreciated. His drain site is clean and dry. He has bilious drainage from his drain and there is some stones within the drainage tube itself. IMPRESSION AND PLAN: The patient is status post cholecystostomy tube and has been very slow to progress/improved. But overall he seems to be slowly making some progress. His white count is slightly elevated today and I do feel that given the drainage of his gallbladder and the recurrent drainage all looks good that we can continue monitoring him and see how he does over the next 12-24 hours. His white count is increasing and I would recommend repeating a CT scan. But otherwise it seems that were making some slow but progressive improvement.
[2019-12-13 14:00] VITALS: BP 121/83
[2019-12-13] MEDS: RIVAROXABAN 20 MG TAB (XARELTO) PO SCH (17:37)
[2019-12-13] MEDS: PANTOPRAZOLE 40MG VIAL (C9113 PER 1) IV SCH (20:04)
[2019-12-13] MEDS: SIMVASTATIN 40 MG TAB PO SCH (20:04)
[2019-12-13 22:00] VITALS: BP 118/83
[2019-12-14] MEDS: PIPERACILLIN/TAZOBACTAM SOD 3.375 GM in D5W MINI-BAG PLUS 50 ML IV SCH ×4 (02:10→20:03)
[2019-12-14 06:00] VITALS: BP 147/90
[2019-12-14] MEDS: SODIUM CHLORIDE 0.9% INJ 10 ML SYR IV SCH ×2 (06:11→17:59)
[2019-12-14] MEDS: NORCO, ANEXSIA 5/325MG TABLET (HYDROcodone/ACETAMINOPHEN) PO PRN ×2 (06:11→12:02)
[2019-12-14] MEDS: SLF 3 ML SYR IV SCH (06:15)
[2019-12-14 06:25] LABS: HEMATOCRIT 38.3 % (42.0-52.0); HEMOGLOBIN 12.8 g/dl (13.5-17.5); MEAN CORPUSCULAR HEMOGLOBIN 30.9 pg (27.0-33.0); MEAN CORPUSCULAR HGB CONC 33.4 g/dl (32.0-36.5); MEAN CORPUSCULAR VOLUME 92.5 fl (80.0-96.0); PLATELET COUNT, AUTOMATED 226 10^3/uL (150-450); RED BLOOD COUNT 4.14 10^6/uL (4.30-6.10); WHITE BLOOD COUNT 9.3 10^3/uL (4.0-10.0)
[2019-12-14 06:45] LABS: BLOOD UREA NITROGEN 29 MG/DL (7-18); CREATININE FOR GFR 0.84 MG/DL (0.70-1.30); GLUCOSE, FASTING 102 MG/DL (70-100)
[2019-12-14 06:46] LABS: CALCIUM LEVEL 8.1 MG/DL (8.8-10.2); CARBON DIOXIDE LEVEL 33 MEQ/L (21-32); CHLORIDE LEVEL 102 MEQ/L (98-107); GLOMERULAR FILTRATION RATE > 60.0 (>35); POTASSIUM SERUM 3.5 MEQ/L (3.5-5.1); SODIUM LEVEL 140 MEQ/L (136-145)
[2019-12-14] MEDS: SUCRALFATE SUSP 1GM/10ML UD PO SCH ×4 (07:30→20:04)
[2019-12-14 07:41] LABS: EOSINOPHILS 1 % (0-3); LYMPHOCYTES 6 % (16-44); METAMYELOCYTES 1 % (0-0); MONOCYTES 10 % (0-5); MYELOCYTES 2 % (0-0); NEUTROPHILS 79 % (28-66); PLATELET ESTIMATE NORMAL (NORMAL)
[2019-12-14 07:45] LABS: ANISOCYTOSIS 1+; OVALOCYTES 1+
[2019-12-14] MEDS: lisinopriL 10 MG TAB PO SCH (08:08)
[2019-12-14] MEDS: oxyBUTYnin 5 MG TAB PO SCH (08:16)
[2019-12-14] MEDS: atenoloL 25 MG TAB PO SCH ×2 (08:17→20:04)
[2019-12-14] MEDS: TAMSULOSIN 0.4 MG CAP PO SCH (08:17)
[2019-12-14] MEDS: FINASTERIDE 5 MG TAB PO SCH (08:17)
--- NOTE | 2019-12-14 09:01 | IPNPDOC ---
Text Note Date of Service The patient was seen on 12/14/19. NOTE Subjective: Says feels good today. Slept well. He had a good breakfast. Heart rate controlled overnight. Telemetry dced. No fever or chills. Oral intake is improving. Having bowel movements , last one was yesterday afternoon. Physical Exam: Vitals: As below General: Awake alert and cooperative, comfortable HEENT: Normocephalic, atraumatic, moist mucous membranes, anicteric eyes , No oral thrush. Chest: decreased breath sounds on the right base till mid back, left clear to auscultation CVS: irregularly irregular heart rate, no rub or gallop, soft systolic murmur in the parasternal area heard. Abdomen: mildly distended, nontender , cholecystostomy drain present, normal bowel sounds. Extremities: no edema, no cyanosis or clubbing. Neuro: no focal neurodeficit. Labs and Radiology: Reviewed Assessment and Plan: 84 years old man with CAD s/p CABG, s/p AVR with bio prosthetic valve, hypertension, hyperlipidemia, chronic atrial fibrillation, BPH and chronic right pleural effusion who presented to the ED reporting 3 days of abdominal pain, nausea, emesis, bloating and distention. He reported having eaten well with his family on mother's day but had abdominal pain since that dinner that has been waxing and waning which made him come to the ED. In the ED, CT A/P revealed cholelithiasis with associated gall bladder wall thickening and fat stranding c/w cholecystitis, as well as a bladder stone (2.1cm), punctate non-obstructing kidney stones with no hydro and his previously noted large R pleural effusion (recently drained in 08/2019). He was admitted for acute cholecystitis. Acute cholecystitis s/p cholecystostomy drain on 12/09/19 Continue IV antibiotics, Zosyn Protein calorie malnutrition Has low albumin, poor oral intake for several days now off TPN. Improving oral intake. Atrial fibrillation with RVR hear rate now controlled. changed metoprolol to atenolol for better heart rate control. Restarted Xarelto follows with Dr Salgado in [place]. Large Recurrent right pleural effusion probably cardiac in origin due to moderate to severe pulmonary hypertension with dilated right heart and right heart failure with mitral regurgitation. IR drainage if symptomatic last drainage in aug 2019. Was seen by Dr Oates at that time and he recommended not not drain it again unless symptomatic. Echo in 2019: Normal left ventricle (LV) size with hyperdynamic LV systolic function. Dilated globally hypokinetic right ventricle. Severe biatrial enlargement (right atrium is much larger than left). Normal function of aortic bioprosthesis. [id number] mitral insufficiency. Severe tricuspid insufficiency. Elevated central venous pressure. RVSP about [address] Oates and per him the effusion is about the same size as in August and does not need to be drained if not SOB. Patient tells me he has an appointment with a lung specialist in [place] for this. HTN (hypertension) lisinopril dose reduced metoprolol changed to atenolol. Hyperlipemia statin Hypokalemia Resolved CAD S/P CABG continue betablocker, statin and xarelto BPH continue flomax and finasteride H/o kidney stones and ureteral stone H/o Aortic valve replacement H/O Embolic stroke in 2010 no deficits noted. Bilateral carotid artery stenosis. chronic. VS,Fishbone, I+O VS, Fishbone, I+O Laboratory Tests 12/14/19 05:41 Vital Signs Date Time Temp Pulse Resp B/P (MAP) Pulse Ox O2 Delivery O2 Flow Rate FiO2 12/14/19 08:17 97 118/70 12/14/19 06:41 20 12/14/19 06:00 97.3 97 12/13/19 22:00 Room Air 12/09/19 12:15 3 I&O- Last 24 Hours up to 6 AM 12/14/19 06:00 Intake Total 680 ml Output Total 800 ml Balance -120 ml NEHEMIAS STEELE MD December 14, 2019 09:01
--- NOTE | 2019-12-14 09:37 | IPN ---
DATE: 12/14/2019 Overall, he is looking much better today. He feels better today. His drain has been putting out minimal, and I irrigated the drain and there are still some minimal stones in it but otherwise some minimal bile coming back. He does not have any significant abdominal pain. He is tolerating a regular diet, and his white count is coming down to normal at this time. His abdomen is otherwise soft, nontender. His drain is in place. IMPRESSION/PLAN: Patient seems to be making some good progress at this time. I do feel that we can probably arrange for him to be discharged home with the drain in place on Monday and followup in my office in 1 week, but otherwise he is making some good progress and we will see if this drain can be removed in the next couple weeks and then plan for an outpatient laparoscopic cholecystectomy. He does have the pleural effusion on the right-hand side that needed some workup, and it would be beneficial to have this performed prior to operative intervention. He has an appointment with someone in [place] that was postponed because of the COVID crisis, but I am not sure if he has rescheduled that as of yet and will discuss this prior to discharge, etc. In any case, continue with antibiotics at this time.
[2019-12-14] MEDS: SODIUM CHLORIDE 0.9% INJ 10 ML SYR IV PRN ×3 (09:42→21:35)
[2019-12-14 14:00] VITALS: BP 125/80
[2019-12-14] MEDS: RIVAROXABAN 20 MG TAB (XARELTO) PO SCH (17:59)
[2019-12-14] MEDS: PANTOPRAZOLE 40MG VIAL (C9113 PER 1) IV SCH (20:03)
[2019-12-14] MEDS: SIMVASTATIN 40 MG TAB PO SCH (20:04)
[2019-12-14 22:00] VITALS: BP 121/77
[2019-12-15] MEDS: PIPERACILLIN/TAZOBACTAM SOD 3.375 GM in D5W MINI-BAG PLUS 50 ML IV SCH ×4 (02:21→20:11)
[2019-12-15] MEDS: SODIUM CHLORIDE 0.9% INJ 10 ML SYR IV PRN ×3 (03:50→21:53)
[2019-12-15] MEDS: SODIUM CHLORIDE 0.9% INJ 10 ML SYR IV SCH ×2 (05:20→18:00)
[2019-12-15 06:00] VITALS: BP 153/97
[2019-12-15 06:27] LABS: BASO # 0.1 10^3/uL (0.0-0.2); BASO % 0.7 % (0.0-1.0); EOS # 0.2 10^3/uL (0.0-0.5); EOS % 1.7 % (0.0-3.0); HEMATOCRIT 40.1 % (42.0-52.0); HEMOGLOBIN 13.4 g/dl (13.5-17.5); LYMPH # 1.1 10^3/uL (1.5-5.0); LYMPH % 11.7 % (24.0-44.0); MEAN CORPUSCULAR HEMOGLOBIN 31.2 pg (27.0-33.0); MEAN CORPUSCULAR HGB CONC 33.4 g/dl (32.0-36.5); MEAN CORPUSCULAR VOLUME 93.3 fl (80.0-96.0); MONO # 0.7 10^3/uL (0.0-0.8); MONO % 7.9 % (0.0-5.0); NEUTROPHILS # 6.6 10^3/uL (1.5-8.5); NEUTROPHILS % 73.2 % (36.0-66.0); PLATELET COUNT, AUTOMATED 259 10^3/uL (150-450)
[2019-12-15 06:57] LABS: BLOOD UREA NITROGEN 26 MG/DL (7-18); CALCIUM LEVEL 8.3 MG/DL (8.8-10.2); CARBON DIOXIDE LEVEL 31 MEQ/L (21-32); CHLORIDE LEVEL 104 MEQ/L (98-107); CREATININE FOR GFR 0.81 MG/DL (0.70-1.30); GLOMERULAR FILTRATION RATE > 60.0 (>35); GLUCOSE, FASTING 101 MG/DL (70-100); POTASSIUM SERUM 4.3 MEQ/L (3.5-5.1); SODIUM LEVEL 138 MEQ/L (136-145)
[2019-12-15] MEDS: SUCRALFATE SUSP 1GM/10ML UD PO SCH ×4 (07:30→20:11)
[2019-12-15] MEDS: TAMSULOSIN 0.4 MG CAP PO SCH (08:17)
[2019-12-15] MEDS: oxyBUTYnin 5 MG TAB PO SCH (08:17)
[2019-12-15] MEDS: FINASTERIDE 5 MG TAB PO SCH (08:18)
[2019-12-15] MEDS: FUROSEMIDE 20 MG TAB PO SCH (08:18)
[2019-12-15] MEDS: lisinopriL 10 MG TAB PO SCH (08:21)
[2019-12-15] MEDS: atenoloL 25 MG TAB PO SCH ×2 (08:22→20:12)
[2019-12-15] MEDS: ACETAMINOPHEN 650MG ER TAB (TYLENOL ARTHRITIS) PO PRN (08:26)
--- NOTE | 2019-12-15 08:54 | IPNPDOC ---
Text Note Date of Service The patient was seen on 12/15/19. NOTE Subjective: Says feels good today. Slept well. He had a good breakfast. Heart rate controlled overnight. No fever or chills. Oral intake is improving. Having bowel movements. Physical Exam: Vitals: As below General: Awake alert and cooperative, comfortable HEENT: Normocephalic, atraumatic, moist mucous membranes, anicteric eyes , No oral thrush. Chest: decreased breath sounds on the right base till mid back, left clear to auscultation CVS: irregularly irregular heart rate, no rub or gallop, soft systolic murmur in the parasternal area heard. Abdomen: mildly distended, nontender , cholecystostomy drain present, normal bowel sounds. Extremities: no edema, no cyanosis or clubbing. Neuro: no focal neurodeficit. Labs and Radiology: Reviewed Assessment and Plan: 84 years old man with CAD s/p CABG, s/p AVR with bio prosthetic valve, hypertension, hyperlipidemia, chronic atrial fibrillation, BPH and chronic right pleural effusion who presented to the ED reporting 3 days of abdominal pain, nausea, emesis, bloating and distention. He reported having e aten well with his family on mother's day but had abdominal pain since that dinner that has been waxing and waning which made him come to the ED. In the ED, CT A/P revealed cholelithiasis with associated gall bladder wall thickening and fat stranding c/w cholecystitis, as well as a bladder stone (2 .1cm), punctate non-obstructing kidney stones with no hydro and his previously noted large R pleural effusion (recently drained in 08/2019). He was admitted for acute cholecystitis. Acute cholecystitis s/p cholecystostomy drain on 12/09/19 Continue IV antibiotics, Zosyn Protein calorie malnutrition Has low albumin, poor oral intake for several days Improving oral intake. Atrial fibrillation with RVR hear rate now controlled. changed metoprolol to atenolol for better heart rate control. Restarted Xarelto follows with Dr Salgado in [place]. Large Recurrent right pleural effusion probably cardiac in origin due to moderate to severe pulmonary hypertension with dilated right heart and right heart failure with mitral regurgitation. IR drainage if symptomatic last drainage in aug 2019. Was seen by Dr Oates at that time and he recommended not not drain it again unless symptomatic. Echo in 2019: Normal left ventricle (LV) size with hyperdynamic LV systolic function. Dilated globally hypokinetic right ventricle. Severe biatrial enlargement (right atrium is much larger than left). Normal function of aortic bioprosthesis. Plpm-rx-[id number] mitral insufficiency. Severe tricuspid insufficiency. Elevated central venous pressure. RVSP about [address] Oates and per him the effusion is about the same size as in August and does not need to be drained if not SOB. Patient tells me he has an appointment with a lung specialist in [place] for this. HTN (hypertension) lisinopril dose reduced metoprolol changed to atenolol. Hyperlipemia statin Hypokalemia Resolved CAD S/P CABG continue betablocker, statin and xarelto BPH continue flomax and finasteride H/o kidney stones and ureteral stone H/o Aortic valve replacement H/O Embolic stroke in 2010 no deficits noted. Bilateral carotid artery stenosis. chronic. VS,Fishbone, I+O VS, Fishbone, I+O Laboratory Tests 12/15/19 06:11 Vital Signs Date Time Temp Pulse Resp B/P (MAP) Pulse Ox O2 Delivery O2 Flow Rate FiO2 12/15/19 08:22 98 12/15/19 08:21 151/98 12/15/19 06:00 97.5 18 97 Room Air 12/09/19 12:15 3 I&O- Last 24 Hours up to 6 AM 12/15/19 06:00 Intake Total 940 ml Output Total 860 ml Balance 80 ml NEHEMIAS STEELE MD December 15, 2019 08:54
--- NOTE | 2019-12-15 13:09 | IPN ---
DATE: 12/15/2019 Patient each day feels better, more active, more alert. Has been eating well. He had some dysphagia that seems to have resolved at this point. It seemed to be associated with his nasogastric (NG) tube that was in place, but otherwise has made some progress. His drain is draining much less fluid. I irrigated this a couple times this morning and got out a little bit more stones, but otherwise no other significant abnormality was appreciated. No purulent discharge was appreciated, and overall his abdomen is softer than it was and it is nontender. IMPRESSION/PLAN: Patient has resolved/resolving his cholecystitis. I do feel that he can go home with his cholecystostomy tube in place. When we can arrange this to be seen on a daily basis by visiting nurses, we will discharge him to home and see him in the office next week. Otherwise, at this point, it seems as though he is making some good steady progress. He still has to have his pulmonary issues evaluated preoperatively, and I would recommend that he have his followup visit in [place] with the residential aide as well. I anticipate that anesthesia will probably want his pleural effusion tapped to optimize him for operative intervention as well preoperatively, but at this point, from a surgical standpoint, doing well.
[2019-12-15 14:00] VITALS: BP 104/65
[2019-12-15] MEDS: RIVAROXABAN 20 MG TAB (XARELTO) PO SCH (17:59)
[2019-12-15] MEDS: ACETAMINOPHEN 500 MG TAB PO PRN (19:00)
[2019-12-15] MEDS: PANTOPRAZOLE 40MG VIAL (C9113 PER 1) IV SCH (20:11)
[2019-12-15] MEDS: SIMVASTATIN 40 MG TAB PO SCH (20:11)
[2019-12-15 22:00] VITALS: BP 140/76
[2019-12-16] MEDS: PIPERACILLIN/TAZOBACTAM SOD 3.375 GM in D5W MINI-BAG PLUS 50 ML IV SCH ×4 (02:00→19:57)
[2019-12-16] MEDS: SODIUM CHLORIDE 0.9% INJ 10 ML SYR IV PRN ×5 (03:35→21:22)
[2019-12-16 06:00] VITALS: BP 123/81
[2019-12-16] MEDS: ACETAMINOPHEN 500 MG TAB PO PRN ×2 (06:17→16:37)
[2019-12-16] MEDS: SODIUM CHLORIDE 0.9% INJ 10 ML SYR IV SCH ×2 (06:17→18:58)
[2019-12-16 06:23] LABS: BASO # 0.1 10^3/uL (0.0-0.2); BASO % 0.7 % (0.0-1.0); EOS # 0.1 10^3/uL (0.0-0.5); EOS % 1.4 % (0.0-3.0); HEMATOCRIT 37.6 % (42.0-52.0); HEMOGLOBIN 12.6 g/dl (13.5-17.5); LYMPH # 0.8 10^3/uL (1.5-5.0); LYMPH % 10.7 % (24.0-44.0); MEAN CORPUSCULAR HEMOGLOBIN 31.1 pg (27.0-33.0); MEAN CORPUSCULAR HGB CONC 33.5 g/dl (32.0-36.5); MEAN CORPUSCULAR VOLUME 92.8 fl (80.0-96.0); MONO # 0.6 10^3/uL (0.0-0.8); NEUTROPHILS # 5.5 10^3/uL (1.5-8.5); NEUTROPHILS % 74.6 % (36.0-66.0); PLATELET COUNT, AUTOMATED 241 10^3/uL (150-450); RED BLOOD COUNT 4.05 10^6/uL (4.30-6.10); WHITE BLOOD COUNT 7.4 10^3/uL (4.0-10.0)
[2019-12-16 06:46] LABS: BLOOD UREA NITROGEN 22 MG/DL (7-18); CALCIUM LEVEL 8.1 MG/DL (8.8-10.2); CARBON DIOXIDE LEVEL 28 MEQ/L (21-32); CHLORIDE LEVEL 106 MEQ/L (98-107); CREATININE FOR GFR 0.81 MG/DL (0.70-1.30); GLOMERULAR FILTRATION RATE > 60.0 (>35); GLUCOSE, FASTING 96 MG/DL (70-100); POTASSIUM SERUM 4.2 MEQ/L (3.5-5.1); SODIUM LEVEL 138 MEQ/L (136-145)
[2019-12-16] MEDS: SUCRALFATE SUSP 1GM/10ML UD PO SCH ×4 (07:30→20:00)
[2019-12-16] MEDS: TAMSULOSIN 0.4 MG CAP PO SCH (08:14)
[2019-12-16] MEDS: oxyBUTYnin 5 MG TAB PO SCH (08:14)
[2019-12-16] MEDS: FINASTERIDE 5 MG TAB PO SCH (08:14)
[2019-12-16] MEDS: atenoloL 25 MG TAB PO SCH ×2 (08:14→20:06)
[2019-12-16] MEDS: FUROSEMIDE 20 MG TAB PO SCH (08:15)
[2019-12-16] MEDS: lisinopriL 10 MG TAB PO SCH (08:15)
--- NOTE | 2019-12-16 13:08 | IPN ---
DATE: 12/16/2019 The patient seems to be making some good progress every day. He is looking better. He is getting more active. He has been moving in the holidays. He did have a problem with activity level on Monday, and physical therapy (PT) did not feel comfortable discharging him to home at that point. Hopefully he will be able to be discharged to home tomorrow. In any case, at this point his drain is draining some minimal amounts, and I have been flushing this on a daily basis and overall been getting some minimal small gallstones out, but otherwise it looks like it is healing nicely. He is doing well with the drain in place. He has had no nausea, no vomiting and tolerating a regular diet. His abdomen is soft, nontender, nondistended. IMPRESSION AND PLAN: Patient seems to be making some good progress. I anticipate he will be discharged home. Once he is discharged home, hopefully we can get him seen by his lung specialist in [place] and once he is seen optimized for operative intervention should they find no other significant abnormality causing this recurrent right pleural effusion. He also states that he has a bladder stone that needs to be evaluated; however, this may take a back seat to his gallbladder being removed. It is not unreasonable to have him followup with urology as an outpatient, however.
--- NOTE | 2019-12-16 13:51 | IPNPDOC ---
Text Note Date of Service The patient was seen on 12/16/19. NOTE Subjective: Doing well. Heart rate controlled overnight. No fever or chills. Oral intake is improving. Having bowel movements. Moving around well. Walked outside in the corridor yesterday. Has not been cleared by PT yet. Physical Exam: Vitals: As below General: Awake alert and cooperative, comfortable HEENT: Normocephalic, atraumatic, moist mucous membranes, anicteric eyes , No oral thrush. Chest: decreased breath sounds on the right base till mid back, left clear to auscultation CVS: irregularly irregular heart rate, no rub or gallop, soft systolic murmur in the parasternal area heard. Abdomen: mildly distended, nontender , cholecystostomy drain present, normal bowel sounds. Extremities: no edema, no cyanosis or clubbing. Neuro: no focal neurodeficit. Labs and Radiology: Reviewed Assessment and Plan: 84 years old man with CAD s/p CABG, s/p AVR with bio prosthetic valve, hypertension, hyperlipidemia, chronic atrial fibrillation, BPH and chronic right pleural effusion who presented to the ED reporting 3 days of abdominal pain, nausea, emesis, bloating and distention. He reported having eaten well with his family on mother's day but had abdominal pain since that dinner that has been waxing and waning which made him come to the ED. In the ED, CT A/P revealed cholelithiasis with associated gall bladder wall thickening and fat stranding c/w cholecystitis, as well as a bladder stone (2.1cm), punctate non-obstructing kidney stones with no hydro and his previously noted large R pleural effusion (recently drained in 08/2019). He was admitted for acute cholecystitis. Acute cholecystitis s/p cholecystostomy drain on 12/09/19 Continue IV antibiotics, Zosyn will change to augmentin tomorrow. Follow up with Dr Castellanos after discharge. Protein calorie malnutrition Has low albumin, poor oral intake for several days Improving oral intake. Atrial fibrillation with RVR hear rate now controlled. changed metoprolol to atenolol for better heart rate control. Restarted Xarelto follows with Dr Salgado in [place]. Large Recurrent right pleural effusion probably cardiac in origin due to moderate to severe pulmonary hypertension with dilated right heart and right heart failure with mitral regurgitation. IR drainage if symptomatic last drainage in aug 2019. Was seen by Dr Oates at that time and he recommended not not drain it again unless symptomatic. Echo in 2019: Normal left ventricle (LV) size with hyperdynamic LV systolic function. Dilated globally hypokinetic right ventricle. Severe biatrial enlargement (right atrium is much larger than left). Normal function of aortic bioprosthesis. Dkaq-ly-fukxycir mitral insufficiency. Severe tricuspid insufficiency. Elevated central venous pressure. RVSP about [address] Oates and per him the effusion is about the same size as in August and does not need to be drained if not SOB. Patient tells me he has an appointment with a lung specialist in [place] for this. Patient will possibly need this tapped prior to surgery for medical optimization. HTN (hypertension) lisinopril dose reduced metoprolol changed to atenolol. Hyperlipemia statin Hypokalemia Resolved CAD S/P CABG continue betablocker, statin and xarelto BPH, Bladder stone continue flomax and finasteride urology referral on discharge. H/o kidney stones and ureteral stone bladder stone urology referral. H/o Aortic valve replacement H/O Embolic stroke in 2010 no deficits noted. Bilateral carotid artery stenosis. chronic. Dispo: home in 24 hours VS,[place], I+O VS, [place], I+O Laboratory Tests 12/16/19 05:52 Vital Signs Date Time Temp Pulse Resp B/P (MAP) Pulse Ox O2 Delivery O2 Flow Rate FiO2 12/16/19 08:14 90 152/97 12/16/19 06:00 97.2 18 97 Room Air I&O- Last 24 Hours up to 6 AM 12/16/19 05:59 Intake Total 540 ml Output Total 820 ml Balance -280 ml NEHEMIAS STEELE MD December 16, 2019 08:22
[2019-12-16 14:00] VITALS: BP 132/87
[2019-12-16] MEDS: RIVAROXABAN 20 MG TAB (XARELTO) PO SCH (19:01)
[2019-12-16] MEDS: PANTOPRAZOLE 40MG VIAL (C9113 PER 1) IV SCH (19:57)
[2019-12-16] MEDS: SIMVASTATIN 40 MG TAB PO SCH (20:03)
[2019-12-16 22:00] VITALS: BP 150/80
[2019-12-17] MEDS: SODIUM CHLORIDE 0.9% INJ 10 ML SYR IV SCH (05:08)
[2019-12-17 05:59] LABS: BASO # 0.1 10^3/uL (0.0-0.2); BASO % 0.8 % (0.0-1.0); EOS # 0.1 10^3/uL (0.0-0.5); EOS % 1.1 % (0.0-3.0); HEMATOCRIT 38.7 % (42.0-52.0); LYMPH # 0.9 10^3/uL (1.5-5.0); LYMPH % 12.6 % (24.0-44.0); MEAN CORPUSCULAR HGB CONC 33.6 g/dl (32.0-36.5); MEAN CORPUSCULAR VOLUME 92.4 fl (80.0-96.0); MONO # 0.6 10^3/uL (0.0-0.8); NEUTROPHILS # 5.4 10^3/uL (1.5-8.5); NEUTROPHILS % 72.9 % (36.0-66.0); PLATELET COUNT, AUTOMATED 253 10^3/uL (150-450); RED BLOOD COUNT 4.19 10^6/uL (4.30-6.10); WHITE BLOOD COUNT 7.4 10^3/uL (4.0-10.0)
[2019-12-17 06:00] VITALS: BP 133/78
[2019-12-17] MEDS: ACETAMINOPHEN 500 MG TAB PO PRN (06:00)
[2019-12-17 06:21] LABS: BLOOD UREA NITROGEN 23 MG/DL (7-18); CARBON DIOXIDE LEVEL 28 MEQ/L (21-32); CHLORIDE LEVEL 105 MEQ/L (98-107); CREATININE FOR GFR 0.89 MG/DL (0.70-1.30); GLOMERULAR FILTRATION RATE > 60.0 (>35); GLUCOSE, FASTING 94 MG/DL (70-100); POTASSIUM SERUM 4.7 MEQ/L (3.5-5.1); SODIUM LEVEL 139 MEQ/L (136-145)
[2019-12-17 08:03] VITALS: BP 143/81
[2019-12-17] MEDS: atenoloL 25 MG TAB PO SCH (08:03)
[2019-12-17] MEDS: lisinopriL 10 MG TAB PO SCH (08:03)
[2019-12-17] MEDS: oxyBUTYnin 5 MG TAB PO SCH (08:03)
[2019-12-17] MEDS: SUCRALFATE SUSP 1GM/10ML UD PO SCH ×2 (08:03→11:21)
[2019-12-17] MEDS: TAMSULOSIN 0.4 MG CAP PO SCH (08:03)
[2019-12-17] MEDS: FINASTERIDE 5 MG TAB PO SCH (08:03)
[2019-12-17] MEDS: FUROSEMIDE 20 MG TAB PO SCH (08:03)
[2019-12-17] MEDS ORDERED: AUGMENTIN 875 MG TAB PO SCH (09:00)
--- NOTE | 2019-12-17 11:33 | DS.PDOC ---
Discharge Summary General Date of Admission December 04, 2019 at 20:39 Date of Discharge 12/17/2019 Attending Physician: LORENA VIVEROS MD Discharge Summary PROCEDURES PERFORMED DURING STAY: Cholecystostomy drainage with tube placement on 12/08, PICC line placement on 12/09 ADMITTING DIAGNOSES: 1. Cholecystitis DISCHARGE DIAGNOSES: 1. Cholecystitis 2. Chronic A. fib, with acute RVR during this admission, now rate controlled 3. CAD 4. Chronic hypertension 5. Hyperlipidemia 6. BPH 7. History of kidney stones, currently with 2.1cm bladder stone and punctate bilateral kidney stones without obstruction 8. Chronic right sided pleural effusion 9. HFpEF 10. pulmonary hypertension COMPLICATIONS/CHIEF COMPLAINT: Abdominal pain HISTORY OF PRESENT ILLNESS: 84 years old man with CAD s/p CABG, s/p AVR with bio prosthetic valve, hypertension, hyperlipidemia, chronic atrial fibrillation, BPH and chronic right pleural effusion who presented to the ED reporting 3 days of abdominal pain, nausea, emesis, bloating and distention. He reports having eaten well with his family on mother's day but had abdominal pain since that dinner that was waxing and waning with associated nausea and nonbloody emesis such that his and daughter decided that he should come to the hospital. HOSPITAL COURSE: In the ED, he was hemodynamically stable and afebrile and studies showed leukocytosis to 12.3, stable non ischemic EKG, negative trops, lipase and LFTs wnl and CT A/P revealed cholelithiasis with associated gall bladder wall thickening and fat stranding c/w cholecystitis, as well as a bladder stone (2.1cm), punctate non-obstructing kidney stones with no hydro and his previously noted large R pleural effusion (recently drained in 08/2019). He was started on empiric zosyn, made NPO and surgery was consulted (Dr. Castellanos). His course was c/b development of an ileus and he had transient placement of an NGT. He had a cholecystostomy tube placed on 12/08 with improvement in symptoms, was continued on zosyn for the duration of his hospitalization, now being switched to augmentin before discharge home with plan for eventual cholecystectomy after resolution of his acute cholecystitis, with surgery suggesting medical optimization with drainage of his chronic pleural effusion before surgery. His hospital course was c/b AFib with RVR for which he was switched to atenolol gtom metoprolol with good effect and martin sepsis with possible abscess/collection for which he had percutaneous cholecystostomy drainage with drain placement by IR on 12/08 with resolution of sepsis with drainage and continued antibiotics. 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 DISCHARGE MEDICATIONS: Please see below. ALLERGIES: Please see below. PHYSICAL EXAMINATION ON DISCHARGE: VITAL SIGNS: Please see below. Vitals: As below General: Awake alert and cooperative, comfortable HEENT: NCAT, EOMI, PERRLA, MMM Chest: R posterior field stably diminished to custodial up the lung field, L side CTA without crackles or wheezing CVS: irregularly irregular, normal rate, no rub or gallop, soft systolic murmur in the parasternal area. Abdomen: Normoactive bowel sounds, mildly distended, nontender, cholecystostomy drain in place, no leakage or erythema around it. Extremities: no LE edema, WWP. Neuro: no focal neurodeficit. psych: AOx3 LABORATORY DATA: Please see below. IMAGIN/13: CT A/P: 1. Findings concerning for acute cholecystitis in the setting of cholelithiasis. Recommend GI consultation and correlation with LFTs. 2. Partially visualized moderate to large right pleural effusion. 3. 2.1 cm stellate urinary bladder stone. 12/05: AXR 1. Increased right pleural effusion. 2. Stable cardiomegaly. 3. Nonspecific intestinal gas pattern without evidence of a significant ileus or obstruction. There is a small amount of gas within a few small bowel loops, which are not dilated. 12/07: CXR Findings consistent with moderate right pleural effusion essentially unchanged. PROGNOSIS: Good ACTIVITY: As tolerated DIET: regular DISCHARGE PLAN: Home with surgery, pulmonology and urology follow up DISPOSITION: Home with 5d of augmentin, cholecystostomy tube with close surgery follow up. DISCHARGE INSTRUCTIONS: 1. Continue augmentin, follow up with surgery, pulmonology and urology. ITEMS TO FOLLOWUP ON ON OUTPATIENT: 1. Cholecystitis 2. Planning for cholecystectomy 3. R pleural effusion drainage and workup with pulmonology 4. urology follow up DISCHARGE CONDITION: Stable TIME SPENT ON DISCHARGE: 52 minutes. Vital Signs/I&Os Vital Signs Date Time Temp Pulse Resp B/P (MAP) Pulse Ox O2 Delivery O2 Flow Rate FiO2 12/16/19 22:00 98.0 87 17 150/80 (103) 97 Room Air I&O- Last 24 Hours up to 6 AM 12/17/19 06:00 Intake Total 1550 ml Output Total 990 ml Balance 560 ml Laboratory Data Labs 24H Laboratory Tests 2 12/17/19 05:44: Immature Granulocyte % (Auto) 4.6H, Neutrophils (%) (Auto) 72.9H, Lymphocytes (%) (Auto) 12.6L, Monocytes (%) (Auto) 8.0H, Eosinophils (%) (Auto) 1.1, Basophils (%) (Auto) 0.8, Neutrophils # (Auto) 5.4, Lymphocytes # (Auto) 0.9L, Monocytes # (Auto) 0.6, Eosinophils # (Auto) 0.1, Basophils # (Auto) 0.1, Nucleated Red Blood Cells % (auto) 0.0, Anion Gap 6L, Glomerular Filtration Rate > 60.0, Calcium Level 8.0L CBC/BMP Laboratory Tests 12/17/19 05:44 Discharge Medications Scheduled Finasteride (Finasteride) 5 Mg Tablet, 5 MG PO DAILY, (Reported) Fish Oil/Dha/Epa (Fish Oil 1,200 mg Fish Oil) 1 Each Capsule, 1 CAP PO BID, (Reported) Furosemide (Furosemide) 20 Mg Tablet, 20 MG PO DAILY, (Reported) Lisinopril (Lisinopril) 30 Mg Tablet, 30 MG PO DAILY, (Reported) Lovastatin (Lovastatin) 40 Mg Tablet, 80 MG PO QHS, (Reported) Metoprolol Tartrate (Metoprolol Tartrate) 25 Mg Tablet, 25 MG PO BID, (Reported) Multivitamin (Multivitamins) 1 Each Capsule, 1 TAB PO DAILY, (Reported) Oxybutynin Chloride (Oxybutynin Chloride) 5 Mg Tablet, 5 MG PO DAILY, (Reported) Rivaroxaban (Xarelto) 20 Mg Tablet, 20 MG PO QPM, (Reported) WITH DINNER Tamsulosin Hcl (Tamsulosin HCl) 0.4 Mg Capsule, 0.4 MG PO DAILY, (Reported) Ubidecarenone (Co Q-10) 200 Mg Capsule, 200 MG PO DAILY, (Reported) Scheduled PRN Acetaminophen (Arthritis Pain Reliever) 650 Mg Tablet.er, 650 MG PO TID PRN for PAIN, (Reported) Metoprolol Tartrate (Metoprolol Tartrate) 25 Mg Tablet, 25 MG PO DAILY PRN for HBP, (Reported) Allergies Coded Allergies: No Known Allergies (Unverified , 10/15/19) LORENA VIVEROS MD December 17, 2019 07:24
[2019-12-17] MEDS ORDERED: ATEN25TA PO (11:44)
[2019-12-17] MEDS ORDERED: AMOX875T2 PO (11:44)
[2019-12-17] MEDS ORDERED: LISI10TA4 PO (11:44)
[2019-12-17] MEDS ORDERED: SUCR1TA PO (11:44)
[2019-12-17] MEDS ORDERED: PANT40TA3 PO (11:45)
== END 2019-12-17 14:15 | disposition home health service (06) | DRG 445 ==
LOC: M ED 15:26 → M ED INP 20:39 → ENRESERV 21:07 → M PCU 21:28 → M MSPAV 12-12 13:33
PROVIDERS: ADMIT Internal Medicine; ATTEND Internal Medicine
PROC: 02HV33Z Insertion of Infusion Device into Superior Vena Cava, Percutaneous Approach (ICD-10-PCS; 2019-12-08)
PROC: 0F9430Z Drainage of Gallbladder with Drainage Device, Percutaneous Approach (ICD-10-PCS; principal; 2019-12-09 11:30)
DX: K80.00 Calculus of gallbladder with acute cholecystitis without obstruction (principal); K56.7 Ileus, unspecified; I48.20 Chronic atrial fibrillation, unspecified; J90 Pleural effusion, not elsewhere classified; E46 Unspecified protein-calorie malnutrition; E87.6 Hypokalemia; I50.810 Right heart failure, unspecified; I11.0 Hypertensive heart disease with heart failure; I25.10 Atherosclerotic heart disease of native coronary artery without angina pectoris; E78.5 Hyperlipidemia, unspecified; N20.0 Calculus of kidney; N40.0 Benign prostatic hyperplasia without lower urinary tract symptoms; I27.20 Pulmonary hypertension, unspecified; Z95.1 Presence of aortocoronary bypass graft; Z95.2 Presence of prosthetic heart valve; D72.829 Elevated white blood cell count, unspecified; Z79.899 Other long term (current) drug therapy; Z86.73 Personal history of transient ischemic attack (TIA), and cerebral infarction without residual deficits

== ENCOUNTER → 2020-02-04 | Outpatient (POV) | payer MEDICARE ==
[~2020-02-04] MED LIST changes: +AMOX875T2 PO; +ATEN25TA PO; +LISI10TA4 PO; +OXYB5TAB10 PO; +PANT40TA3 PO; +SUCR1TA PO
--- NOTE | 2020-02-06 11:19 | IRPN ---
[facility] IR Progress Note IR Progress Note DATE: Feb 04, 2020 Patient agreed to this telephone consultation. Duration of call 10 minutes. FOLLOW-UP: Status post cholecystostomy catheter placement couple months ago for acute cholecystitis. Patient denies abdominal pain, nausea, vomiting, fevers or chills. The catheter was removed by surgery. No plans for gallbladder surgery at present. IMPRESSION: Doing well status post treatment for acute cholecystitis with cholecystostomy catheter. Surgery removed the catheter. No further follow-up scheduled from IR unless requested by patient and/or referring provider. Thank you for this referral Cc Dr. Armando Castellanos Allergies Coded Allergies: No Known Allergies (Unverified , 10/15/19) TANK GOMEZ MD Feb 06, 2020 11:19
== END ==
LOC: M IRPOV 07:46
PROVIDERS: ATTEND Radiology Diagnostic Radiology
DX: Z48.815 Encounter for surgical aftercare following surgery on the digestive system (principal)

== ENCOUNTER → 2020-02-27 | Outpatient (CLI) | payer MEDICARE ==
[~2020-02-27] MED LIST changes: +PANT40TA29 PO; -PANT40TA3 PO
--- NOTE | 2020-04-14 08:25 | REP ---
ULTRASOUND-GUIDED RIGHT PLEUROCENTESIS The procedure was performed under the direct supervision of Dr. Grimes. The risks and benefits of the procedure were explained to the patient and informed consent was obtained. The right pleural effusion was localized using ultrasound guidance. The skin was prepped and draped in a sterile fashion. 1% Lidocaine was used as a local anesthetic. An 8-Uzbek multi-side hole catheter was inserted using trocar technique. 2115 mL of yellow fluid was withdrawn with a sample sent to the lab for analysis. A 2-view chest x-ray performed immediately after the procedure demonstrates improved pleural effusion. There is a small right subpulmonic pneumothorax. Recommend a follow-up chest x-ray in one to two days. The patient tolerated the procedure well and there were no immediate complications. After the appropriate amount of monitor convalescent, the patient was discharged from the department. KATTY
--- NOTE | 2020-04-14 08:26 | REP ---
CHEST X-RAY: 2-VIEWS HISTORY: Post right thoracentesis evaluation. COMPARISON: Chest x-ray done one hour prior, pre-procedure. Chronic right pleural effusion. FINDINGS: The patient is status post prior median sternotomy and aortic valve replacement. The aorta is somewhat tortuous, as before. The right pleural effusion is much improved post thoracentesis. There is a small loculated right sub-pulmonic pneumothorax and a small right apical pneumothorax. There is an air fluid level in the right base. The patient is asymptomatic and a follow up chest x-ray is recommended in 1-2 days. The remaining lung cordova are clear. The heart size is borderline, as before. There are degenerative changes in the thoracic spine. IMPRESSION: Small right sub-pulmonic right apical post procedure pneumothorax. Recommend follow up chest x-ray in 1-2 days. Improved right pleural effusion post thoracentesis. MTDD
[2020-04-23 14:01] LABS: APPEARANCE, BODY FLUID CLEAR
[2020-04-25 13:18] LABS: PH BODY FLUID 7.631 UNITS (NOT ESTABLISHED); SOURCE, BODY FLUID pH PLEURAL
[2020-04-25 16:27] LABS: AMYLASE, BODY FLUID 23 U/L (NOT ESTABLISHED); LDH, BODY FLUID 288 U/L (NOT ESTABLISHED); SOURCE, BODY FLUID AMYLASE PLEURAL; SOURCE, BODY FLUID GLUCOSE PLEURAL; SOURCE, BODY FLUID LDH PLEURAL; SOURCE, BODY FLUID TOT PROTEIN PERITONEAL; TOTAL PROTEIN, BODY FLUID 3.4 G/DL (NOT ESTABLISHED)
== END ==
LOC: M RAD 09:04
PROVIDERS: ATTEND Internal Medicine Pulmonary Disease
DX: J90 Pleural effusion, not elsewhere classified (principal)

== ENCOUNTER 2021-02-11 11:15 | Emergency (ER) | payer MEDICARE ==
[~2021-02-11] VITALS: Ht 170.2 cm; Wt 79.0 kg
[~2021-02-11 11:15] MED LIST changes: +FERR325T3 PO; +LISI10TA22 PO; -LISI10TA4 PO
--- NOTE | 2021-02-11 13:07 | REP ---
INDICATION: nephrolithiasis COMPARISON: 12/04/2019. TECHNIQUE: CT Scan of the abdomen and pelvis was performed without intravenous contrast. Sagittal and coronal reconstruction images performed. FINDINGS: Lung bases: There is a moderate to large right pleural effusion which appears similar in size compared to the prior study. There is a small left pleural effusion. There is mild patchy atelectasis/infiltrate in the visualized right lung base. There is mild cardiomegaly. Liver: Grossly unremarkable. Gallbladder: The gallbladder appears collapsed. Spleen: Grossly unremarkable. Adrenals: Normal. Pancreas: Grossly unremarkable.. Kidneys: There is a 12 mm calculus in the right renal pelvis, at the ureteropelvic junction. I suspect wall thickening of the proximal right ureter just distal to the level of the stone, with possible neoplasm at that location. The left kidney demonstrates no hydroureteronephrosis. There is a punctate calculus in the mid left renal collecting system. There is a 4 mm calculus in the lower pole. There is an exophytic cyst anteriorly of the left lower pole measuring 2.2 cm in diameter. Small and large bowel: There is sigmoid diverticulosis. There is no acute bowel inflammation. Free fluid: None. Abdominal aorta: No aneurysm. Adenopathy: None. Appendix: Not inflamed. Osseous structures: There are diffuse degenerative changes of the spine. 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 There is a total left hip prosthesis. Pelvis: The prostate is enlarged. There is a large calcification in the right base of the bladder, as seen on prior study, measuring approximately 2.7 cm in maximum diameter. IMPRESSION: Moderate to large right pleural effusion which is similar to the prior exam. Mild adjacent right base atelectasis/infiltrate. Small left pleural effusion. 12 mm calculus at the right ureteropelvic junction without hydronephrosis. The proximal right ureter just distal to the level of the calculus is focally thickened with possible neoplasm at that location. No left hydroureteronephrosis. Two left intrarenal calculi. Large bladder calculus on the right. <Electronically signed by Abraham Christianson > 02/11/21 [id number]
[2021-02-11 13:58] LABS: HEMATOCRIT 43.5 % (42.0-52.0); HEMOGLOBIN 13.7 g/dl (13.5-17.5); MEAN CORPUSCULAR HEMOGLOBIN 30.5 pg (27.0-33.0); MEAN CORPUSCULAR HGB CONC 31.5 g/dl (32.0-36.5); MEAN CORPUSCULAR VOLUME 96.9 fl (80.0-96.0); PLATELET COUNT, AUTOMATED 164 10^3/uL (150-450); RED BLOOD COUNT 4.49 10^6/uL (4.30-6.10); WHITE BLOOD COUNT 6.6 10^3/uL (4.0-10.0)
[2021-02-11 14:06] LABS: BLOOD UREA NITROGEN 27 MG/DL (7-18); CALCIUM LEVEL 9.2 MG/DL (8.8-10.2); CARBON DIOXIDE LEVEL 30 MEQ/L (21-32); CHLORIDE LEVEL 105 MEQ/L (98-107); CREATININE FOR GFR 0.85 MG/DL (0.70-1.30); GLOMERULAR FILTRATION RATE > 60.0 (>35); GLUCOSE, FASTING 68 MG/DL (70-100); POTASSIUM SERUM 4.4 MEQ/L (3.5-5.1); SODIUM LEVEL 139 MEQ/L (136-145)
[2021-02-11 14:10] LABS: INR 1.49; PROTHROMBIN TIME 18.3 SECONDS (12.5-14.3)
[2021-02-11 15:00] VITALS: BP 145/80
== END 2021-02-11 16:51 | disposition home or self-care (01) ==
LOC: M ED 11:15
DX: N20.1 Calculus of ureter (principal); R31.9 Hematuria, unspecified; I48.91 Unspecified atrial fibrillation; I50.9 Heart failure, unspecified

== ENCOUNTER → 2021-03-06 | Outpatient (CLI) | payer MEDICARE | LOC: M LABSMTC 11:17 | PROVIDERS: ATTEND Anesthesiology | DX: Z20.828 Contact with and (suspected) exposure to other viral communicable diseases (principal); Z11.59 Encounter for screening for other viral diseases ==

== ENCOUNTER 2021-03-10 06:18 | Day surgery (SDC) | payer MEDICARE ==
[~2021-03-10] VITALS: Ht 170.2 cm; Wt 77.6 kg
[~2021-03-10 06:18] MED LIST changes: +LR 1,000 ML IV ONE; +VITA500C19 PO; +VITMTA PO; +ceFAZolin SOD 2 GM in IV 1 EA IV ONE
[2021-03-10] MEDS ORDERED: CONRAY-60 60% 50ML VIAL (Q9961) As Ordered ONE (07:10)
[2021-03-10] MEDS ORDERED: fentaNYL 100 MCG/2 ML INJECTION (J3010) As Ordered ONE (07:12)
[2021-03-10] MEDS ORDERED: LIDOCAINE 2% 100MG/5ML SDV (FOR ANES.) As Ordered ONE (07:13)
[2021-03-10] MEDS ORDERED: propofoL 200 MG/20 ML VIAL As Ordered ONE (07:13)
[2021-03-10] MEDS ORDERED: ONDANSETRON 4MG/2ML VIAL As Ordered ONE (07:13)
[2021-03-10] MEDS ORDERED: dexameTHASONE 4 MG/ML 1ML VIAL (J1100 PER 1MG) As Ordered ONE (07:13)
[2021-03-10] MEDS ORDERED: ACETAMINOPHEN 1000MG 100ML IV BTL (OFIRMEV) (J0131 PER 10MG) As Ordered ONE (07:15)
[2021-03-10] MEDS ORDERED: PHENYLephrine 500MCG 5ML (100MCG/ML) SYRINGE As Ordered ONE ×2 (07:53→07:56)
[2021-03-10] MEDS ORDERED: ePHEDrine SULFATE 25 MG/5 ML(5MG/ML) SYRINGE As Ordered ONE (07:56)
--- NOTE | 2021-03-10 09:41 | REP ---
INDICATION: RIGHT STENT PLACEMENT. COMPARISON: CT 02/11/2021. TECHNIQUE: Multiple C-arm views abdomen and pelvis. FINDINGS: Contrast partially opacifies the right pelvocaliceal system. A right ureteral stent is placed. The proximal end is coiled in the right upper pole calices. The distal end is coiled in the urinary bladder. IMPRESSION: 13 seconds of fluoroscopy time was utilized. <Electronically signed by Abraham Christianson > 03/10/21 [id number]
[2021-03-10] MEDS ORDERED: LR 1,000 ML IV SCH (10:25)
[2021-03-10] MEDS ORDERED: METOCLOPRAMIDE INJ 10MG/2ML VIAL (J2765 PER 1) IV PRN (10:25)
[2021-03-10] MEDS ORDERED: fentaNYL 100 MCG/2 ML INJECTION (J3010) IV PRN (10:25)
[2021-03-10] MEDS ORDERED: MEPERIDINE INJ 25 MG/ML VIAL (J2175) IV PRN (10:25)
[2021-03-10] MEDS ORDERED: ONDANSETRON 4MG/2ML VIAL IV PRN (10:25)
[2021-03-10] MEDS ORDERED: oxyCODONE 5MG TAB PO PRN (10:25)
[2021-03-10] MEDS ORDERED: ACETAMINOPHEN TAB 650MG DOSE (2X325MG) PO PRN (10:30)
[2021-03-10 11:13] VITALS: BP 135/70
--- NOTE | 2021-03-10 11:50 | RO ---
OPERATIVE NOTE DATE OF OPERATION: 03/10/2021 PREOPERATIVE DIAGNOSIS: Right kidney stone, bladder stone. POSTOPERATIVE DIAGNOSIS: Right kidney stone, bladder stone. PROCEDURE: Cystoscopy, right ureteroscopy with laser lithotripsy and basket extractions of stones, right retrograde pyelogram with intraop interpretation of images, right ureteral stent placement, laser cystolitholapaxy. SURGEON: Efren Fuller MD EKG MONITOR: None. ANESTHESIA: General. OPERATIVE INDICATIONS: This is an 85-year-old male who was found to have a 1 cm right renal pelvic stone as well as an approximately 3cm size bladder stone. He was brought to the operating room today for treatment. DESCRIPTION OF PROCEDURE: The patient was brought to the operating room and general anesthesia was induced. Prophylactic antibiotics were infused. A rigid cystoscope was inserted into the urethral meatus and advanced into the bladder. A guidewire was advanced up the right collecting system. I then advanced a ureteral access sheath up the right collecting system. I went up the access sheath with a flexible ureteroscope and within the renal pelvis the 1 cm stone was seen. The stone was fragmented into smaller pieces using a 272 micron laser fiber and all the fragments were removed using a basket. Once done only very tiny stone fragments remained. A retrograde pyelogram was then performed and was notable for mild to moderate right hydronephrosis with no extravasation. I then withdrew the ureteroscope along with the access sheath and no additional stones were seen inside the ureter. I then utilized the guidewire to advance a 6-Jordanian x 22-32 cm JJ ureteral stent up the right collecting system. The wire was then removed and there were adequate curls of the stent in right renal pelvis and in the bladder. Once done with that I then focused on the large bladder stone. I utilized a 1000 micron laser fiber to fragment the stone into smaller pieces. Once that was done I utilized a Urovac evacuator to remove the stone fragments from the bladder. Once done there were no remaining fragments. There was mild bleeding from the prostate. 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 The bladder was then emptied of all fluids and this marked the conclusion of the procedure. The scope was then removed. The patient was taken out of the dorsal lithotomy position, awakened from anesthesia, and transported to the recovery room in stable condition. ESTIMATED BLOOD LOSS: 5 mL. COMPLICATIONS: None. SPECIMENS: Right kidney stone fragments, bladder stone fragments. PLAN: The patient will follow up in urology clinic in 2-3 weeks for stent removal. KATTY
== END 2021-03-10 11:16 | disposition home or self-care (01) ==
LOC: M SDC 06:18
PROVIDERS: ATTEND Urology
DX: N21.0 Calculus in bladder (principal); N20.1 Calculus of ureter; I48.91 Unspecified atrial fibrillation; I10 Essential (primary) hypertension; Z95.2 Presence of prosthetic heart valve; I73.9 Peripheral vascular disease, unspecified; E78.5 Hyperlipidemia, unspecified; D64.9 Anemia, unspecified; Z86.73 Personal history of transient ischemic attack (TIA), and cerebral infarction without residual deficits; Z79.01 Long term (current) use of anticoagulants; Z79.899 Other long term (current) drug therapy
CPT/HCPCS: 52317; 52356; 74420; 82365; 88300; C1769; C1894; C2617; J0131; J0690; J1100; J2370; J2405; J3010; Q9961

== ENCOUNTER 2022-08-29 15:46 | Emergency (ER) | payer MEDICARE ==
[~2022-08-29] VITALS: Ht 170.2 cm; Wt 178.0 kg
[~2022-08-29 15:46] MED LIST changes: -LR 1,000 ML IV ONE; -ceFAZolin SOD 2 GM in IV 1 EA IV ONE
[2022-08-29 17:36] LABS: BASO # 0.1 10^3/uL (0.0-0.2); BASO % 0.9 % (0.0-1.0); EOS # 0.1 10^3/uL (0.0-0.5); EOS % 2.6 % (0.0-3.0); HEMATOCRIT 37.7 % (42.0-52.0); HEMOGLOBIN 11.6 g/dl (13.5-17.5); LYMPH # 0.7 10^3/uL (1.5-5.0); LYMPH % 12.6 % (24.0-44.0); MEAN CORPUSCULAR HEMOGLOBIN 30.5 pg (27.0-33.0); MEAN CORPUSCULAR HGB CONC 30.8 g/dl (32.0-36.5); MEAN CORPUSCULAR VOLUME 99.2 fl (80.0-96.0); MONO # 0.8 10^3/uL (0.0-0.8); NEUTROPHILS # 3.7 10^3/uL (1.5-8.5); NEUTROPHILS % 68.4 % (36.0-66.0); PLATELET COUNT, AUTOMATED 167 10^3/uL (150-450); WHITE BLOOD COUNT 5.4 10^3/uL (4.0-10.0)
[2022-08-29 18:03] LABS: BLOOD UREA NITROGEN 45 MG/DL (9-23); CALCIUM LEVEL 8.6 MG/DL (8.3-10.6); CARBON DIOXIDE LEVEL 30 MMOL/L (20-31); CHLORIDE LEVEL 103 MMOL/L (98-107); CREATININE FOR GFR 0.97 MG/DL (0.70-1.30); GLOMERULAR FILTRATION RATE > 60.0 (>35); GLUCOSE, FASTING 108 MG/DL (74-106); POTASSIUM SERUM 4.9 MMOL/L (3.5-5.1); SODIUM LEVEL 139 MMOL/L (136-145)
[2022-08-29 18:45] VITALS: BP 134/72
== END 2022-08-29 19:35 | disposition home or self-care (01) ==
LOC: M ED 15:46
DX: S50.11XA Contusion of right forearm, initial encounter (principal); T45.515A Adverse effect of anticoagulants, initial encounter; R22.31 Localized swelling, mass and lump, right upper limb; I10 Essential (primary) hypertension; E78.5 Hyperlipidemia, unspecified; Z86.79 Personal history of other diseases of the circulatory system; Z79.82 Long term (current) use of aspirin; Z79.811 Long term (current) use of aromatase inhibitors; Z79.899 Other long term (current) drug therapy; Z79.810 Long term (current) use of selective estrogen receptor modulators (SERMs)